=== PATIENT | female | born 1935 | race Caucasian/White ===

== ENCOUNTER 2017-09-03 10:06 | Emergency (ER) | payer MEDICARE, BC ==
[2017-09-03 10:22] VITALS: TEMP 97.2
--- NOTE | 2017-09-03 10:56 | ED ---
Upper Extremity HPI - General Chief Complaint: Extremity Injury, Upper Stated Complaint: Sliver in hand Time Seen by Provider: 09/03/17 10:30 Source: patient, RN notes reviewed Mode of arrival: ambulatory Limitations: no limitations - History of Present Illness Initial Comments: 81-year-old female presents emergency Department chief complaint of foreign body in her right hand. Patient states that she caught her hand on the wooden banister. Patient states is a sliver. She got the tip of the sliver out but the feels that there is more. Her tetanus is up-to-date. Patient denies any drainage no redness. - Related Data Home Medications Medication Instructions Recorded Confirmed Anagrelide HCl [Agrylin] 0.5 mg PO BID 11/06/15 04/18/16 Hydroxyurea [Hydrea] 500 mg PO TUTHSA 11/06/15 04/18/16 Levothyroxine Sodium [Synthroid] 25 mcg PO DAILY 11/06/15 04/18/16 Lovastatin [Mevacor] 20 mg PO HS 11/06/15 04/18/16 amLODIPine BESYLATE [Norvasc] 5 mg PO HS 11/06/15 04/18/16 Cholecalciferol [Vitamin D3] 2,000 unit PO DAILY 02/06/16 04/18/16 Ferrous Sulfate [Iron (65 MG 325 mg PO BID 02/06/16 04/18/16 Elemental)] Lisinopril-Hctz 20-25 mg 1 tab PO DAILY 02/06/16 04/18/16 [Zestoretic 20-25] Vitamin B Complex 1 cap PO DAILY 02/06/16 04/18/16 HYDROcodone/APAP 5-325MG [[place] 1 tab PO TID PRN 04/18/16 04/18/16 5-325] Hydroxyurea 1,000 mg PO MOWEFR 04/18/16 04/18/16 LORazepam [Ativan] 1 mg PO Q6H PRN 04/18/16 04/18/16 Metoprolol Tartrate [Lopressor] 75 mg PO BID 04/18/16 04/18/16 Omeprazole 20 mg PO DAILY 04/18/16 04/18/16 Previous Rx's Medication Instructions Recorded Cephalexin [Keflex] 500 mg PO Q6HR #28 cap 09/03/17 Allergies Allergy/AdvReac Type Severity Reaction Status Date / Time Sulfa (Sulfonamide Allergy Rash/Hives Verified 09/03/17 10:39 Antibiotics) Review of Systems ROS Statement: Those systems with pertinent positive or pertinent negative responses have been documented in the HPI. ROS Other: All systems not noted in ROS Statement are negative. Past Medical History Past Medical History: Blood Disorder, Cancer, Hyperlipidemia, Hypertension, Thyroid Disorder Additional Past Medical History / Comment(s): leukemia History of Any Multi-Drug Resistant Organisms: None Reported Past Surgical History: Joint Replacement Additional Past Surgical History / Comment(s): left knee replacement, ovarian cysts removed, left cataracts Past Psychological History: No Psychological Hx Reported Smoking Status: Never smoker Past Alcohol Use History: None Reported Past Drug Use History: None Reported General Exam Limitations: no limitations General appearance: alert, in no apparent distress Respiratory exam: Present: normal lung sounds bilaterally. Absent: respiratory distress, wheezes, rales, rhonchi, stridor Cardiovascular Exam: Present: regular rate, normal rhythm, normal heart sounds. Absent: systolic murmur, diastolic murmur, rubs, gallop, clicks Extremities exam: Present: other (Right hand there is possible foreign body in noticed any the superficial layers of the skin on right hand yee medial aspect) Course Vital Signs 09/03/17 10:19 Temperature 97.2 F L Pulse Rate 83 Respiratory 16 Rate Blood Pressure 133/84 O2 Sat by Pulse 99 Oximetry Procedures - Procedures Initial comment: Right hand foreign body removal. To anesthetize the area with 1% lidocaine without epinephrine 2 mL were used. 18-gauge needle was used to remove the top layer of skin, foreign body was removed. Still felt there was a partial piece further investigation removed small portions. Unable to visualize any other foreign body at this time there was thoroughly cleaned. Medical Decision Making - Medical Decision Making 81-year-old female presented for foreign body in right hand. Foreign body was removed the concern for possible retained foreign body. We did discuss that she 's have close follow patient was placed on antibiotics and return parameters were discussed. Disposition Clinical Impression: Foreign body (FB) in soft tissue Disposition: HOME SELF-CARE Condition: Stable Instructions: Soft Tissue Foreign Body (ED) Additional Instructions: Please return to the Emergency Department if symptoms worsen or any other concerns. Prescriptions: Cephalexin [Keflex] 500 mg PO Q6HR #28 cap Referrals: Alexys Al MD [Primary Care Provider] - 1-2 days Time of Disposition: 10:56
[2017-09-03 12:11] VITALS: BP 141/68; PULSE 74; RESP 18
== END 2017-09-03 12:03 | disposition home or self-care (01) ==
LOC: EC 10:06
DX: S60.551A Superficial foreign body of right hand, initial encounter (principal); E78.5 Hyperlipidemia, unspecified; I10 Essential (primary) hypertension; E07.9 Disorder of thyroid, unspecified; Z85.6 Personal history of leukemia; Z79.899 Other long term (current) drug therapy; Z88.2 Allergy status to sulfonamides; W45.8XXA Other foreign body or object entering through skin, initial encounter
CPT/HCPCS: 10120; 99283

== ENCOUNTER → 2018-09-10 | Outpatient (CLI) | payer MEDICARE, BC ==
--- NOTE | 2018-09-11 13:03 | ECHOF ---
Referral Reason:D47.3 Thrombocytosis MEASUREMENTS -------- HEIGHT: 170.2 cm WEIGHT: 71.2 kg BP: 151/76 RVIDd: 3.0 cm (< 3.3) IVSd: 0.9 cm (0.6 - 1.1) LVIDd: 3.4 cm (3.9 - 5.3) LVPWd: 1.0 cm (0.6 - 1.1) IVSs: 1.5 cm LVIDs: 2.5 cm LVPWs: 1.4 cm LA Diam: 2.7 cm (2.7 - 3.8) LAESV Index (A-L): 26.24 ml/m Ao Diam: 2.7 cm (2.0 - 3.7) AV Cusp: 1.7 cm (1.5 - 2.6) MV EXCURSION: 11.974 mm (> 18.000) MV EF SLOPE: 39 mm/s (70 - 150) EPSS: 0.3 cm MV E Ganesh: 0.86 m/s MV DecT: 173 ms MV A Ganesh: 1.41 m/s MV E/A Ratio: 0.61 AV maxP.25 mmHg AV meanP.00 mmHg RAP: 5.00 mmHg RVSP: 40.99 mmHg FINDINGS -------- Sinus rhythm. This was a technically adequate study. The left ventricular size is normal. Left ventricular wall thickness is normal. Overall left vent ricular systolic function is normal with, an EF between 55 - 60 %. The right ventricle is normal in size. Normal LA size by volume 22+/-6 ml/m2. The right atrium is normal in size. There is mild aortic valve sclerosis. There is mild aortic stenosis present. Peak/mean gradient a cross the Aortic Valve is 27.25mmHg / 15.00mmHg. The mitral valve leaflets are mildly thickened. Mild mitral annular calcification present. Modera te mitral regurgitation is present. Mild tricuspid regurgitation present. There is mild pulmonary hypertension. The right ventricular systolic pressure, as measured by Doppler, is 40.99mmHg. Moderate pulmonic regurgitation. The aortic root size is normal. Normal inferior vena cava with normal inspiratory collapse consistent with estimated right atrial pre ssure of 5 mmHg. The inferior vena cava is mildly dilated. There is no pericardial effusion. CONCLUSIONS -------- 1. Sinus rhythm. 2. This was a technically adequate study. 3. The left ventricular size is normal. 4. Left ventricular wall thickness is normal. 5. Overall left ventricular systolic function is normal with, an EF between 55 - 60 %. 6. The right ventricle is normal in size. 7. Normal LA size by volume 22+/-6 ml/m2. 8. The right atrium is normal in size. 9. There is mild aortic valve sclerosis. 10. There is mild aortic stenosis present. 11. Peak/mean gradient across the Aortic Valve is 27.25mmHg / 15.00mmHg. 12. The mitral valve leaflets are mildly thickened. 13. Mild mitral annular calcification present. 14. Moderate mitral regurgitation is present. 15. Mild tricuspid regurgitation present. 16. There is mild pulmonary hypertension. 17. The right ventricular systolic pressure, as measured by Doppler, is 40.99mmHg. 18. Moderate pulmonic regurgitation. 19. The aortic root size is normal. 20. Normal inferior vena cava with normal inspiratory collapse consistent with estimated right atrial pressure of 5 mmHg. 21. The inferior vena cava is mildly dilated. 22. There is no pericardial effusion. MANAGER ENGAGEMENT: Danya Ortega RDCS
== END | disposition home or self-care (01) ==
LOC: RADECHMAIN 16:14
PROVIDERS: ATTEND Internal Medicine
DX: I08.1 Rheumatic disorders of both mitral and tricuspid valves (principal); I27.20 Pulmonary hypertension, unspecified; D47.3 Essential (hemorrhagic) thrombocythemia
CPT/HCPCS: 93306

== ENCOUNTER → 2018-12-18 | Outpatient (CLI) | payer MEDICARE, BC ==
--- NOTE | 2018-12-18 11:49 | US ---
EXAMINATION TYPE: US carotid duplex BILAT DATE OF EXAM: 12/18/2018 COMPARISON: CT Brain CLINICAL HISTORY: R09.89 Left Carotid Bruit,I35.0 Aortic Stenosis. Patient stated has valve problem. EXAM MEASUREMENTS: RIGHT: Peak Systolic Velocity (PSV) cm/sec ----- Right CCA: 63.9 ----- Right ICA: 68.9 ----- Right ECA: 53.8 ICA/CCA ratio: 1.1 RIGHT: End Diastole cm/sec ----- Right CCA: 18.4 ----- Right ICA: 16.1 ----- Right ECA: 6.6 LEFT: Peak Systolic Velocity (PSV) cm/sec ----- Left CCA: 51.3 ----- Left ICA: 63.9 ----- Left ECA: 46.9 ICA/CCA ratio: 1.2 LEFT: End Diastole cm/sec ----- Left CCA: 13.9 ----- Left ICA: 18.4 ----- Left ECA: 6.2 VERTEBRALS (direction of flow): Right Vertebral: Antegrade Left Vertebral: Antegrade Rhythm: Normal Mild intimal thickening is noted throughout bilateral carotid systems, but PSV is wnl bilaterally. IMPRESSION: Mild degree of grayscale atheromatous plaquing with no sonographically evident hemodynam ically significant stenosis within either visualized carotid arterial system. Criteria for Assigning % of Stenosis / Diameter reduction (Estimation based on the indirect measurements of the internal carotid artery velocities (ICA PSV). 1. Normal (no stenosis)=ICA PSV < 125 cm/s: ratio < 2.0: ICA EDV<40 cm/s. 2. Less than 50% stenosis=ICA PSV < 125 cm/s: ratio < 2.0: ICA EDV<40 cm/s. 3. 50 to 69% stenosis=ICA PSV of 125 to 230 cm/s: ration 2.0 ? 4.0: ICA EDV 40-100 cm/s. 4. Greater than 70% stenosis to near occlusion= ICA PSV > 230 cm/s: ratio > 4.0: ICA EDV > 100 cm/s. 5. Near occlusion= ICA PSV velocities may be low or undetectable: variable ratio and ICA EDV. 6. Total occlusion=unable to detect flow.
== END | disposition home or self-care (01) ==
LOC: RADUSWWP 10:53
PROVIDERS: ATTEND Internal Medicine
DX: I65.23 Occlusion and stenosis of bilateral carotid arteries (principal); R09.89 Other specified symptoms and signs involving the circulatory and respiratory systems
CPT/HCPCS: 93880

== ENCOUNTER → 2019-01-22 | Outpatient (CLI) | payer MEDICARE, BC ==
[2019-01-22 16:46] LABS: Anisocytosis Slight; HCT 39.4 % (34.0-46.0); HGB 12.6 gm/dL (11.4-16.0); Hypochromasia Slight; MCH 33.7 pg (25.0-35.0); MCV 105.4 fL (80.0-100.0); Macrocytosis Moderate; Mean Platelet Volume 10.5; Platelet Count 302 k/uL (150-450); RBC 3.74 m/uL (3.80-5.40); RDW 17.2 % (11.5-15.5); WBC 12.4 k/uL (3.8-10.6)
[2019-01-22 16:56] LABS: Calcium 10.1 mg/dL (8.4-10.2); Potassium 5.4 mmol/L (3.5-5.1); Total Bilirubin 0.4 mg/dL (0.2-1.3); Total Protein 8.5 g/dL (6.3-8.2)
--- NOTE | 2019-01-23 10:07 | XR ---
EXAMINATION TYPE: XR chest 2V DATE OF EXAM: 01/22/2019 COMPARISON: 04/19/1960 TECHNIQUE: PA and lateral views submitted. HISTORY: Cough FINDINGS: Large hiatal hernia noted but there is increasing consolidation along the lateral margin left lower l obe. No pneumothorax or interstitial edema. No pleural effusion. Curvature the spine is stable. Heart size stable. IMPRESSION: 1. Large hiatal hernia, however, there is increasing consolidation within the left lower lobe lateral ly suggestive of pneumonia.
== END | disposition home or self-care (01) ==
LOC: RADXRMAIN 16:10
PROVIDERS: ATTEND Internal Medicine
DX: K44.9 Diaphragmatic hernia without obstruction or gangrene (principal); I35.0 Nonrheumatic aortic (valve) stenosis; D47.3 Essential (hemorrhagic) thrombocythemia; R06.02 Shortness of breath
CPT/HCPCS: 36415; 71046; 80053; 83880; 85027

== ENCOUNTER → 2019-02-06 | Outpatient (CLI) | payer MEDICARE, BC ==
--- NOTE | 2019-02-06 14:41 | CT ---
EXAMINATION TYPE: CT chest w con DATE OF EXAM: 02/06/2019 COMPARISON: Radiograph 01/22/2019 HISTORY: 83-year-old female SOB, abnormal CXR TECHNIQUE: Contiguous axial scanning of the chest after the administration of 100 mL of Isovue 300. Coronal/sagittal reconstructions performed. CT DLP: 146.7mGycm. Automatic exposure control utilized for a dose reduction. FINDINGS: Heart upper limits of normal in size without pericardial effusion. Coronary vessel calcifications are present. Mild atherosclerotic arch calcifications. Conventional arch vessel branching anatomy. Aorta normal ca liber but tortuous. Borderline caliber to the main right and left pulmonary arteries are 2.5 cm. Calcified subcarinal lymph nodes suggest prior granulomatous disease. No thoracic lymphadenopathy by CT size criteria. Volume loss of the left base secondary to very large hiatal hernia containing the entire stomach and also containing the distal half of the transverse colon. There is organoaxial positioning of the stom ach but no abnormal proximal dilatation or inflammatory changes. Mild scattered emphysematous cysts. 4 mm peripheral right upper lobe pulmonary nodule, axial image 15. Additional 4 mm right upper lobe p ulmonary nodule axial image 10. Volume loss at the left base with atelectasis. No meme consolidation or pleural effusion. Hypodense lesion upper pole left kidney measures 1.6 cm versus 1.2 cm in 2016, likely enlarging cyst. Partially visualized intermediate density lesion measuring 3.5 cm the left kidney is unchanged from 2016 suggesting a mildly complicated cyst. Irregular splenule is noted in the upper abdomen. Bones: Posttraumatic deformity appears chronic involving the T3 vertebral body with chronic collapse and partial interbody ankylosis at T3-T4. Grade 1 anterolisthesis at T2-T3. Accentuated thoracic kyph osis. IMPRESSION: 1. Very large hiatal hernia containing essentially the entire stomach which shows organoaxial positio citlali. No abnormal dilatation or inflammatory changes to suggest volvulus or obstruction. 2. The large hiatal hernia also contains the distal half of the nonobstructed transverse colon. 3. Volume loss and atelectasis at the left base. 4. Minimal scattered emphysematous change. A couple 4 mm pulmonary nodules right upper lobe can be re assessed in 12 months.
== END | disposition home or self-care (01) ==
LOC: RADCTMAIN 10:49
PROVIDERS: ATTEND Internal Medicine
DX: J98.11 Atelectasis (principal); R91.8 Other nonspecific abnormal finding of lung field
CPT/HCPCS: 82565; 84520; 71260; 36415; Q9967

== ENCOUNTER → 2019-06-28 | Outpatient (CLI) | payer MEDICARE, BC ==
--- NOTE | 2019-06-28 09:36 | BD ---
EXAMINATION TYPE: Axial Bone Density DATE OF EXAM: 06/28/2019 COMPARISON: NONE CLINICAL HISTORY: M 88.9 Height: 62.5 IN Weight: 154 LBS FRAX RISK QUESTIONS: History of Fracture in Adulthood: YES LT FOOT FX AGE 53 Secondary Osteoporosis: RISK FACTORS HISTORY OF: Active: YES Diet low in dairy products/other sources of calcium: YES Postmenopausal woman: AGE 49 Lost more than 2 inches in height since high school: YES 3" MEDICATIONS: Thyroid Medications: YES Which medication: Levothyroxine How Lon YEARS Additional Medications: LEVOTHYROXINE, LEUKEMIA MEDS, HIGH BLOOD PRESSURE MEDS, LASIX, PRILOSEC EXAM MEASUREMENTS: Bone mineral densitometry was performed using the [employer] System. Bone mineral density as measured about the Lumbar spine is: ----- L1-L4(G/cm2): 0.946 T Score Values are as follows: ----- L2: -2.5 ----- L3: -1.9 ----- L4: -1.9 ----- L1-L4: -1.9 Bone mineral density BASELINE Bone mineral density about the R hip (g/cm2): 0.784 Bone mineral density about the L hip (g/cm2): 0.837 T Score values are as follows: -----R Neck: -1.8 -----L Neck: -1.4 -----R Total: -2.0 -----L Total: -2.3 Bone mineral density BASELINE IMPRESSION: Osteopenia (T Score between -2.5 and -1). There is slightly increased risk of fracture and the patient may be considered for treatment. Re-Screen 2-5 years. NOTE: T-SCORE=SD OF THE YOUNG ADULT MEAN.
== END | disposition home or self-care (01) ==
LOC: RADBDWWP 08:34
PROVIDERS: ATTEND Internal Medicine
DX: M85.88 Other specified disorders of bone density and structure, other site (principal)
CPT/HCPCS: 77080

== ENCOUNTER 2020-08-09 14:43 | Inpatient (IN) | payer MEDICARE, BC ==
[2020-08-09] MEDS ORDERED: SODIUM CHLORIDE 0.9% 500 ML 500 ML IV STA (15:15)
--- NOTE | 2020-08-09 15:23 | ED ---
General Adult HPI - General Chief complaint: Shortness of Breath Stated complaint: SOB after vaccination Time Seen by Provider: 08/09/20 14:56 Source: patient Mode of arrival: ambulatory Limitations: no limitations - History of Present Illness Initial comments: Dictation was produced using [employer] dictation software. please excuse any grammatical, word or spelling errors. This patient was cared for during a federal and state declared state of ergency secondary to Covid 19 Chief Complaint: 84-year-old female past medical history of hypertension dyslipidemia and blood cancer presents with shortness of breath. History of Present Illness: 84-year-old female she has multiple comorbidities. Patient states she is feeling weak and lethargic. She did receive her Covid 19 vaccine on Monday. Patient lives alone. She was on fine on Monday most the day until yesterday afternoon when her symptoms started to get worse. She's been f eeling weak and confused. Patient's been complaining of shortness of breath. She has been having poor intake. Patient states that she feels weak. She is accompanied by her granddaughter in law. Patient complaining of side pain with a vaccine was administered. Patient also complains of dyspnea. The ROS documented in this emergency department record has been reviewed and confirmed by me. Those systems with pertinent positive or negative responses have been documented in the HPI. All other systems are other negative and/or noncontributory. PHYSICAL EXAM: General Impression: Alert and oriented x3, not in acute distress HEENT: Normocephalic atraumatic, extra-ocular movements intact, pupils equal and reactive to light bilaterally, mucous membranes moist. Cardiovascular: Tachycardic Chest: Able to complete full sentences, no retractions, no tachypnea, mild crackles to auscultation of the lungs Abdomen: abdomen soft, non-tender, non-distended, no organomegaly Musculoskeletal: Pulses present and equal in all extremities, no peripheral edema Motor: no focal deficits noted Neurological: CN II-XII grossly intact, no focal motor or sensory deficits noted Skin: Redness and erythema over the left deltoid were patient reports having had the Covid 19 vaccine Psych: Normal affect and mood ED course: 84-year-old female presents with shortness of breath and generalized weakness. Vital signs upon arrival shows heart rate of 125, rest of vital signs within acceptable limits. Medications were reviewed. Laboratory evaluation obtained. Mild leukocytosis at 12.6. Rest of CBC is un remarkable. There is some macrocytosis. Coag panel is negative. D-dimer is negative according to age-adjusted d-dimer. Metabolic panel shows an 132, potassium 6.0 with hemolysis. Magnesium of 1.4 rest of labs within acceptable limits. Of note there is a troponin that is 0.023. Slightly from a hemolyzed specimen versus infectious process. Urinalysis shows 12 white blood cells. Patient reevaluated bedside. She does appear to be comfortable. She does however not have a good social situation. Given patient's clinical presentation there is concern of pneumonia given x-ray findings with infiltrates and urinary tract infection. Failure is agreeable with having patient admitted to the [facility] for IV antibiotics, IV fluids and further medical monitoring. Patient be admitted to [facility]. Patient treated with azithromycin and ceftriaxone. EKG interpretation: Ventricular rate 120, sinus tachycardia,. Interval 164, QRS 120, QTC 480. No VA prolongation, no QTC prolongation, no ST or T-wave changes noted. EKG compared to however 12/30/2015 showing no changes. Overall, this EKG is unremarkable - Related Data Home Medications Medication Instructions Recorded Confirmed Anagrelide HCl [Agrylin] 0.5 mg PO BID 11/06/15 08/09/20 Hydroxyurea [Hydrea] 500 mg PO SUTUTHSA 11/06/15 08/09/20 Levothyroxine Sodium [Synthroid] 25 mcg PO DAILY 11/06/15 08/09/20 Lovastatin [Mevacor] 20 mg PO HS 11/06/15 08/09/20 amLODIPine BESYLATE [Norvasc] 5 mg PO DAILY 11/06/15 08/09/20 Hydroxyurea 1,000 mg PO MOWEFR 04/18/16 08/09/20 Omeprazole 20 mg PO DAILY 04/18/16 08/09/20 Metoprolol Tartrate [Lopressor] 75 mg PO DAILY 09/03/17 08/09/20 Aspirin EC [Ecotrin] 325 mg PO HS 08/09/20 08/09/20 Calcium W/Vitamin D3(Unknown Dose) 1 tab PO DAILY 08/09/20 08/09/20 Furosemide [Lasix] 20 mg PO DAILY 08/09/20 08/09/20 Vitamin A Red 1 cap PO BID 08/09/20 08/09/20 Vitamin B Complex 1 cap PO DAILY 08/09/20 08/09/20 Allergies Allergy/AdvReac Type Severity Reaction Status Date / Time Sulfa (Sulfonamide Allergy Rash/Hives Verified 08/09/20 18:24 Antibiotics) Review of Systems ROS Statement: Those systems with pertinent positive or pertinent negative responses have been documented in the HPI. ROS Other: All systems not noted in ROS Statement are negative. Past Medical History Past Medical History: Blood Disorder, Cancer, Hyperlipidemia, Hypertension, Thyroid Disorder Additional Past Medical History / Comment(s): leukemia History of Any Multi-Drug Resistant Organisms: None Reported Past Surgical History: Joint Replacement Additional Past Surgical History / Comment(s): left knee replacement, ovarian cysts removed, left cataracts Past Psychological History: No Psychological Hx Reported Smoking Status: Never smoker Past Alcohol Use History: None Reported Past Drug Use History: None Reported General Exam Limitations: no limitations Course Vital Signs 08/09/20 08/09/20 14:51 17:35 Temperature 97.8 F Pulse Rate 125 H 115 H Respiratory 22 16 Rate Blood Pressure 162/107 154/93 O2 Sat by Pulse 97 97 Oximetry Medical Decision Making - Lab Data Result diagrams: 08/09/20 15:51 08/09/20 15:51 Lab Results 08/09/20 08/09/20 08/09/20 Range/Units 15:14 15:51 15:51 WBC 12.6 H (3.8-10.6) k/uL RBC 4.28 (3.80-5.40) m/uL Hgb 14.8 (11.4-16.0) gm/dL Hct 45.5 (34.0-46.0) % MCV 106.2 H (80.0-100.0) fL MCH 34.6 (25.0-35.0) pg MCHC 32.6 (31.0-37.0) g/dL RDW 15.7 H (11.5-15.5) % Plt Count 290 (150-450) k/uL MPV 12.0 Neutrophils % 52 % Lymphocytes % 40 % Monocytes % 4 % Eosinophils % 2 % Basophils % 1 % Neutrophils # 6.5 (1.3-7.7) k/uL Lymphocytes # 5.1 H (1.0-4.8) k/uL Monocytes # 0.5 (0-1.0) k/uL Eosinophils # 0.2 (0-0.7) k/uL Basophils # 0.1 (0-0.2) k/uL Manual Slide Review Performed Macrocytosis Moderate Target Cells Present PT (9.0-12.0) sec INR (<1.2) APTT (22.0-30.0) sec D-Dimer (<0.60) mg/L FEU Sodium 132 L (137-145) mmol/L Potassium 6.0 H (3.5-5.1) mmol/L Chloride 95 L (98-107) mmol/L Carbon Dioxide 25 (22-30) mmol/L Anion Gap 12 mmol/L BUN 14 (7-17) mg/dL Creatinine 0.60 (0.52-1.04) mg/dL Est GFR (CKD-EPI)AfAm >90 (>60 ml/min/1.73 sqM) Est GFR (CKD-EPI)NonAf 84 (>60 ml/min/1.73 sqM) Glucose 112 H (74-99) mg/dL Plasma Lactic Acid Jay Jay (0.7-2.0) mmol/L Calcium 9.9 (8.4-10.2) mg/dL Magnesium 1.4 L (1.6-2.3) mg/dL Total Bilirubin 1.0 (0.2-1.3) mg/dL AST 46 H (14-36) U/L ALT 14 (4-34) U/L Alkaline Phosphatase 93 (38-126) U/L Troponin I 0.023 (0.000-0.034) ng/mL NT-Pro-B Natriuret Pep pg/mL Total Protein 9.0 H (6.3-8.2) g/dL Albumin 5.2 H (3.5-5.0) g/dL Urine Color Urine Appearance (Clear) Urine pH (5.0-8.0) Ur Specific [place] (1.001-1.035) Urine Protein (Negative) Urine Glucose (UA) (Negative) Urine Ketones (Negative) Urine Blood (Negative) Urine Nitrite (Negative) Urine Bilirubin (Negative) Urine Urobilinogen (<2.0) mg/dL Ur Leukocyte Esterase (Negative) Urine RBC (0-5) /hpf Urine WBC (0-5) /hpf Ur Squamous Epith Cells (0-4) /hpf 08/09/20 08/09/20 08/09/20 Range/Units 15:51 16:07 16:55 WBC (3.8-10.6) k/uL RBC (3.80-5.40) m/uL Hgb (11.4-16.0) gm/dL Hct (34.0-46.0) % MCV (80.0-100.0) fL MCH (25.0-35.0) pg MCHC (31.0-37.0) g/dL RDW (11.5-15.5) % Plt Count (150-450) k/uL MPV Neutrophils % % Lymphocytes % % Monocytes % % Eosinophils % % Basophils % % Neutrophils # (1.3-7.7) k/uL Lymphocytes # (1.0-4.8) k/uL Monocytes # (0-1.0) k/uL Eosinophils # (0-0.7) k/uL Basophils # (0-0.2) k/uL Manual Slide Review Macrocytosis Target Cells PT (9.0-12.0) sec INR (<1.2) APTT (22.0-30.0) sec D-Dimer (<0.60) mg/L FEU Sodium (137-145) mmol/L Potassium (3.5-5.1) mmol/L Chloride (98-107) mmol/L Carbon Dioxide (22-30) mmol/L Anion Gap mmol/L BUN (7-17) mg/dL Creatinine (0.52-1.04) mg/dL Est GFR (CKD-EPI)AfAm (>60 ml/min/1.73 sqM) Est GFR (CKD-EPI)NonAf (>60 ml/min/1.73 sqM) Glucose (74-99) mg/dL Plasma Lactic Acid Jay Jay 1.3 (0.7-2.0) mmol/L Calcium (8.4-10.2) mg/dL Magnesium (1.6-2.3) mg/dL Total Bilirubin (0.2-1.3) mg/dL AST (14-36) U/L ALT (4-34) U/L Alkaline Phosphatase (38-126) U/L Troponin I (0.000-0.034) ng/mL NT-Pro-B Natriuret Pep 922 pg/mL Total Protein (6.3-8.2) g/dL Albumin (3.5-5.0) g/dL Urine Color Light Yellow Urine Appearance Clear (Clear) Urine pH 6.0 (5.0-8.0) Ur Specific [place] 1.008 (1.001-1.035) Urine Protein 1+ H (Negative) Urine Glucose (UA) Negative (Negative) Urine Ketones 1+ H (Negative) Urine Blood Negative (Negative) Urine Nitrite Negative (Negative) Urine Bilirubin Negative (Negative) Urine Urobilinogen <2.0 (<2.0) mg/dL Ur Leukocyte Esterase Small H (Negative) Urine RBC <1 (0-5) /hpf Urine WBC 12 H (0-5) /hpf Ur Squamous Epith Cells <1 (0-4) /hpf 08/09/20 Range/Units 17:58 WBC (3.8-10.6) k/uL RBC (3.80-5.40) m/uL Hgb (11.4-16.0) gm/dL Hct (34.0-46.0) % MCV (80.0-100.0) fL MCH (25.0-35.0) pg MCHC (31.0-37.0) g/dL RDW (11.5-15.5) % Plt Count (150-450) k/uL MPV Neutrophils % % Lymphocytes % % Monocytes % % Eosinophils % % Basophils % % Neutrophils # (1.3-7.7) k/uL Lymphocytes # (1.0-4.8) k/uL Monocytes # (0-1.0) k/uL Eosinophils # (0-0.7) k/uL Basophils # (0-0.2) k/uL Manual Slide Review Macrocytosis Target Cells PT 10.5 (9.0-12.0) sec INR 1.0 (<1.2) APTT 25.1 (22.0-30.0) sec D-Dimer 0.74 H (<0.60) mg/L FEU Sodium (137-145) mmol/L Potassium (3.5-5.1) mmol/L Chloride (98-107) mmol/L Carbon Dioxide (22-30) mmol/L Anion Gap mmol/L BUN (7-17) mg/dL Creatinine (0.52-1.04) mg/dL Est GFR (CKD-EPI)AfAm (>60 ml/min/1.73 sqM) Est GFR (CKD-EPI)NonAf (>60 ml/min/1.73 sqM) Glucose (74-99) mg/dL Plasma Lactic Acid [place] (0.7-2.0) mmol/L Calcium (8.4-10.2) mg/dL Magnesium (1.6-2.3) mg/dL Total Bilirubin (0.2-1.3) mg/dL AST (14-36) U/L ALT (4-34) U/L Alkaline Phosphatase (38-126) U/L Troponin I (0.000-0.034) ng/mL NT-Pro-B Natriuret Pep pg/mL Total Protein (6.3-8.2) g/dL Albumin (3.5-5.0) g/dL Urine Color Urine Appearance (Clear) Urine pH (5.0-8.0) Ur Specific [place] (1.001-1.035) Urine Protein (Negative) Urine Glucose (UA) (Negative) Urine Ketones (Negative) Urine Blood (Negative) Urine Nitrite (Negative) Urine Bilirubin (Negative) Urine Urobilinogen (<2.0) mg/dL Ur Leukocyte Esterase (Negative) Urine RBC (0-5) /hpf Urine WBC (0-5) /hpf Ur Squamous Epith Cells (0-4) /hpf Disposition Clinical Impression: Dyspnea Disposition: ADMITTED IP TO THIS [facility] Condition: Fair Referrals: Barrington Rivera MD [Primary Care Provider] - 1-2 days Decision Time: 19:17
--- NOTE | 2020-08-09 15:36 | XR ---
EXAMINATION TYPE: XR chest 1V portable DATE OF EXAM: 08/09/2020 COMPARISON: 01/22/2019 HISTORY: Difficulty breathing TECHNIQUE: FINDINGS: There is large hiatal hernia. There is coarse interstitial density in the lungs. There is n o pleural effusion. IMPRESSION: Minimal interstitial infiltrate that is mostly new compared to old exam. No heart failure . Large hiatal hernia appears increased compared to old exam.
[2020-08-09 16:06] LABS: Basophils # (A) 0.1 k/uL (0-0.2); Basophils % (A) 1 %; Eosinophils # (A) 0.2 k/uL (0-0.7); Eosinophils % (A) 2 %; HCT 45.5 % (34.0-46.0); HGB 14.8 gm/dL (11.4-16.0); Lymphocytes # (A) 5.1 k/uL (1.0-4.8); Lymphocytes % (A) 40 %; MCH 34.6 pg (25.0-35.0); MCHC 32.6 g/dL (31.0-37.0); MCV 106.2 fL (80.0-100.0); Macrocytosis Moderate; Monocytes # (A) 0.5 k/uL (0-1.0); Monocytes % (A) 4 %; Neutrophils # (A) 6.5 k/uL (1.3-7.7); Neutrophils % (A) 52 %; Platelet Count 290 k/uL (150-450); RBC 4.28 m/uL (3.80-5.40); RDW 15.7 % (11.5-15.5); WBC 12.6 k/uL (3.8-10.6)
[2020-08-09 16:09] LABS: ALT 14 U/L (4-34); AST 46 U/L (14-36); African American GFR (CKD) >90 (>60 ml/min/1.73 sqM); Albumin 5.2 g/dL (3.5-5.0); Alkaline Phosphatase 93 U/L (38-126); Anion Gap 12 mmol/L; Blood Urea Nitrogen 14 mg/dL (7-17); Calcium 9.9 mg/dL (8.4-10.2); Carbon Dioxide 25 mmol/L (22-30); Chloride 95 mmol/L (98-107); Glucose 112 mg/dL (74-99); Magnesium 1.4 mg/dL (1.6-2.3); Non-African American GFR(CKD) 84 (>60 ml/min/1.73 sqM); Sodium 132 mmol/L (137-145)
[2020-08-09 16:42] LABS: Appearance,Urine Clear (Clear); Bilirubin,Urine Negative (Negative); Blood,Urine Negative (Negative); Color,Urine Light Yellow; Glucose,Urine (UA) Negative (Negative); Ketones,Urine 1+ (Negative); Leukocyte Esterase,Urine Small (Negative); Nitrite,Urine Negative (Negative); Protein,Urine 1+ (Negative); RBC,Urine <1 /hpf (0-5); Specific Gravity,Urine 1.008 (1.001-1.035); Squamous Epithelial Cell,Urine <1 /hpf (0-4); Urobilinogen,Urine <2.0 mg/dL (<2.0); WBC,Urine 12 /hpf (0-5)
[2020-08-09 17:09] LABS: Target Cells Present
[2020-08-09 18:22] LABS: Partial Thromboplastin Time 25.1 sec (22.0-30.0); Prothrombin Time 10.5 sec (9.0-12.0)
[2020-08-09] MEDS ORDERED: ACETAMINOPHEN TAB 500 MG TAB PO STA (18:38)
[2020-08-09] MEDS ORDERED: cefTRIAXone IN SWFI 1,000 MG/10 ML SYRINGE IVP STA (18:39)
[2020-08-09] MEDS ORDERED: AZITHROMYCIN 500 MG in SODIUM CHLORIDE 0.9% 250 ML IVPB STA (18:39)
[2020-08-09] MEDS ORDERED: HYDROXYUREA 500 MG CAP PO SCH (19:15)
[2020-08-09] MEDS: MAGNESIUM SULFATE-D5W PMX 1 GM in DEXTROSE/WATER 1 100ML.BAG IVPB SCH ×2 (21:55→22:38)
--- NOTE | 2020-08-09 22:27 | P.HPIM ---
History of Present Illness H&P Date: 08/09/20 The patient is an 84-year-old female with a PMH of hypertension, hyperlipidemia, hypothyroid rhythm who was brought into the emergency room by her granddaughter due to confusion. The history is supplemented by the granddaughter at the bedside. Patient notes that after receiving her second dose of her Covid vaccine, she simply did not feel like herself. She reports having difficulty urinating, overall body aches, occasional chest tightness, and feeling as though she was not able to think. She denied focal weakness, numbness, or tingling. She also denied cough, shortness of breath, fever, chills, nausea, vomiting. The patient lives by herself and a friend of the patient notified the family that she did not appear to be herself. The granddaughter states that the patient is normally high functioning and is able to complete all her ADLs. In the emergency room a chest x-ray revealed a large hiatal hernia and an interstitial lung density increased from prior. EKG revealed sinus a cardiac 120 bpm with a left bundle branch block (LBBB noted on a prior EKG from 2016). Laboratory evaluation revealed a WBC count 12.6, d-dimer 0.74, sodium 132, potassium 6.0 (hemolyzed) chloride 95, glucose 112, magnesium 1.4, lactic acid 1.3, AST 46, troponin 0.036, proBNP 922, and UA with 12 WBCs. Review of Systems Pertinent positives and negatives as discussed in HPI, a complete review of systems was performed and all other systems are negative. Past Medical History Past Medical History: Blood Disorder, Cancer, Hyperlipidemia, Hypertension, Thyroid Disorder Additional Past Medical History / Comment(s): leukemia History of Any Multi-Drug Resistant Organisms: None Reported Past Surgical History: Joint Replacement Additional Past Surgical History / Comment(s): left knee replacement, ovarian cysts removed, left cataracts Past Psychological History: No Psychological Hx Reported Smoking Status: Never smoker Past Alcohol Use History: None Reported Past Drug Use History: None Reported Medications and Allergies Home Medications Medication Instructions Recorded Confirmed Type Anagrelide HCl [Agrylin] 0.5 mg PO BID 11/06/15 08/09/20 History Hydroxyurea [Hydrea] 500 mg PO SUTUTHSA 11/06/15 08/09/20 History Levothyroxine Sodium [Synthroid] 25 mcg PO DAILY 11/06/15 08/09/20 History Lovastatin [Mevacor] 20 mg PO HS 11/06/15 08/09/20 History amLODIPine BESYLATE [Norvasc] 5 mg PO DAILY 11/06/15 08/09/20 History Hydroxyurea 1,000 mg PO MOWEFR 04/18/16 08/09/20 History Omeprazole 20 mg PO DAILY 04/18/16 08/09/20 History Metoprolol Tartrate [Lopressor] 75 mg PO DAILY 09/03/17 08/09/20 History Aspirin EC [Ecotrin] 325 mg PO HS 08/09/20 08/09/20 History Calcium W/Vitamin D3(Unknown Dose) 1 tab PO DAILY 08/09/20 08/09/20 History Furosemide [Lasix] 20 mg PO DAILY 08/09/20 08/09/20 History Vitamin A Red 1 cap PO BID 08/09/20 08/09/20 History Vitamin B Complex 1 cap PO DAILY 08/09/20 08/09/20 History Allergies Allergy/AdvReac Type Severity Reaction Status Date / Time Sulfa (Sulfonamide Allergy Rash/Hives Verified 08/09/20 18:24 Antibiotics) Physical Exam Vitals: Vital Signs Temp Pulse Resp BP Pulse Ox 08/09/20 17:35 115 H 16 154/93 97 08/09/20 14:51 97.8 F 125 H 22 162/107 97 Intake and Output 08/09/20 08/09/20 08/09/20 06:59 14:59 22:59 Other: Weight 63.503 kg General: non toxic, no distress, appears at stated age, normal weight Derm: no unusual rashes/lesions no unusual ecchymoses, warm, dry Head: atraumatic, normocephalic, symmetric Eyes: EOMI, no lid lag, anicteric sclera, pupils equal round reactive to light ENT: Nose and ears atraumatic, no thrush, no pharyngeal erythema Neck: No thyromegaly, no cervical lymphadenopathy, trachea midline, supple Mouth: no lip lesion, mucus membranes moist Cardiovascular: S1S2 reg, no murmur, positive posterior tibial pulse bilateral, trace bilateral lower extremity edema, capillary refill less than 2 seconds Lungs: CTA bilateral, no rhonchi, no rales , no accessory muscle use Abdominal: soft, mild suprapubic tenderness, no guarding, no appreciable organomegaly, normal bowel sounds Ext: no gross muscle atrophy, muscle strength 4 out of 5 in all 4 extremities grossly, no contractures, Neuro: CN II-XI grossly intact, light touch intact all 4 extremities, finger to nose within normal limits, Psych: Alert, oriented to person and place, not oriented to time Results CBC & Chem 7: 08/09/20 15:51 08/09/20 15:51 Labs: Abnormal Lab Results - Last 24 Hours (Table) 08/09/20 08/09/20 08/09/20 Range/Units 15:51 15:51 16:07 WBC 12.6 H (3.8-10.6) k/uL MCV 106.2 H (80.0-100.0) fL RDW 15.7 H (11.5-15.5) % Lymphocytes # 5.1 H (1.0-4.8) k/uL D-Dimer (<0.60) mg/L FEU Sodium 132 L (137-145) mmol/L Potassium 6.0 H (3.5-5.1) mmol/L Chloride 95 L (98-107) mmol/L Glucose 112 H (74-99) mg/dL Magnesium 1.4 L (1.6-2.3) mg/dL AST 46 H (14-36) U/L Troponin I (0.000-0.034) ng/mL Total Protein 9.0 H (6.3-8.2) g/dL Albumin 5.2 H (3.5-5.0) g/dL Urine Protein 1+ H (Negative) Urine Ketones 1+ H (Negative) Ur Leukocyte Esterase Small H (Negative) Urine WBC 12 H (0-5) /hpf 08/09/20 08/09/20 Range/Units 17:58 19:30 WBC (3.8-10.6) k/uL MCV (80.0-100.0) fL RDW (11.5-15.5) % Lymphocytes # (1.0-4.8) k/uL D-Dimer 0.74 H (<0.60) mg/L FEU Sodium (137-145) mmol/L Potassium (3.5-5.1) mmol/L Chloride (98-107) mmol/L Glucose (74-99) mg/dL Magnesium (1.6-2.3) mg/dL AST (14-36) U/L Troponin I 0.036 H* (0.000-0.034) ng/mL Total Protein (6.3-8.2) g/dL Albumin (3.5-5.0) g/dL Urine Protein (Negative) Urine Ketones (Negative) Ur Leukocyte Esterase (Negative) Urine WBC (0-5) /hpf Assessment and Plan Plan: Sepsis secondary to UTI versus community acquired pneumonia -Continue with ceftriaxone and azithromycin for now -Gentle hydration -Urine culture Troponin elevation -Likely secondary to ongoing sepsis -Continue to trend for now -Cardiac monitoring Hyponatremia -Likely secondary to poor oral intake -Continue with gentle hydration and monitor for now Chronic conditions: Hypertension, hyperlipidemia, hypothyroidism -Continue with home meds DVT prophylaxis -Heparin subq The patient is admitted with an anticipated greater than 2 midnight stay for evaluation of UTI CODE STATUS: No Code Discussed with: Patient, Granddaughter (M POA) Anticipated discharge date: 2-[address]: Home A total of 40 minutes was spent on the care of this complex patient more than 50% of the time was spent in counseling and care coordination.
[2020-08-09] MEDS: HYDROXYUREA 500 MG CAP PO SCH (22:31)
--- NOTE | 2020-08-09 22:31 | P.PN ---
Progress Note - Text Progress Note Date: 08/09/20 Advanced Care Planning Active Diagnosis: Sepsis secondary to UTI Persons present: Patient, granddaughter Summary: Discussed the patient's goals of care in great detail with both the patient and her medical power of state's attorney granddaughter at the bedside. The patient notes that she does not wish to undergo CPR or be placed on life support in the event of cardiac arrest or if she was to become critically ill. She does not wish to be placed on life support for any reasons but would like those discussions to be held with the family members; granddaughter and grandson who were co-POAs. Explained to the caveats of CPR and different forms of life support. Answer questions for both the patient and her family members. Will make patient No Code. Time spent: Total time spent face to face in education and discussion directly related to advanced care plannin minutes
[2020-08-10] MEDS: HEPARIN SODIUM,PORCINE 5,000 UNIT/ML 1 ML VIAL SQ SCH ×3 (01:15→15:41)
[2020-08-10] MEDS: SODIUM CHLORIDE 0.9% 1,000 ML IV SCH (06:14)
[2020-08-10] MEDS: LEVOTHYROXINE 25 MCG TAB PO SCH (06:14)
[2020-08-10] MEDS: AZITHROMYCIN 500 MG TAB PO SCH (08:45)
[2020-08-10] MEDS: PANTOPRAZOLE 40 MG TABLET PO SCH (08:45)
[2020-08-10] MEDS ORDERED: amLODIPine 5 MG TAB PO SCH (09:00)
[2020-08-10] MEDS ORDERED: METOPROLOL TARTRATE 25 MG TAB PO SCH (09:00)
[2020-08-10] MEDS ORDERED: ANAGRELIDE 0.5 MG CAP PO SCH (09:00)
[2020-08-10] MEDS: HYDROXYUREA 500 MG CAP PO SCH (10:35)
[2020-08-10 11:18] LABS: African American GFR (CKD) 91.6 (60.0-200.0); Albumin 4.4 g/dL (3.80-4.90); Albumin/Globulin Ratio 1.29 (1.60-3.17); Anion Gap 12.8 mmol/L (4.00-12.00); BUN/Creat Ratio 12.86 Ratio (12.00-20.00); Calcium 9.7 mg/dL (8.7-10.3); Carbon Dioxide 23.2 mmol/L (21.6-31.8); Chol/HDL Ratio 4.2; Globulin 3.4 g/dL (1.6-3.3); LDL Cholesterol,Calculated 123.8 mg/dL (0.0-131.0); Potassium 3.9 mmol/L (3.5-5.5); Total Bilirubin 0.4 mg/dL (0.3-1.2); Total Protein 7.8 g/dL (6.2-8.2); VLDL Calculation 33.2 mg/dL (5.00-40.00)
--- NOTE | 2020-08-10 11:21 | P.CRDCN ---
History of Present Illness Consult date: 08/10/20 History of present illness: CHIEF COMPLAINT: Elevated troponin HISTORY OF PRESENT ILLNESS: This is a 84-year-old female with a past medical history significant for hypertension, hyperlipidemia, and hypothyroidism. Patient does not follow with a nitrate operator. We have been asked to see the patient in consultation for elevated troponin. Patient examined this morning at the bedside. Patient is alert and oriented at the time of examination. Patient states that she received her second dose of the Covid vaccine on Monday. She states afterwards she experienced multiple side effects including confusion, difficulty urinating, generalized body aches, and difficulty thinking. Patient states that she is almost back to her baseline this morning. She currently denies chest pain or pressure. She denies shortness of breath. Denies dizziness or lightheadedness. Denies nausea or vomiting. Blood pressure this morning was noted to be 170/80 with a heart rate of 116. Patient received her morning medications and repeat blood pressure was 156/84 with a heart rate of 79. DIAGNOSTICS: EKG reveals sinus tachycardia with a heart rate of 120. Left bundle branch block. Chest xray minimal interstitial infiltrate that is mostly new compared to old exam. No heart failure. Large hiatal hernia that is Increased compared to old exam. Laboratory data: WBC 12.6. Hemoglobin 14.8. Platelet count 290. D-dimer 0.74. Sodium 132. Potassium 6.0. BUN 14. Creatinine 0.60. Troponin 0.023. 0.036. 0.034. BNP 922. Current home cardiac medications include Lasix 20 mg daily, amlodipine 5 mg daily, metoprolol 75 mg daily, aspirin 325 mg daily, and Lovastatin 20mg daily Echocardiogram completed in 2019 revealing ejection fraction 55-60% REVIEW OF SYSTEMS: At the time of my exam: CONSTITUTIONAL: Denies fever or chills. HEENT: Denies blurred vision, vision changes, or eye pain. Denies hemoptysis CARDIOVASCULAR: Denies chest pain, orthopnea, PND or palpitations RESPIRATORY: No shortness of breath. GASTROINTESTINAL: Denies abdominal pain. Denies nausea or vomiting. HEMATOLOGIC: Denies bleeding disorders. GENITOURINARY: Denies any blood in urine. SKIN: Denies pruitis. Denies rash. PHYSICAL EXAM: VITAL SIGNS: Reviewed. GENERAL: Well-developed in no acute distress. HEENT: Head is normocephalic. Pupils are equal, round. Sclerae anicteric. Mucous membranes of the mouth are moist. Neck supple. No JVD or thyromegaly LUNGS: Respirations even and unlabored. Lungs essentially clear to auscultation bilaterally. HEART: Regular rate and rhythm. S1 and S2 heard. ABDOMEN: Soft. Nondistended. Nontender. EXTREMITIES: Normal range of motion. No clubbing or cyanosis. Peripheral pulses intact. No lower extremity edema NEUROLOGIC: Awake and alert. Oriented x 3. ASSESSMENT: Weakness, body aches, and confusion: may be secondary to Covid 19 vaccine Urinary tract infection, present on admission Mildly abnormal troponin, no evidence of acute coronary syndrome Hypertension Hyperlipidemia Hypothyroidism PLAN: An acute coronary event has been ruled out Increase Norvasc to 5mg BID Monitor blood pressure Obtain 2D echo to assess cardiac structure and function Further recommendations pending patient course Nurse practitioner note has been reviewed by physician. Signing provider agrees with the documented findings, assessment, and plan of care. Past Medical History Past Medical History: Blood Disorder, Cancer, Hyperlipidemia, Hypertension, Thyroid Disorder Additional Past Medical History / Comment(s): leukemia History of Any Multi-Drug Resistant Organisms: None Reported Past Surgical History: Joint Replacement Additional Past Surgical History / Comment(s): left knee replacement, ovarian cysts removed, left cataracts Past Anesthesia/Blood Transfusion Reactions: No Reported Reaction Past Psychological History: No Psychological Hx Reported Smoking Status: Never smoker Past Alcohol Use History: None Reported Past Drug Use History: None Reported Medications and Allergies Home Medications Medication Instructions Recorded Confirmed Type Anagrelide HCl [Agrylin] 0.5 mg PO BID 11/06/15 08/09/20 History Hydroxyurea [Hydrea] 500 mg PO SUTUTHSA 11/06/15 08/09/20 History Levothyroxine Sodium [Synthroid] 25 mcg PO DAILY 11/06/15 08/09/20 History Lovastatin [Mevacor] 20 mg PO HS 11/06/15 08/09/20 History amLODIPine BESYLATE [Norvasc] 5 mg PO DAILY 11/06/15 08/09/20 History Hydroxyurea 1,000 mg PO MOWEFR 04/18/16 08/09/20 History Omeprazole 20 mg PO DAILY 04/18/16 08/09/20 History Metoprolol Tartrate [Lopressor] 75 mg PO DAILY 09/03/17 08/09/20 History Aspirin EC [Ecotrin] 325 mg PO HS 08/09/20 08/09/20 History Calcium W/Vitamin D3(Unknown Dose) 1 tab PO DAILY 08/09/20 08/09/20 History Furosemide [Lasix] 20 mg PO DAILY 08/09/20 08/09/20 History Vitamin A Red 1 cap PO BID 08/09/20 08/09/20 History Vitamin B Complex 1 cap PO DAILY 08/09/20 08/09/20 History Allergies Allergy/AdvReac Type Severity Reaction Status Date / Time Sulfa (Sulfonamide Allergy Rash/Hives Verified 08/09/20 18:24 Antibiotics) Physical Exam Vitals: Vital Signs Temp Pulse Pulse Resp BP BP Pulse Ox 08/10/20 09:39 79 156/84 08/10/20 08:00 97.5 F L 116 H 20 170/80 97 08/10/20 03:00 97.6 F 102 H 17 162/72 95 08/09/20 21:41 98.1 F 102 H 14 166/85 95 08/09/20 20:00 104 H 08/09/20 17:35 115 H 16 154/93 97 08/09/20 14:51 97.8 F 125 H 22 162/107 97 Intake and Output 08/09/20 08/10/20 08/10/20 22:59 06:59 14:59 Other: Voiding Method Toilet Bedside Commode # Voids 10 5 # Bowel Movements 1 2 Weight 63.503 kg Results 08/09/20 15:51 08/09/20 15:51 Cardiac Enzymes 08/09/20 08/09/20 08/09/20 Range/Units 15:14 15:51 19:30 AST 46 H (14-36) U/L Troponin I 0.023 0.036 H* (0.000-0.034) ng/mL 08/09/20 Range/Units 22:19 AST (14-36) U/L Troponin I 0.034 (0.000-0.034) ng/mL Coagulation 08/09/20 Range/Units 17:58 PT 10.5 (9.0-12.0) sec APTT 25.1 (22.0-30.0) sec CBC 08/09/20 Range/Units 15:51 WBC 12.6 H (3.8-10.6) k/uL RBC 4.28 (3.80-5.40) m/uL Hgb 14.8 (11.4-16.0) gm/dL Hct 45.5 (34.0-46.0) % Plt Count 290 (150-450) k/uL Comprehensive Metabolic Panel 08/09/20 Range/Units 15:51 Sodium 132 L (137-145) mmol/L Potassium 6.0 H (3.5-5.1) mmol/L Chloride 95 L (98-107) mmol/L Carbon Dioxide 25 (22-30) mmol/L BUN 14 (7-17) mg/dL Creatinine 0.60 (0.52-1.04) mg/dL Glucose 112 H (74-99) mg/dL Calcium 9.9 (8.4-10.2) mg/dL AST 46 H (14-36) U/L ALT 14 (4-34) U/L Alkaline Phosphatase 93 (38-126) U/L Total Protein 9.0 H (6.3-8.2) g/dL Albumin 5.2 H (3.5-5.0) g/dL Current Medications Generic Name Dose Route Start Last Admin Trade Name Freq PRN Reason Stop Dose Admin Amlodipine Besylate 5 mg 08/10/20 21:00 Amlodipine 5 Mg Tab PO BID [facility] Aspirin 325 mg 08/10/20 21:00 Aspirin 325 Mg Tab PO HS [facility] Atorvastatin Calcium 10 mg 08/10/20 21:00 Atorvastatin 10 Mg Tab PO HS [facility] Azithromycin 500 mg 08/10/20 09:00 08/10/20 08:45 Azithromycin 500 Mg Tab PO 500 mg DAILY DAJA Administration Heparin Sodium (Porcine) 5,000 unit 08/10/20 00:00 08/10/20 08:45 Heparin Sodium,Porcine 5,000 Unit/Ml 1 Ml Vial SQ 5,000 unit Q8HR DAJA Administration Hydroxyurea 1,000 mg 08/10/20 09:00 08/10/20 10:35 Hydroxyurea 500 Mg Cap PO 1,000 mg MOWEFR DAJA Administration Hydroxyurea 500 mg 08/09/20 20:00 08/09/20 22:31 Hydroxyurea 500 Mg Cap PO 500 mg SuTuThSa@0900 DAJA Administration Ceftriaxone Sodium 1 gm/ 50 mls @ 100 mls/hr 08/10/20 09:00 08/10/20 08:45 Sodium Chloride IVPB 100 mls/hr Q24HR DAJA Administration Sodium Chloride 1,000 mls @ 50 mls/hr 08/10/20 04:00 08/10/20 06:14 Saline 0.9% IV 50 mls/hr .Q20H DAJA Administration Levothyroxine Sodium 25 mcg 08/10/20 06:30 08/10/20 06:14 Levothyroxine 25 Mcg Tab PO 25 mcg DAILY@0630 DAJA Administration Metoprolol Tartrate 75 mg 08/10/20 09:00 08/10/20 08:45 Metoprolol Tartrate 25 Mg Tab PO 75 mg DAILY DAJA Administration Pantoprazole Sodium 40 mg 08/10/20 07:30 08/10/20 08:45 Pantoprazole 40 Mg Tablet PO 40 mg DAILY@0730 DAJA Administration Intake and Output 08/09/20 08/10/20 08/10/20 22:59 06:59 14:59 Other: Voiding Method Toilet Bedside Commode # Voids 10 5 # Bowel Movements 1 2 Weight 63.503 kg 08/09/20 15:51 08/09/20 15:51
[2020-08-10 13:20] LABS: HCT 42.6 % (37.2-46.3); HGB 14.1 g/dL (12.0-15.0); MCH 34.1 pg (27.0-32.0); MCHC 33.1 g/dL (32.0-37.0); MCV 102.9 fL (80.0-97.0); Mean Platelet Volume 12.4 fL (9.5-12.2); Platelet Count 285 X 10*3/uL (140-440); RBC 4.14 X 10*6/uL (4.10-5.20); RDW 15.8 % (11.5-14.5); WBC 13.01 X 10*3/uL (4.50-10.00)
--- NOTE | 2020-08-10 16:48 | P.PN ---
Subjective Progress Note Date: 08/10/20 Patient is doing well today. She was up in the chair talking on the phone. She does not have any complaints. Objective - Vital Signs Vital signs: Vital Signs Temp 97.5 F L 08/10/20 08:00 Pulse 79 08/10/20 09:39 Resp 20 08/10/20 08:00 BP 156/84 08/10/20 09:39 Pulse Ox 97 08/10/20 08:00 Intake & Output 08/09/20 08/10/20 08/10/20 18:59 06:59 18:59 Weight 63.503 kg 63.503 kg Other: Voiding Method Toilet Toilet Bedside Commode Bedside Commode # Voids 10 5 # Bowel Movements 1 2 - Exam General: The patient is awake and alert, in no distress Eye: there is normal conjunctiva bilaterally. Neck: The neck is supple, there is no JVD. Cardiovascular: Normal S1-S2, no S3-S4, no murmurs. Respiratory: Lungs clear to auscultation bilaterally Gastrointestinal: Abdomen is soft, nontender Musculoskeletal: There is no pedal edema. Neurological:. Speech is normal. Skin: Skin is warm and dry - Labs CBC & Chem 7: 08/10/20 07:09 08/10/20 07:09 Labs: Abnormal Lab Results - Last 24 Hours (Table) 08/09/20 08/09/20 08/09/20 Range/Units 15:51 16:07 17:58 WBC (4.50-10.00) X 10*3/uL MCV (80.0-97.0) fL MCH (27.0-32.0) pg RDW (11.5-14.5) % MPV (9.5-12.2) fL Lymphocytes # 5.1 H (1.0-4.8) k/uL D-Dimer 0.74 H (<0.60) mg/L FEU Anion Gap (4.00-12.00) mmol/L Troponin I (0.000-0.034) ng/mL Globulin (1.6-3.3) g/dL Albumin/Globulin Ratio (1.60-3.17) g/dL Triglycerides (0.0-149.0) mg/dL Cholesterol (0-200) mg/dL Urine Protein 1+ H (Negative) Urine Ketones 1+ H (Negative) Ur Leukocyte Esterase Small H (Negative) Urine WBC 12 H (0-5) /hpf 08/09/20 08/10/20 08/10/20 Range/Units 19:30 07:09 07:09 WBC 13.01 H (4.50-10.00) X 10*3/uL MCV 102.9 H (80.0-97.0) fL MCH 34.1 H (27.0-32.0) pg RDW 15.8 H (11.5-14.5) % MPV 12.4 H (9.5-12.2) fL Lymphocytes # (1.0-4.8) k/uL D-Dimer (<0.60) mg/L FEU Anion Gap 12.80 H (4.00-12.00) mmol/L Troponin I 0.036 H* (0.000-0.034) ng/mL Globulin 3.4 H (1.6-3.3) g/dL Albumin/Globulin Ratio 1.29 L (1.60-3.17) g/dL Triglycerides 166.0 H (0.0-149.0) mg/dL Cholesterol 206 H (0-200) mg/dL Urine Protein (Negative) Urine Ketones (Negative) Ur Leukocyte Esterase (Negative) Urine WBC (0-5) /hpf Microbiology - Last 24 Hours (Table) 08/09/20 16:07 Urine Culture - Preliminary Urine,Voided Assessment and Plan Assessment: Sepsis secondary to UTI versus community acquired pneumonia -Continue with ceftriaxone and azithromycin for now -Gentle hydration -Urine culture Troponin elevation -Likely secondary to ongoing sepsis -Continue to trend for now -Cardiac monitoring -Cardiology consulted awaiting echocardiogram Hyponatremia -Likely secondary to poor oral intake -Continue with gentle hydration and monitor for now Chronic conditions: Hypertension, hyperlipidemia, hypothyroidism -Continue with home meds DVT prophylaxis -Heparin subq
[2020-08-10] MEDS: amLODIPine 5 MG TAB PO SCH (18:03)
--- NOTE | 2020-08-10 18:27 | P.PN ---
Progress Note - Text Progress Note Date: 08/10/20 A code stroke was called on this patient due to sudden onset of slurred speech and right facial weakness/numbness. She was seen and examined. She did have right facial weakness and numbness on exam. No other apparant cranial nerves abnormalities. Strength 5/5 all extremities. She did not know the date but oriented to place. Denied blurred or double vision. Case d/w stroke neurologist, will order CT head no contrast and CT angio head and neck. Will call back with results. Critical care time 35 min
--- NOTE | 2020-08-10 19:11 | CT ---
EXAMINATION TYPE: CT brain wo con DATE OF EXAM: 08/10/2020 COMPARISON: 11/06/2015 HISTORY: Altered mental status. CT DLP: 1066.4 mGycm Automated exposure control for dose reduction was used. Exam performed without contrast. There is patchy hypodensity in the periventricular white matter. There is no mass effect nor midline shift. There is no evidence of intracranial hemorrhage. There is mild cerebral atrophy. The calvarium is intact. The skull base is intact. IMPRESSION: Cerebral atrophy and chronic small vessel ischemia. No significant change compared to old exam. No ac laura abnormality.
--- NOTE | 2020-08-10 19:35 | CT ---
EXAMINATION TYPE: CT angio head neck DATE OF EXAM: 08/10/2020 COMPARISON: None HISTORY: AMS, TIA CT DLP: 353.7 mGycm Automated exposure control for dose reduction was used. CONTRAST: Performed with IV Contrast, patient injected with 65 mL of Isovue 370. Images obtained from the aortic arch to the vertex of the brain with IV contrast and 3-D post process ed images. There is normal branching pattern of the great vessels on the aortic arch. There is bilateral arteria l flow in the subclavian arteries. There is arterial flow in the common internal and external carotid arteries bilaterally. There is some tortuosity of the carotid arteries. There is wide patency of the carotid artery bifurcations. There is minimal plaque formation. Stenosis is less than 10%. There is arterial flow in the vertebral arteries. There is arterial flow in the vertebrobasilar arter y system. There is no evidence of carotid or vertebral artery aneurysm or dissection. 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 There is arterial flow in the anterior middle and posterior cerebral arteries. I see no evidence of i ntracranial arterial stenosis. There is no evidence of neovascularity. There is no mass effect. There is normal contrast opacification of the venous sinuses. IMPRESSION: Negative CT angiogram of the neck. 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 No evidence of hemodynamic stenosis.
[2020-08-10] MEDS: ASPIRIN 325 MG TAB PO SCH (20:51)
[2020-08-10] MEDS: METOPROLOL TARTRATE 25 MG TAB PO SCH (20:52)
[2020-08-10] MEDS ORDERED: ATORVASTATIN 10 MG TAB PO SCH (21:00)
[2020-08-11] MEDS: HEPARIN SODIUM,PORCINE 5,000 UNIT/ML 1 ML VIAL SQ SCH ×4 (01:37→23:49)
[2020-08-11] MEDS: SODIUM CHLORIDE 0.9% 1,000 ML IV SCH ×2 (01:37→23:50)
--- NOTE | 2020-08-11 02:30 | P.EN ---
Patient seen and evaluated at the bedside at 7:10 pm. Case discussed in detail with Neuro-glory hole tender via [employer]. Neuro-glory hole tender evaluated the patient and recommended no tPA. The patient noted that her symptoms including facial droop, slurred speech, and facial paresthesias had resolved fully. Neurology consult was placed. Neuro-glory hole tender noted a BP goal of 160/90. Neurochecks ordered. General: Elderly pleasant female, non-toxic, in no acute distress, appears stated age, normal weight HEENT: NC/AT, anicteric sclerae, moist conjunctiva, no lid-lag, PERRLA Cardiovascular: S1/S2 wnl, no murmurs, rubs, or gallops Lungs: Clear to auscultation, normal respiratory effort, no accessory muscle use Abdominal: Soft, non-tender, non-distended, no guarding, rebound, or rigidity Skin: Warm, dry Extremities: No edema or contractures Psychiatric: Alert and oriented to person, place and time, appropriate affect Neuro: CN II-XII grossly intact, Strength 5/5 in all 4 extremities, Speech intact, Sensation to light touch grossly intact throughout
[2020-08-11] MEDS: LEVOTHYROXINE 25 MCG TAB PO SCH (05:34)
[2020-08-11] MEDS: METOPROLOL TARTRATE 25 MG TAB PO SCH (07:53)
[2020-08-11] MEDS: PANTOPRAZOLE 40 MG TABLET PO SCH (07:54)
[2020-08-11] MEDS: amLODIPine 5 MG TAB PO SCH ×2 (07:54→19:49)
[2020-08-11] MEDS: AZITHROMYCIN 500 MG TAB PO SCH (07:54)
[2020-08-11] MEDS: HYDROXYUREA 500 MG CAP PO SCH (07:55)
--- NOTE | 2020-08-11 10:39 | P.PN ---
Subjective Progress Note Date: 08/11/20 Patient is awake and alert today. She has no concerns or complaints this morning. She had a "stroke last night with an episode of slurred speech and facial paresthesia that resolved quickly. Telemetry neurology consulted and no TPA was recommended. Patient denies any numbness or tingling anywhere this morning. There is no facial droop or as symmetry. She does recall being confused yesterday but otherwise has no complaints. Objective - Vital Signs Vital signs: Vital Signs Temp 97.6 F 08/11/20 07:38 Pulse 84 08/11/20 07:38 Resp 18 08/11/20 07:38 BP 166/78 08/11/20 07:38 Pulse Ox 99 08/11/20 07:38 Intake & Output 08/10/20 08/11/20 08/11/20 18:59 06:59 18:59 Output Total 600 Balance -600 Output: Urine 600 Other: Voiding Method Toilet Toilet Bedside Commode Bedside Commode # Voids 2 5 # Bowel Movements 2 - Exam General: The patient is awake and alert, in no distress Eye: there is normal conjunctiva bilaterally. Neck: The neck is supple, there is no JVD. Cardiovascular: Normal S1-S2, no S3-S4, no murmurs. Respiratory: Lungs clear to auscultation bilaterally Gastrointestinal: Abdomen is soft, nontender Musculoskeletal: There is no pedal edema. Neurological:. Speech is normal. Skin: Skin is warm and dry - Labs CBC & Chem 7: 08/10/20 07:09 08/10/20 07:09 Labs: Abnormal Lab Results - Last 24 Hours (Table) 08/10/20 08/10/20 Range/Units 07:09 07:09 WBC 13.01 H (4.50-10.00) X 10*3/uL MCV 102.9 H (80.0-97.0) fL MCH 34.1 H (27.0-32.0) pg RDW 15.8 H (11.5-14.5) % MPV 12.4 H (9.5-12.2) fL Anion Gap 12.80 H (4.00-12.00) mmol/L Globulin 3.4 H (1.6-3.3) g/dL Albumin/Globulin Ratio 1.29 L (1.60-3.17) g/dL Triglycerides 166.0 H (0.0-149.0) mg/dL Cholesterol 206 H (0-200) mg/dL Microbiology - Last 24 Hours (Table) 08/09/20 16:07 Urine Culture - Final Urine,Voided Assessment and Plan Assessment: This is a 84-year-old female with past medical history noted below who presented to the emergency room with worsening confusion. Patient was found to have an underlying UTI and was admitted to the hospital for further management. On the evening of her first admission day, patient had a core stroke secondary to slurred speech, facial paresthesia, and facial droop. She is currently admitted to the hospital for further management of her medical problems noted below. 1. Suspected TIA, awaiting neurology evaluation. Computed tomography scan of the head and CT angiogram of the head and neck with no acute findings. 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 Continue full dose aspirin daily. I increased her home dose of Lipitor to 40 mg daily. May consider MRI of the brain awaiting urology evaluation. 2. Uncomplicated UTI, started on IV ceftriaxone day #2. Urine culture showed no growth today. We will finish 3 days course of antibiotic. 3. Acute Metabolic Encephalopathy on Presentation, Now Resolved 4. Sepsis on presentation without septic shock. Improved with IV fluid hydration and antibiotic. Lactic acid was normal. It was suspected pneumonia on presentation the appropriate sit on and was normal. I would discontinue azithromycin. Blood culture sent and pending. 5. Troponin elevation, most likely to non-thrombotic troponin leak given sepsis presentation. Repeat troponin was normal. Patient was seen and evaluated by cardiology. Echocardiogram ordered. 6. Hyperlipidemia, total cholesterol 206, LDL 123. Home dose of Lipitor increased to 40 mg daily 7. Chronic medical problems: Essential hypertension, hypothyroidism, and hyperlipidemia 8. DVT prophylaxis with subcu heparin Today, I reviewed her medication list and lab work results. Continue current management. Discontinue antibiotics tomorrow. Awaiting neurology evaluation. May consider MRI of the brain.
--- NOTE | 2020-08-11 10:47 | P.PN ---
Subjective Progress Note Date: 08/11/20 Principal diagnosis: Abnormal cardiac enzymes This is an 84-year-old female patient with hypertension and dyslipidemia who was admitted to the hospital with generalized weakness and body ache and also some change in mental status and we consulted to see her mainly because of abnormal cardiac enzymes. We advise conservative medical approach. The patient was seen today. She denies any symptoms of chest pain or chest discomfort. Hemodynamically she is a stable beside elevated blood pressure which I am going to increase the dose of metoprolol 200 mg by mouth twice a day. Otherwise she is on aspirin and also she is on intermediate to high intensity statin. An echocardiogram was performed and will follow-up on that. Objective - Vital Signs Vital signs: Vital Signs Temp 97.6 F 08/11/20 07:38 Pulse 84 08/11/20 07:38 Resp 18 08/11/20 07:38 BP 166/78 08/11/20 07:38 Pulse Ox 99 08/11/20 07:38 Intake & Output 08/10/20 08/11/20 08/11/20 18:59 06:59 18:59 Output Total 600 Balance -600 Output: Urine 600 Other: Voiding Method Toilet Toilet Bedside Commode Bedside Commode # Voids 2 5 # Bowel Movements 2 - Constitutional General appearance: Present: no acute distress - Respiratory Respiratory: bilateral: diminished - Cardiovascular Rhythm: regular Heart sounds: normal: S1, S2 Abnormal Heart Sounds: Present: systolic murmur - Labs CBC & Chem 7: 08/10/20 07:09 08/10/20 07:09 Labs: Abnormal Lab Results - Last 24 Hours (Table) 08/10/20 08/10/20 Range/Units 07:09 07:09 WBC 13.01 H (4.50-10.00) X 10*3/uL MCV 102.9 H (80.0-97.0) fL MCH 34.1 H (27.0-32.0) pg RDW 15.8 H (11.5-14.5) % MPV 12.4 H (9.5-12.2) fL Anion Gap 12.80 H (4.00-12.00) mmol/L Globulin 3.4 H (1.6-3.3) g/dL Albumin/Globulin Ratio 1.29 L (1.60-3.17) g/dL Triglycerides 166.0 H (0.0-149.0) mg/dL Cholesterol 206 H (0-200) mg/dL Microbiology - Last 24 Hours (Table) 08/09/20 16:07 Urine Culture - Final Urine,Voided Assessment and Plan Assessment: Assessment #1 generalized weakness #2 possible UTI #3 mildly abnormal cardiac enzymes #4 multiple comorbid conditions Plan #1 continue the aspirin and statin #2 follow-up on the echocardiogram #3 increase the dose of metoprolol
--- NOTE | 2020-08-11 11:00 | ECHOF ---
Referral Reason:LV function MEASUREMENTS -------- HEIGHT: 170.2 cm WEIGHT: 63.5 kg BP: RVIDd: 3.7 cm (< 3.3) IVSd: 1.0 cm (0.6 - 1.1) LVIDd: 3.7 cm (3.9 - 5.3) LVPWd: 1.2 cm (0.6 - 1.1) IVSs: 1.2 cm LVIDs: 3.0 cm LVPWs: 1.3 cm LA Diam: 5.1 cm (2.7 - 3.8) MV EXCURSION: 14.100 mm (> 18.000) MV EF SLOPE: 59 mm/s (70 - 150) EPSS: 0.3 cm MV E Ganesh: 1.12 m/s MV DecT: 185 ms MV A Ganesh: 1.52 m/s MV E/A Ratio: 0.74 RAP: 5.00 mmHg RVSP: 44.61 mmHg FINDINGS -------- BBB This was a technically good study. The left ventricular size is normal. There is mild concentric left ventricular hypertrophy. Overa ll left ventricular systolic function is low-normal with, an EF between 50 - 55 %. The right ventricle is mildly enlarged. The left atrium is moderately dilated. The right atrial size is normal. There is mild aortic valve sclerosis. There is no evidence of aortic regurgitation. Mild mitral annular calcification present. Moderate mitral regurgitation is present. Mild tricuspid regurgitation present. There is mild pulmonary hypertension. The right ventricular systolic pressure, as measured by Doppler, is 44.61mmHg. Trace/mild (physiologic) pulmonic regurgitation. The aortic root size is normal. There is no pericardial effusion. CONCLUSIONS -------- 1. The left ventricular size is normal. 2. There is mild concentric left ventricular hypertrophy. 3. Overall left ventricular systolic function is low-normal with, an EF between 50 - 55 %. 4. The right ventricle is mildly enlarged. 5. The left atrium is moderately dilated. 6. The right atrial size is normal. 7. There is mild aortic valve sclerosis. 8. Mild mitral annular calcification present. 9. Moderate mitral regurgitation is present. 10. Mild tricuspid regurgitation present. 11. There is mild pulmonary hypertension. 12. The right ventricular systolic pressure, as measured by Doppler, is 44.61mmHg. 13. Trace/mild (physiologic) pulmonic regurgitation. 14. The aortic root size is normal. 15. There is no pericardial effusion. MOBILE UI DESIGNER: Katherin Pablo RDCS
[2020-08-11 11:15] LABS: Basophils # (A) 0.11 X 10*3/uL (0.00-0.10); Basophils % (A) 0.8 %; Eosinophils % (A) 2.2 %; HCT 40.3 % (37.2-46.3); HGB 13.3 g/dL (12.0-15.0); Lymphocytes # (A) 4.74 X 10*3/uL (0.90-5.00); Lymphocytes % (A) 35.1 %; MCH 34.2 pg (27.0-32.0); MCV 103.6 fL (80.0-97.0); Mean Platelet Volume 12.2 fL (9.5-12.2); Monocytes # (A) 0.62 X 10*3/uL (0.20-1.00); Monocytes % (A) 4.6 %; Neutrophils # (A) 7.68 X 10*3/uL (1.80-7.70); Neutrophils % (A) 56.9 %; Platelet Count 279 X 10*3/uL (140-440); RBC 3.89 X 10*6/uL (4.10-5.20); RDW 15.9 % (11.5-14.5); WBC 13.51 X 10*3/uL (4.50-10.00)
[2020-08-11 13:06] LABS: African American GFR (CKD) 96.3 (60.0-200.0); Anion Gap 11.5 mmol/L (4.00-12.00); BUN/Creat Ratio 16.67 Ratio (12.00-20.00); Calcium 9.3 mg/dL (8.7-10.3); Carbon Dioxide 23.5 mmol/L (21.6-31.8); Non-African American GFR(CKD) 83.1 (60.0-200.0); Potassium 4.1 mmol/L (3.5-5.5)
--- NOTE | 2020-08-11 13:59 | P.CNNES ---
History of Present Illness Consult date: 08/11/20 Requesting physician: Meg Thorne Reason for Consult: episode of slurred speech concern for transient ischemic attack History of Present Illness: This is an 84-year-old woman with medical history of hypertension, h yperlipidemia, hypothyroidism who presented emergency department on 08/09/2020 by her granddaughter for confusion. Some of the history is obtained from medical records since patient unable to provide all the history. Neurology team is consulted for possible transient ischemic attack. During nighttime of 08/10/2020 she had an episode of left facial droop, slurred speech and facial paresthesia (that occureed between 6-7pm) the resolved quickly. Stroke code was activated and the patient was evaluated by by stroke team over Tele-robot. Patient had the CT of the head is reported as cerebral atrophy and chronic small vessel ischemia. No significant change compared to old exam. No acute abno rmality. CTA of the head and neck is reported as negative CT angiography of the neck. 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 No evidence of hemodynamic stenosis. No TPA was given since her symptoms resolved. I will see if the patient had the blood glucose checked or not during that event. Seems that the patient's home dose is aspirin 325mg not on a daily basis. She denies history of stroke or TIA to her knowledge. She uses a walker for years. It seems that the patient after receiving her second dose of codeine vaccine she'll feel like herself. She's been having the difficulty urinating and overall body aches. Chest x-ray revealed large hiatal hernia and interstitial lung density increased from prior. Was felt the patient has sepsis and likely due to suspected pneumonia. The patient had the troponin elevation and it was felt like most likely the 2 non-thrombotic troponin leak given the sepsis presentation. Also was felt that the patient had uncomplicated urinary tract infection and a component of acute metabolic encephalopathy on presentation which improved. During her hospital stay her other workup consisted of 2-D echo which is reported as mild concentric left ventricular hypertrophy. Overall left ventricular systolic function is low normal with ejection fraction of 50-55%. Left atrium is moderately dilated. On presentation the patient is initial white blood cell is 12.6 and currently is 13.5. Her MCV is 106. Her initial sodium is 132 which is mildly low and improved to 135 now is 133 Initial serum glucose is 112. AST is 46 and the ALTs 14. Review of Systems Review of system: The 12 point system was reviewed and apparent positive and negative per HPI. Past Medical History Past Medical History: Blood Disorder, Cancer, Hyperlipidemia, Hypertension, Thyroid Disorder Additional Past Medical History / Comment(s): leukemia History of Any Multi-Drug Resistant Organisms: None Reported Past Surgical History: Joint Replacement Additional Past Surgical History / Comment(s): left knee replacement, ovarian cysts removed, left cataracts Past Anesthesia/Blood Transfusion Reactions: No Reported Reaction Past Psychological History: No Psychological Hx Reported Smoking Status: Never smoker Past Alcohol Use History: None Reported Past Drug Use History: None Reported Medications and Allergies Home Medications Medication Instructions Recorded Confirmed Type Anagrelide HCl [Agrylin] 0.5 mg PO BID 11/06/15 08/09/20 History Hydroxyurea [Hydrea] 500 mg PO SUTUTHSA 11/06/15 08/09/20 History Levothyroxine Sodium [Synthroid] 25 mcg PO DAILY 11/06/15 08/09/20 History Lovastatin [Mevacor] 20 mg PO HS 11/06/15 08/09/20 History amLODIPine BESYLATE [Norvasc] 5 mg PO DAILY 11/06/15 08/09/20 History Hydroxyurea 1,000 mg PO MOWEFR 04/18/16 08/09/20 History Omeprazole 20 mg PO DAILY 04/18/16 08/09/20 History Metoprolol Tartrate [Lopressor] 75 mg PO DAILY 09/03/17 08/09/20 History Aspirin EC [Ecotrin] 325 mg PO HS 08/09/20 08/09/20 History Calcium W/Vitamin D3(Unknown Dose) 1 tab PO DAILY 08/09/20 08/09/20 History Furosemide [Lasix] 20 mg PO DAILY 08/09/20 08/09/20 History Vitamin A Red 1 cap PO BID 08/09/20 08/09/20 History Vitamin B Complex 1 cap PO DAILY 08/09/20 08/09/20 History Allergies Allergy/AdvReac Type Severity Reaction Status Date / Time Sulfa (Sulfonamide Allergy Rash/Hives Verified 08/09/20 18:24 Antibiotics) Physical Examination - Vital Signs Vital Signs: Vital Signs Temp Pulse Resp BP Pulse Ox 08/11/20 07:38 97.6 F 84 18 166/78 99 08/11/20 02:22 98.5 F 75 15 130/94 99 08/10/20 19:59 97.7 F 112 H 15 163/91 99 08/10/20 19:03 105 H 16 164/97 99 08/10/20 16:52 97.6 F 95 16 171/80 96 Intake and Output 08/10/20 08/11/20 08/11/20 22:59 06:59 14:59 Output Total 600 Balance -600 Output: Urine 600 Other: Voiding Method Toilet Bedside Commode # Voids 2 5 GENERAL: The patient is lying in bed and is not in acute distress. CHEST: The heart rate is regular rate rhythm. No murmurs to auscultation. No carotid bruit bilaterally. LUNG: Clear to auscultation bilaterally no wheezing noted throughout. Not labored breathing. ABDOMEN/GI: Bowel sounds present in all 4 quadrants. No tenderness to palpation throughout. NEUROLOGICAL: Higher mental function: The patient is awake, alert, oriented to self, place and time. Patient is following commands. No aphasia and no neglect. Cranial nerves: The pupils are round, equal and reactive to light and accommodat ion. Visual bee are full to confrontation throughout. Extraocular movement is intact no nystagmus is noted. Facial sensation is normal to touch throughout. The facial strength is normal throughout. Hearing is normal bilaterally to hand rub. Tongue is midline and moved [id number] without any difficulty. No dysarthria is noted. Shoulder shrug is normal bilaterally. Motor: Gait: walks with walker and not leaning towards one side or the other. The strength is 5 over 5 throughout. Normal tone and bulk. Cerebellum: Normal finger to nose heel to floyd bilaterally. Sensation: Sensation is normal to touch throughout. Reflexes (right/left): 2+ in upper extremities and 1+ in lower extremities Plantars are downgoing bilaterally. Results - Laboratory Findings CBC and BMP: 08/11/20 08:08 08/11/20 08:08 Abnormal Lab Findings: Abnormal Labs 08/09/20 08/09/20 08/09/20 15:51 15:51 16:07 WBC 12.6 H RBC MCV 106.2 H MCH RDW 15.7 H MPV Immature Gran # Lymphocytes # 5.1 H Basophils # D-Dimer Sodium 132 L Potassium 6.0 H Chloride 95 L Anion Gap Glucose 112 H Magnesium 1.4 L AST 46 H Troponin I Total Protein 9.0 H Albumin 5.2 H Globulin Albumin/Globulin Ratio Triglycerides Cholesterol Urine Protein 1+ H Urine Ketones 1+ H Ur Leukocyte Esterase Small H Urine WBC 12 H 08/09/20 08/09/20 08/10/20 17:58 19:30 07:09 WBC RBC MCV MCH RDW MPV Immature Gran # Lymphocytes # Basophils # D-Dimer 0.74 H Sodium Potassium Chloride Anion Gap 12.80 H Glucose Magnesium AST Troponin I 0.036 H* Total Protein Albumin Globulin 3.4 H Albumin/Globulin Ratio 1.29 L Triglycerides 166.0 H Cholesterol 206 H Urine Protein Urine Ketones Ur Leukocyte Esterase Urine WBC 08/10/20 08/11/20 07:09 08:08 WBC 13.01 H 13.51 H RBC 3.89 L MCV 102.9 H 103.6 H MCH 34.1 H 34.2 H RDW 15.8 H 15.9 H MPV 12.4 H Immature Gran # 0.06 H Lymphocytes # Basophils # 0.11 H D-Dimer Sodium Potassium Chloride Anion Gap Glucose Magnesium AST Troponin I Total Protein Albumin Globulin Albumin/Globulin Ratio Triglycerides Cholesterol Urine Protein Urine Ketones Ur Leukocyte Esterase Urine WBC Assessment and Plan Assessment: This is an 84-year-old woman with multiple medical problem who had an episode of facial droop, slurred speech and facial paresthesia during the nighttime of 08/10/2020. Episode was brief. No IV tpa since resolved. Episode of slurred speech, left facial paresthesia and facial droop likely due to transient ischemic attack Sepsis due to the pneumonia and component due to uncomplicated urinary tract infection Hypertension Hyperlipidemia Hypertelorism Plan: Patient had the CT of the head is reported as cerebral atrophy and chronic small vessel ischemia. No significant change compared to old exam. No acute abnormality. CTA of the head and neck is reported as negative CT angiography of the neck. 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 No evidence of hemodynamic stenosis. I ordered MRI of the brain. Regarding the patient the basilar tip aneurysm patient needs to follow-up with the neuro intervention for further work-up within 1 weeks as outpatient. Patient had a recent 2-D echo so there is no reason to repeat that the 2-D echo Currently the patient is onaspirin 325 mg daily (at home was on sporadic ASA 325mg) and Lipitor 40 mg at. I will start also the patient on Plavix 75 mg for now for 21 days then discontinue after 21 days. I consulted PT OT and TELEVISION PRODUCTION ASSISTANT Continue cardiac monitoring Continue every 4 hour neuro checks I ordered TSH, vitamin B12 level. I ordered lipid panel. We'll defer the rest of the medical management to the primary team. The plan is discussed with the patient and her nurse. Thank you for the consultation. Ravinder Gallardo MD Neuro-Hospitalist Time with Patient: Greater than 30
[2020-08-11] MEDS: METOPROLOL TARTRATE 50 MG TAB PO SCH (19:48)
[2020-08-11] MEDS: ATORVASTATIN 40 MG TAB PO SCH (19:49)
[2020-08-11] MEDS: ASPIRIN 325 MG TAB PO SCH (19:49)
[2020-08-11 23:50] LABS: Chol/HDL Ratio 3.79; LDL Cholesterol,Calculated 123.2 mg/dL (0.0-131.0); VLDL Calculation 32.8 mg/dL (5.00-40.00)
[2020-08-12] MEDS: LEVOTHYROXINE 25 MCG TAB PO SCH (05:36)
[2020-08-12] MEDS: PANTOPRAZOLE 40 MG TABLET PO SCH (08:15)
[2020-08-12] MEDS: HEPARIN SODIUM,PORCINE 5,000 UNIT/ML 1 ML VIAL SQ SCH ×3 (08:15→23:50)
[2020-08-12] MEDS: CLOPIDOGREL 75 MG TAB PO SCH (08:15)
[2020-08-12] MEDS: METOPROLOL TARTRATE 50 MG TAB PO SCH ×2 (08:15→20:31)
[2020-08-12] MEDS: amLODIPine 5 MG TAB PO SCH ×2 (08:15→20:31)
[2020-08-12] MEDS: HYDROXYUREA 500 MG CAP PO SCH (08:16)
--- NOTE | 2020-08-12 10:46 | P.PN ---
Progress Note - Text Progress Note Date: 08/12/20 This is a very pleasant 84-year-old female patient was hypertension and dyslipidemia who was admitted to the hospital with generalized weakness. We consulted to see the patient mainly because of abnormal cardiac enzymes. We advise maximize medical treatment giving her age and giving the absence of any chest pain or chest discomfort. Yesterday I did increase the dose of metoprolol for better heart rate and blood pressure control. The patient heart rate and blood pressure has been stable. From a cardiovascular standpoint of view, we'll continue the current medical regimen and follow-up with the patient on when necessary case
--- NOTE | 2020-08-12 11:17 | MR ---
EXAMINATION TYPE: MR brain wo con DATE OF EXAM: 08/12/2020 COMPARISON: CT brain 08/10/2020 HISTORY: Transient left facial droop and slurred speech CONTRAST: Performed utilizing 0 mL intravenous Gadavist gadolinium contrast. TECHNIQUE: Multiplanar, multiecho imaging on a 3.0 Shyanne magnet is performed through the brain. Stud y is not performed within 24 hours of arrival to the hospital. The craniovertebral junction is normal. The pituitary is normal. Diffusion-weighted imaging is performed. No abnormal hyperintensity is present to suggest an acute i ntracranial infarct or acute ischemic change. Periventricular white matter hyperintensity on T2 and inversion recovery weighted sequences can be co mpatible with chronic white matter ischemic changes. There are some scattered subcortical white matte r changes as well. Ventricles and sulci are mildly prominent for the patient age. IMPRESSIONS: 1. Scattered deep white matter changes, likely on the basis of chronic white matter ischemic change.
--- NOTE | 2020-08-12 16:05 | P.PN ---
Subjective Progress Note Date: 08/12/20 Patient was seen at bedside and she stated that she has not had any further episode of slurring the speech. She feels back to baseline and denies any focal weakness or numbness. Her daughter was at bedside and agrees that she has no further episodes. Objective - Vital Signs Vital signs: Vital Signs Temp 98.9 F 08/12/20 14:00 Pulse 82 08/12/20 14:00 Resp 18 08/12/20 14:00 BP 118/69 08/12/20 14:00 Pulse Ox 98 08/12/20 14:00 Intake & Output 08/11/20 08/12/20 08/12/20 18:59 06:59 18:59 Intake Total 200 Balance 200 Intake: IV 200 Sodium Chloride 0.9% 1, 150 000 ml @ 50 mls/hr IV . Q20H DAJA Rx#:[id number] cefTRIAXone 1 gm In 50 Sodium Chloride 0.9% 50 ml @ 100 mls/hr IVPB Q24HR DAJA Rx#:[id number] Other: Voiding Method Toilet Bedside Commode # Voids 6 3 - Exam GENERAL: The patient is lying in bed and is not in acute distress. NEUROLOGICAL: Higher mental function: The patient is awake, alert, oriented to self, place and time. Patient is following commands. No aphasia and no neglect. Cranial nerves: The pupils are round, equal and reactive to light and accommodation. Visual bee are full to confrontation throughout. Extraocular movement is intact no nystagmus is noted. Facial sensation is normal to touch throughout. The facial strength is normal throughout. Hearing is mildly to moderately decreased to hand rub. Tongue is midline and moved [id number] without any difficulty. No dysarthria is noted. Shoulder shrug is normal bilaterally. Motor: Gait: is deferred. The strength is 5 over 5 throughout. Normal tone and bulk. Cerebellum: Normal finger to nose heel to floyd bilaterally. Sensation: Sensation is normal to touch throughout. Reflexes (right/left): 2+ in upper extremities and 1+ in lower extremities Plantars are downgoing bilaterally. - Labs CBC & Chem 7: 08/11/20 08:08 08/11/20 08:08 Labs: Abnormal Lab Results - Last 24 Hours (Table) 08/11/20 Range/Units 08:08 Triglycerides 164.0 H (0.0-149.0) mg/dL Cholesterol 212 H (0-200) mg/dL Microbiology - Last 24 Hours (Table) 08/10/20 09:08 Blood Culture - Preliminary Blood No Growth after 48 hours Assessment and Plan Assessment: This is an 84-year-old woman with multiple medical problem who had an episode of facial droop, slurred speech and facial paresthesia during the nighttime of 08/10/2020. Episode was brief. No IV tpa since resolved. Episode of slurred speech, left facial paresthesia and facial droop likely due to transient ischemic attack Sepsis due to the pneumonia and component due to uncomplicated urinary tract infection Hypertension Hyperlipidemia Hypertelorism Plan: Patient had the CT of the head is reported as cerebral atrophy and chronic small vessel ischemia. No significant change compared to old exam. No acute abnormality. CTA of the head and neck is reported as negative CT angiography of the neck. 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 No evidence of hemodynamic stenosis. MRI of the brain: Was reported as scattered deep white matter changes, likely on the basis of chronic white matter ischemic change. I personally reviewed it and there is no acute ischemia. Regarding the patient the basilar tip aneurysm patient needs to follow-up with the neuro intervention for further work-up within 1 weeks as outpatient. Patient had a recent 2-D echo so there is no reason to repeat that the 2-D echo Currently the patient is on aspirin 325 mg daily (at home was on sporadic ASA 325mg) and Lipitor 40 mg at. Continue Plavix 75 mg for now for 21 days then discontinue after 21 days (patient was notified is she has increased bleeding risk then just to be on ASA 81mg from neurology stand point). PT OT and CENTRIFUGAL WAX MOLDER are consulted Continue cardiac monitoring Continue every 4 hour neuro checks TSH: 2.26 (normal), vitamin B12 level: 894 (normal) nad RB folate: 542 (normal). lipid panel: Triglyceride 164, cholesterol 212, LDLs 123, HDL is 56. We'll defer the rest of the medical management to the primary team. The plan is discussed with the patient and her nurse. Upon discharge recommend patient to follow-up with a neurologist within 2-3 weeks as an outpatient. The plan is discussed with the patient and her daughter who is at bedside. There is no further neurological workup needed this time. Will sign off. Please reconsult if needed. Ravinder Gallardo MD Neuro-Hospitalist Time with Patient: Less than 30
--- NOTE | 2020-08-12 17:45 | P.PN ---
<Robert Willis - Last Filed: 08/12/20 17:31> Subjective Progress Note Date: 08/12/20 Principal diagnosis: TIA Hospital course: Patient is an 84-year-old female with a past medical history of hypertension, hyperlipidemia, and hypothyroidism. She presented to emergency department with a chief complaint of confusion. Patient was found to be positive for signs and symptoms of sepsis with a mild UTI and admitted under our services. During stay on the night of 08/11/20 patient had an episode of slurred speech and facial paresthesia concerning for TIA versus CVA. These symptoms lasted only momentarily and clinically resolving with patient back to baseline levels. Physical exam: Patient was seen and fully evaluated at the bedside. Patient was sitting up in chair this morning. She reports feeling great this morning and denies having any complaints including headache, lightheadedness, dizziness, changes in her vision or hearing, changes in her difficulties with her speech, dysphasia, chest pain or palpitations, shortness of breath, or experiencing any weakness/numbness/tingling in extremities. Patient is admitted to have MRI at 10:30 AM this morning. General: non toxic, no distress, appears at stated age Derm: warm, dry Head: atraumatic, normocephalic, symmetric Eyes: EOMI, no lid lag, anicteric sclera Mouth: no lip lesion, mucus membranes moist Cardiovascular: S1S2 reg, no murmur, positive posterior tibial pulses bilaterally, cap refill less than 2 seconds. Lungs: CTA bilateral, no rhonchi, no rales , no accessory muscle use Abdominal: soft, nontender to palpation, no guarding, no appreciable organomegaly Ext: no gross muscle atrophy, no edema, no contractures Neuro: Speech clear. GCS 15. CN II-XI grossly intact, no focal neuro deficits Psych: Alert, oriented, appropriate affect Plan of care: TIA -CT head showing cerebral atrophy and chronic small vessel ischemia. No significant changes when compared to prior examination. Negative for acute intercranial process. -Carotid Doppler revealing mild degree of grayscale atherosmatous plaquing with no sonographically evident hemodynamically significant stenosis within either visualized carotid arterial system. -Echocardiogram revealing ejection fraction than 50 and 55% with mild concentric left ventricular hypertrophy with mild aortic stenosis. -Neurology following, appreciate further recommendations. -Neuro checks Uncomplicated UTI -Urine culture showing no growth after 18 hours. -Continue Rocephin 1 g every 24 hours. Acute metabolic encephalopathy on presentation, resolved Sepsis on presentation secondary to uncomplicated UTI vs pneumonia, resolved. Elevated troponin most likely secondary to non-thrombotic troponin leak secondary to sepsis. -EKG revealing sinus tachycardia with a left bundle branch block. No previous EKG available for comparison. -Echocardiogram revealing a preserved ejection fraction between 50 and 55% with mild concentric left ventricular hypertrophy and mild aortic stenosis. -Cardiology following, appreciate further recommendations. Hypertension -Monitor vital signs and continue daily medication management. Hyperlipidemia -Lipid profile revealing total cholesterol 206 and LDL of 123. -Lipitor was increased to 40 mg daily. Hypothyroidism -Continue the levothyroxine at 25 g daily. CODE STATUS: DO NOT RESUSCITATE/DO NOT INTUBATE DVT prophylaxis: Heparin Discussed with: Patient and RN Anticipated discharge date: 1-2 days pending MRI to be completed this morning. Anticipated discharge place: Home with home care A total of 45 minutes was spent on the care of this complex patient more than 50% of the time was spent in counseling and care coordination. Objective - Vital Signs Vital signs: Vital Signs Temp 97.9 F 08/12/20 07:19 Pulse 80 08/12/20 07:19 Resp 20 08/12/20 07:19 BP 161/81 08/12/20 07:19 Pulse Ox 98 08/12/20 07:19 Intake & Output 08/11/20 08/12/20 08/12/20 18:59 06:59 18:59 Other: Voiding Method Toilet Bedside Commode # Voids 6 3 - Labs CBC & Chem 7: 08/11/20 08:08 08/11/20 08:08 Labs: Abnormal Lab Results - Last 24 Hours (Table) 08/11/20 Range/Units 08:08 Triglycerides 164.0 H (0.0-149.0) mg/dL Cholesterol 212 H (0-200) mg/dL Microbiology - Last 24 Hours (Table) 08/10/20 09:08 Blood Culture - Preliminary Blood No Growth after 48 hours <Brie Cifuentes - Last Filed: 08/13/20 06:15> Objective - Vital Signs Vital signs: Vital Signs Temp 97.6 F 08/13/20 03:05 Pulse 80 08/13/20 03:05 Resp 16 08/13/20 03:05 BP 145/75 08/13/20 03:05 Pulse Ox 97 08/13/20 03:05 Intake & Output 08/12/20 08/12/20 08/13/20 06:59 18:59 06:59 Intake Total 200 300 Balance 200 300 Intake: IV 200 Sodium Chloride 0.9% 1, 150 000 ml @ 50 mls/hr IV . Q20H DAJA Rx#:[id number] cefTRIAXone 1 gm In 50 Sodium Chloride 0.9% 50 ml @ 100 mls/hr IVPB Q24HR DAJA Rx#:[id number] Oral 300 Other: # Voids 3 2 - Labs CBC & Chem 7: 08/12/20 06:26 08/12/20 06:26 Labs: Abnormal Lab Results - Last 24 Hours (Table) 08/12/20 08/12/20 Range/Units 06:26 06:26 WBC 10.87 H (4.50-10.00) X 10*3/uL RBC 3.54 L (4.10-5.20) X 10*6/uL MCV 109.9 H (80.0-97.0) fL MCH 33.9 H (27.0-32.0) pg MCHC 30.8 L (32.0-37.0) g/dL RDW 16.5 H (11.5-14.5) % Immature Gran # 0.06 H (0.00-0.04) X 10*3/uL Eosinophils # 0.46 H (0.04-0.35) X 10*3/uL Carbon Dioxide 20.2 L (21.6-31.8) mmol/L Anion Gap 14.80 H (4.00-12.00) mmol/L Microbiology - Last 24 Hours (Table) 08/10/20 09:08 Blood Culture - Preliminary Blood No Growth after 48 hours Assessment and Plan Assessment: Patient seen and examined independently. Patient was also seen by Robert Willis NP and case was discussed. I am in agreement with subjective, physical exam, assessment and plan as written above and amended below. Patient seen and examined at bedside 08/12 at approximately 1400. She has no complaints currently. We discussed the findings of her MRI. No questions. General: non toxic, no distress, appears at stated age Derm: warm, dry Head: atraumatic, normocephalic, symmetric Eyes: EOMI, no lid lag, anicteric sclera Mouth: no lip lesion, mucus membranes moist Cardiovascular: S1S2 reg, no murmur, positive posterior tibial pulse bilateral, Lungs: CTA bilateral, no rhonchi, no rales , no accessory muscle use Psych: Alert, oriented, appropriate affect TIA - neuro recs plavix X 21 days with ASA 325 and then stop -Results of MRI reviewed with patient.
[2020-08-12 17:57] LABS: Basophils # (A) 0.09 X 10*3/uL (0.00-0.10); Basophils % (A) 0.8 %; Eosinophils # (A) 0.46 X 10*3/uL (0.04-0.35); Eosinophils % (A) 4.2 %; HCT 38.9 % (37.2-46.3); Lymphocytes # (A) 3.76 X 10*3/uL (0.90-5.00); Lymphocytes % (A) 34.6 %; MCH 33.9 pg (27.0-32.0); MCHC 30.8 g/dL (32.0-37.0); MCV 109.9 fL (80.0-97.0); Mean Platelet Volume 12.2 fL (9.5-12.2); Monocytes # (A) 0.71 X 10*3/uL (0.20-1.00); Monocytes % (A) 6.5 %; Neutrophils # (A) 5.79 X 10*3/uL (1.80-7.70); Neutrophils % (A) 53.3 %; Platelet Count 225 X 10*3/uL (140-440); RBC 3.54 X 10*6/uL (4.10-5.20); RDW 16.5 % (11.5-14.5); WBC 10.87 X 10*3/uL (4.50-10.00)
[2020-08-12] MEDS: ASPIRIN 325 MG TAB PO SCH (20:31)
[2020-08-12] MEDS: ATORVASTATIN 40 MG TAB PO SCH (20:31)
[2020-08-13 00:08] LABS: African American GFR (CKD) 91.6 (60.0-200.0); Anion Gap 14.8 mmol/L (4.00-12.00); BUN/Creat Ratio 17.14 Ratio (12.00-20.00); Calcium 9.3 mg/dL (8.7-10.3); Carbon Dioxide 20.2 mmol/L (21.6-31.8); Potassium 4.5 mmol/L (3.5-5.5)
[2020-08-13 03:39] VITALS: RESP 16
[2020-08-13] MEDS: LEVOTHYROXINE 25 MCG TAB PO SCH (05:55)
[2020-08-13 08:10] VITALS: TEMP 98
[2020-08-13] MEDS: HEPARIN SODIUM,PORCINE 5,000 UNIT/ML 1 ML VIAL SQ SCH (08:21)
[2020-08-13] MEDS: METOPROLOL TARTRATE 50 MG TAB PO SCH (08:21)
[2020-08-13] MEDS: PANTOPRAZOLE 40 MG TABLET PO SCH (08:22)
[2020-08-13] MEDS: CLOPIDOGREL 75 MG TAB PO SCH (08:23)
[2020-08-13] MEDS: amLODIPine 5 MG TAB PO SCH (08:23)
[2020-08-13] MEDS: HYDROXYUREA 500 MG CAP PO SCH (08:24)
[2020-08-13] MEDS ORDERED: ACETAMINOPHEN TAB 325 MG TAB PO PRN (09:34)
[2020-08-13 11:52] LABS: Basophils # (A) 0.07 X 10*3/uL (0.00-0.10); Basophils % (A) 0.6 %; Eosinophils # (A) 0.61 X 10*3/uL (0.04-0.35); HCT 39.2 % (37.2-46.3); HGB 12.8 g/dL (12.0-15.0); Lymphocytes # (A) 4.01 X 10*3/uL (0.90-5.00); Lymphocytes % (A) 32.9 %; MCH 34.3 pg (27.0-32.0); MCHC 32.7 g/dL (32.0-37.0); MCV 105.1 fL (80.0-97.0); Mean Platelet Volume 12.5 fL (9.5-12.2); Monocytes # (A) 0.74 X 10*3/uL (0.20-1.00); Monocytes % (A) 6.1 %; Neutrophils # (A) 6.68 X 10*3/uL (1.80-7.70); Neutrophils % (A) 54.9 %; Platelet Count 394 X 10*3/uL (140-440); RBC 3.73 X 10*6/uL (4.10-5.20); RDW 16.1 % (11.5-14.5); WBC 12.17 X 10*3/uL (4.50-10.00)
[2020-08-13 13:03] LABS: African American GFR (CKD) 91.6 (60.0-200.0); Anion Gap 9.5 mmol/L (4.00-12.00); BUN/Creat Ratio 18.57 Ratio (12.00-20.00); Calcium 9.8 mg/dL (8.7-10.3); Carbon Dioxide 26.5 mmol/L (21.6-31.8); Potassium 4.9 mmol/L (3.5-5.5)
[2020-08-13 14:26] VITALS: BP 142/93; PULSE 83
--- NOTE | 2020-08-13 15:02 | P.DS ---
<Robert Willis - Last Filed: 08/13/20 14:45> Providers Expected date of discharge: 08/13/20 Hospital Course: Discharge Diagnosis: TIA Uncomplicated UTI Acute metabolic encephalopathy on presentation, resolved Sepsis on presentation secondary to uncomplicated UTI vs pneumonia, resolved. Elevated troponin most likely secondary to non-thrombotic troponin leak secondary to sepsis. Hypertension Hyperlipidemia Hypothyroidism Hospital Course: Patient is an 84-year-old female with a past medical history of hypertension, hyperlipidemia, and hypothyroidism. She presented to emergency department with a chief complaint of confusion. Patient was found to be positive for signs and symptoms of sepsis with a mild UTI and admitted under our services. During stay on the night of 08/11/20 patient had an episode of slurred speech and facial paresthesia concerning for TIA versus CVA. These symptoms lasted only momentarily and clinically resolving with patient back to baseline levels. Neurology was consulted. CT head was completed showing cerebral atrophy and chronic small vessel ischemia, no significant changes when compared to prior ex amination, and negative for acute intercranial process. Carotid Dopplers revealed mild degree of grayscale atherosmatous plaquing with no sonographically evident hemodynamically significant stenosis within either visualized carotid arterial system. Echocardiogram revealed ejection fraction than 50 and 55% with mild concentric left ventricular hypertrophy with mild aortic stenosis. MRI completed showing scattered deep white matter changes, chronic white matter ischemic change, negative for acute intercranial process. Lipid profile also completed revealing total cholesterol 206 and LDL of 123. Lipitor was increased to 40 mg daily. Neurology evaluated and cleared patient from neurology standpoint instructing for patient to continue daily aspirin regimen at 325 mg daily and placed patient on Plavix 75 mg daily for 21 days and then stop the Plavix and only continue aspirin. Urine culture with negative results. Patient also medically clear for discharge home at this time after receiving a 4 day course of Rocephin and being discharged home on cefpodoxime 100 mg twice daily for 3 more days to complete treatment for her uncomplicated UTI. Patient being discharged home with [facility]. Physical exam: Patient was seen and fully evaluated at the bedside. Patient was sitting up in bed this morning. She reports that she continues to feel great this morning and is ready to go home. We discussed home health services and pt in agreement with receiving. She denied having any complaints including headache, lightheadedness, dizziness, changes in her vision or hearing, changes in her difficulties with her speech, dysphasia, chest pain or palpitations, shortness of breath, or experiencing any weakness/numbness/tingling in extremities. General: non toxic, no distress, appears at stated age Derm: warm, dry Head: atraumatic, normocephalic, symmetric Eyes: EOMI, no lid lag, anicteric sclera Mouth: no lip lesion, mucus membranes moist Cardiovascular: S1S2 reg, murmur present, positive posterior tibial pulses bilaterally, cap refill less than 2 seconds. Lungs: Respirations even, regular, and unlabored on room air. Lungs CTA bilaterally, no wheezes, rhonchi, rales, or crackles present. No accessory muscle use. Abdominal: soft, nontender to palpation, no guarding, no appreciable organomegaly Ext: no gross muscle atrophy, no edema, no contractures Neuro: Speech clear. GCS 15. CN II-XI grossly intact, no focal neuro deficits. Movement and sensation of upper and lower extremities intact. Strength moderate. Psych: Alert, oriented, appropriate affect A total of 45 minutes of time were spent preparing this complex discharge summary. Patient Condition at Discharge: Fair Plan - Discharge Summary Discharge Rx Participant: Yes New Discharge Prescriptions: New Atorvastatin [Lipitor] 40 mg PO HS 30 Days #30 tab Clopidogrel [Plavix] 75 mg PO DAILY 21 Days #30 tab Cefpodoxime Proxetil [Vantin] 100 mg PO Q12HR 3 Days #6 tab Continue amLODIPine BESYLATE [Norvasc] 5 mg PO DAILY Hydroxyurea [Hydrea] 500 mg PO SUTUTHSA Levothyroxine Sodium [Synthroid] 25 mcg PO DAILY Anagrelide HCl [Agrylin] 0.5 mg PO BID Omeprazole 20 mg PO DAILY Hydroxyurea 1,000 mg PO MOWEFR Metoprolol Tartrate [Lopressor] 75 mg PO DAILY Vitamin B Complex 1 cap PO DAILY Vitamin A Red 1 cap PO BID Aspirin EC [Ecotrin] 325 mg PO HS Calcium W/Vitamin D3(Unknown Dose) 1 tab PO DAILY Furosemide [Lasix] 20 mg PO DAILY Discontinued Lovastatin [Mevacor] 20 mg PO HS Discharge Medication List Anagrelide HCl [Agrylin] 0.5 mg PO BID 11/06/15 [History] Hydroxyurea [Hydrea] 500 mg PO SUTUTHSA 11/06/15 [History] Levothyroxine Sodium [Synthroid] 25 mcg PO DAILY 11/06/15 [History] amLODIPine BESYLATE [Norvasc] 5 mg PO DAILY 11/06/15 [History] Hydroxyurea 1,000 mg PO MOWEFR 04/18/16 [History] Omeprazole 20 mg PO DAILY 04/18/16 [History] Metoprolol Tartrate [Lopressor] 75 mg PO DAILY 09/03/17 [History] Aspirin EC [Ecotrin] 325 mg PO HS 08/09/20 [History] Calcium W/Vitamin D3(Unknown Dose) 1 tab PO DAILY 08/09/20 [History] Furosemide [Lasix] 20 mg PO DAILY 08/09/20 [History] Vitamin A Red 1 cap PO BID 08/09/20 [History] Vitamin B Complex 1 cap PO DAILY 08/09/20 [History] Atorvastatin [Lipitor] 40 mg PO HS 30 Days #30 tab 08/13/20 [Rx] Cefpodoxime Proxetil [Vantin] 100 mg PO Q12HR 3 Days #6 tab 08/13/20 [Rx] Clopidogrel [Plavix] 75 mg PO DAILY 21 Days #30 tab 08/13/20 [Rx] Follow up Appointment(s)/Referral(s): [facility], [NON-STAFF] - Barrington Rivera MD [Primary Care Provider] - 08/19/20 1:45 pm Lalito Medrano MD [REFERRING] - 1 Week (Office will be calling you with an appointment date and time) Patient Instructions/Handouts: Urinary Tract Infection in Women (DC), Community Acquired Pneumonia (DC) Activity/Diet/Wound Care/Special Instructions: Activity: As tolerated. Diet: Heart Healthy diet Special Instructions: You are being discharged home with home health services with [facility]. Please take your medications as prescribed and do not miss any doses. You will need to follow up with your PCP in 1-2 days and neurology in 1 week. Discharge/Stand Alone Forms: Help In The Home Discharge Disposition: HOME WITH HOME HEALTH SERVICES <Brie Cifuentes - Last Filed: 08/13/20 17:39> Providers Date of admission: 08/09/20 19:14 Attending physician: Fahad Isaac MD Consults: 08/10/20 18:04 Consult Physician Urgent Consulting Provider: Ravinder Gallardo Consult Reason/Comments: r\o TIA Do you want consulting provider notified?: Yes Primary care physician: Barrington Rivera MD Hospital Course: Patient seen and examined independently. Patient was also seen by Robert Willis NP and case was discussed. I am in agreement with discharge diagnosis, hospital course, and physical exam as written above and amended below. Patient seen and examined at bedside. No additional questions. Feeling good. No chest pain, shortness breath, nausea, vomiting. General: non toxic, no distress, appears at stated age Derm: warm, dry Head: atraumatic, normocephalic, symmetric Eyes: EOMI, no lid lag, anicteric sclera Mouth: no lip lesion, mucus membranes moist Cardiovascular: S1S2 reg, no murmur, positive posterior tibial pulse bilateral, Lungs: Decreased breath sounds bilateral, no rhonchi, no rales , no accessory muscle use Ext: no gross muscle atrophy, no edema, no contractures Psych: Alert, oriented, appropriate affect
== END 2020-08-13 16:52 | disposition home health service (06) | DRG 871 ==
LOC: EC 14:43 → 4SSUR 19:14
PROVIDERS: ADMIT Internal Medicine; ATTEND Internal Medicine
DX: A41.9 Sepsis, unspecified organism (principal); J18.9 Pneumonia, unspecified organism; G93.41 Metabolic encephalopathy; G45.9 Transient cerebral ischemic attack, unspecified; E87.1 Hypo-osmolality and hyponatremia; N39.0 Urinary tract infection, site not specified; T88.1XXA Other complications following immunization, not elsewhere classified, initial encounter; I72.5 Aneurysm of other precerebral arteries; I11.9 Hypertensive heart disease without heart failure; Z20.822 Contact with and (suspected) exposure to COVID-19; Z66 Do not resuscitate; E03.9 Hypothyroidism, unspecified; E78.5 Hyperlipidemia, unspecified; I44.7 Left bundle-branch block, unspecified; R77.8 Other specified abnormalities of plasma proteins; K44.9 Diaphragmatic hernia without obstruction or gangrene; Q75.2 Hypertelorism; R47.81 Slurred speech; R29.810 Facial weakness; I35.0 Nonrheumatic aortic (valve) stenosis; D75.89 Other specified diseases of blood and blood-forming organs; Z79.82 Long term (current) use of aspirin; Z79.890 Hormone replacement therapy; Z79.899 Other long term (current) drug therapy; Z85.6 Personal history of leukemia; Z98.42 Cataract extraction status, left eye; Z96.652 Presence of left artificial knee joint; Z98.890 Other specified postprocedural states; Z88.2 Allergy status to sulfonamides
CPT/HCPCS: 36415; 70450; 70496; 70498; 70551; 71045; 80048; 80053; 80061; 81001; 82607; 82747; 83605; 83735; 83880; 84145; 84443; 84484; 85025; 85027; 85379; 85610; 85730; 87040; 87086; 87635; 93005; 93306; 94760; 96361; 96365; 96374; 96375; 99285

== ENCOUNTER 2020-08-15 22:04 | Observation (INO) | payer MEDICARE, BC ==
[2020-08-15] MEDS ORDERED: SODIUM CHLORIDE 0.9% 1,000 ML IV STA ×2 (22:23→23:22)
[2020-08-15 22:45] LABS: Basophils # (A) 0.1 k/uL (0-0.2); Basophils % (A) 0 %; Eosinophils # (A) 0.6 k/uL (0-0.7); Eosinophils % (A) 5 %; HCT 41.9 % (34.0-46.0); HGB 13.4 gm/dL (11.4-16.0); Lymphocytes # (A) 4.9 k/uL (1.0-4.8); Lymphocytes % (A) 41 %; MCH 34.3 pg (25.0-35.0); Macrocytosis Marked; Monocytes # (A) 0.4 k/uL (0-1.0); Monocytes % (A) 3 %; Neutrophils # (A) 5.8 k/uL (1.3-7.7); Neutrophils % (A) 48 %; RBC 3.91 m/uL (3.80-5.40); RDW 15.9 % (11.5-15.5); WBC 11.9 k/uL (3.8-10.6)
[2020-08-15 22:56] LABS: Partial Thromboplastin Time 25.8 sec (22.0-30.0); Prothrombin Time 10.7 sec (9.0-12.0)
--- NOTE | 2020-08-15 22:56 | XR ---
EXAMINATION TYPE: XR chest 2V DATE OF EXAM: 08/15/2020 COMPARISON: 08/09/2020 HISTORY: Weakness TECHNIQUE: FINDINGS: There is large hiatal hernia. There is no heart failure. Heart size is fairly normal. The l ungs appear clear of consolidation. There are chest leads. Bony thorax is intact. IMPRESSION: Very large hiatal hernia unchanged. No heart failure seen. There is probably some mild pu lmonary fibrosis.
[2020-08-15 23:03] LABS: Albumin 4.7 g/dL (3.5-5.0); Calcium 9.6 mg/dL (8.4-10.2); Magnesium 1.2 mg/dL (1.6-2.3); Phosphorus 4.1 mg/dL (2.5-4.5); Potassium 4.2 mmol/L (3.5-5.1); Total Bilirubin 0.4 mg/dL (0.2-1.3); Total Protein 7.7 g/dL (6.3-8.2)
[2020-08-15] MEDS ORDERED: MAGNESIUM OXIDE 400 MG TAB PO STA (23:22)
[2020-08-15] MEDS ORDERED: METOPROLOL TARTRATE 5 MG/5 ML VIAL IVP STA (23:22)
--- NOTE | 2020-08-15 23:22 | ED ---
Arrhythmia/Palpitations HPI - General Chief Complaint: Arrhythmia/Palpitations Stated Complaint: Heart racing, SOB Time Seen by Provider: 08/15/20 22:22 Source: patient, RN notes reviewed, old records reviewed Mode of arrival: wheelchair Limitations: no limitations - History of Present Illness Initial Comments: This is a 84-year-old female presenting for elevated heart rate. Patient also complains of shortness of breath especially with exertion. Just recently discharged from the hospital is feeling. Patient has no fevers, does have cough no congestion. Symptoms are persistently increasing especially with elevated heart rate. MD Complaint: rapid heart beat, palpitations, irregular heart beat -: hour(s) Context: occurred during rest Associated Symptoms: shortness of breath Treatments Prior to Arrival: beta-jennifer - Related Data Home Medications Medication Instructions Recorded Confirmed Anagrelide HCl [Agrylin] 0.5 mg PO BID 11/06/15 08/09/20 Hydroxyurea [Hydrea] 500 mg PO SUTUTHSA 11/06/15 08/09/20 Levothyroxine Sodium [Synthroid] 25 mcg PO DAILY 11/06/15 08/09/20 amLODIPine BESYLATE [Norvasc] 5 mg PO DAILY 11/06/15 08/09/20 Hydroxyurea 1,000 mg PO MOWEFR 04/18/16 08/09/20 Omeprazole 20 mg PO DAILY 04/18/16 08/09/20 Metoprolol Tartrate [Lopressor] 75 mg PO DAILY 09/03/17 08/09/20 Aspirin EC [Ecotrin] 325 mg PO HS 08/09/20 08/09/20 Calcium W/Vitamin D3(Unknown Dose) 1 tab PO DAILY 08/09/20 08/09/20 Furosemide [Lasix] 20 mg PO DAILY 08/09/20 08/09/20 Vitamin A Red 1 cap PO BID 08/09/20 08/09/20 Vitamin B Complex 1 cap PO DAILY 08/09/20 08/09/20 Previous Rx's Medication Instructions Recorded Atorvastatin [Lipitor] 40 mg PO HS 30 Days #30 tab 08/13/20 Cefpodoxime Proxetil [Vantin] 100 mg PO Q12HR 3 Days #6 tab 08/13/20 Clopidogrel [Plavix] 75 mg PO DAILY 21 Days #30 tab 08/13/20 Allergies Allergy/AdvReac Type Severity Reaction Status Date / Time Sulfa (Sulfonamide Allergy Rash/Hives Verified 08/15/20 22:12 Antibiotics) Review of Systems ROS Statement: Those systems with pertinent positive or pertinent negative responses have been documented in the HPI. ROS Other: All systems not noted in ROS Statement are negative. Past Medical History Past Medical History: Blood Disorder, Cancer, CVA/TIA, Hyperlipidemia, Hypertension, Pneumonia, Thyroid Disorder Additional Past Medical History / Comment(s): leukemia, History of Any Multi-Drug Resistant Organisms: None Reported Past Surgical History: Joint Replacement Additional Past Surgical History / Comment(s): left knee replacement, ovarian cysts removed, left cataracts, Past Anesthesia/Blood Transfusion Reactions: No Reported Reaction Past Psychological History: No Psychological Hx Reported Smoking Status: Never smoker Past Alcohol Use History: None Reported Past Drug Use History: None Reported General Exam Limitations: no limitations General appearance: alert, in no apparent distress, anxious Head exam: Present: atraumatic, normocephalic, normal inspection Eye exam: Present: normal appearance, PERRL, EOMI. Absent: scleral icterus, conjunctival injection, periorbital swelling ENT exam: Present: normal exam, mucous membranes moist Neck exam: Present: normal inspection. Absent: tenderness, meningismus, lymphadenopathy Respiratory exam: Present: normal lung sounds bilaterally, decreased breath sounds, prolonged expiratory. Absent: respiratory distress, wheezes, rales, rhonchi, stridor Cardiovascular Exam: Present: normal rhythm, tachycardia, normal heart sounds. Absent: systolic murmur, diastolic murmur, rubs, gallop, clicks GI/Abdominal exam: Present: soft, normal bowel sounds. Absent: distended, tenderness, guarding, rebound, rigid Extremities exam: Present: normal inspection, full ROM, normal capillary refill. Absent: tenderness, pedal edema, joint swelling, calf tenderness Back exam: Present: normal inspection Neurological exam: Present: alert, oriented X3, CN II-XII intact Psychiatric exam: Present: normal affect, normal mood Skin exam: Present: warm, dry, intact, normal color. Absent: rash Course Vital Signs 08/15/20 08/15/20 08/16/20 22:08 23:00 01:00 Temperature 97.7 F Pulse Rate 136 H 113 H 99 Respiratory 20 16 16 Rate Blood Pressure 132/74 133/74 156/95 O2 Sat by Pulse 98 97 97 Oximetry - Reevaluation(s) Reevaluation #1: Medical record is reviewed Patient heart rate fails to improve here in the ER despite electrolyte hydration and beta jennifer Patient herself does continue to complain shortness of breath - Consultations Consultation #1: Spoke with sound physicians who agreed to admit the patient EKG Findings - EKG Comments: EKG Findings:: EKG is sinus tachycardia 132 SD 124 QRS 1:30 QTC 488 Medical Decision Making - Medical Decision Making 84 female to the ER for evaluation of weakness shortness of breath with exertion and severe tachycardia. She does have recent hospital inpatient admission. Patient also has new thrombocytosis. Patient will be admitted for hydration monitoring of heart rate - Lab Data Result diagrams: 08/15/20 22:31 08/15/20 22:31 Lab Results 08/15/20 08/15/20 08/15/20 Range/Units 22:31 22:31 22:31 WBC 11.9 H (3.8-10.6) k/uL RBC 3.91 (3.80-5.40) m/uL Hgb 13.4 (11.4-16.0) gm/dL Hct 41.9 (34.0-46.0) % MCV 107.0 H (80.0-100.0) fL MCH 34.3 (25.0-35.0) pg MCHC 32.0 (31.0-37.0) g/dL RDW 15.9 H (11.5-15.5) % Plt Count 830 H D (150-450) k/uL MPV 9.0 Neutrophils % 48 % Lymphocytes % 41 % Monocytes % 3 % Eosinophils % 5 % Basophils % 0 % Neutrophils # 5.8 (1.3-7.7) k/uL Lymphocytes # 4.9 H (1.0-4.8) k/uL Monocytes # 0.4 (0-1.0) k/uL Eosinophils # 0.6 (0-0.7) k/uL Basophils # 0.1 (0-0.2) k/uL Manual Slide Review Performed Large Platelets Present Poikilocytosis (manual Present Anisocytosis (manual) Present Macrocytosis Marked A Target Cells Present PT 10.7 (9.0-12.0) sec INR 1.0 (<1.2) APTT 25.8 (22.0-30.0) sec D-Dimer (<0.60) mg/L FEU Sodium 134 L (137-145) mmol/L Potassium 4.2 (3.5-5.1) mmol/L Chloride 96 L (98-107) mmol/L Carbon Dioxide 28 (22-30) mmol/L Anion Gap 10 mmol/L BUN 27 H (7-17) mg/dL Creatinine 0.96 (0.52-1.04) mg/dL Est GFR (CKD-EPI)AfAm 62 (>60 ml/min/1.73 sqM) Est GFR (CKD-EPI)NonAf 54 (>60 ml/min/1.73 sqM) Glucose 118 H (74-99) mg/dL Plasma Lactic Acid [place] (0.7-2.0) mmol/L Calcium 9.6 (8.4-10.2) mg/dL Phosphorus 4.1 (2.5-4.5) mg/dL Magnesium 1.2 L (1.6-2.3) mg/dL Total Bilirubin 0.4 (0.2-1.3) mg/dL AST 59 H (14-36) U/L ALT 50 H (4-34) U/L Alkaline Phosphatase 110 (38-126) U/L Creatine Kinase 71 (30-135) U/L Troponin I (0.000-0.034) ng/mL NT-Pro-B Natriuret Pep pg/mL Total Protein 7.7 (6.3-8.2) g/dL Albumin 4.7 (3.5-5.0) g/dL TSH 6.530 H (0.465-4.680) mIU/L Urine Color Urine Appearance (Clear) Urine pH (5.0-8.0) Ur Specific [place] (1.001-1.035) Urine Protein (Negative) Urine Glucose (UA) (Negative) Urine Ketones (Negative) Urine Blood (Negative) Urine Nitrite (Negative) Urine Bilirubin (Negative) Urine Urobilinogen (<2.0) mg/dL Ur Leukocyte Esterase (Negative) 08/15/20 08/15/20 08/15/20 Range/Units 22:31 22:31 22:31 WBC (3.8-10.6) k/uL RBC (3.80-5.40) m/uL Hgb (11.4-16.0) gm/dL Hct (34.0-46.0) % MCV (80.0-100.0) fL MCH (25.0-35.0) pg MCHC (31.0-37.0) g/dL RDW (11.5-15.5) % Plt Count (150-450) k/uL MPV Neutrophils % % Lymphocytes % % Monocytes % % Eosinophils % % Basophils % % Neutrophils # (1.3-7.7) k/uL Lymphocytes # (1.0-4.8) k/uL Monocytes # (0-1.0) k/uL Eosinophils # (0-0.7) k/uL Basophils # (0-0.2) k/uL Manual Slide Review Large Platelets Poikilocytosis (manual Anisocytosis (manual) Macrocytosis Target Cells PT (9.0-12.0) sec INR (<1.2) APTT (22.0-30.0) sec D-Dimer (<0.60) mg/L FEU Sodium (137-145) mmol/L Potassium (3.5-5.1) mmol/L Chloride (98-107) mmol/L Carbon Dioxide (22-30) mmol/L Anion Gap mmol/L BUN (7-17) mg/dL Creatinine (0.52-1.04) mg/dL Est GFR (CKD-EPI)AfAm (>60 ml/min/1.73 sqM) Est GFR (CKD-EPI)NonAf (>60 ml/min/1.73 sqM) Glucose (74-99) mg/dL Plasma Lactic Acid [place] 1.0 (0.7-2.0) mmol/L Calcium (8.4-10.2) mg/dL Phosphorus (2.5-4.5) mg/dL Magnesium (1.6-2.3) mg/dL Total Bilirubin (0.2-1.3) mg/dL AST (14-36) U/L ALT (4-34) U/L Alkaline Phosphatase (38-126) U/L Creatine Kinase (30-135) U/L Troponin I <0.012 (0.000-0.034) ng/mL NT-Pro-B Natriuret Pep 242 pg/mL Total Protein (6.3-8.2) g/dL Albumin (3.5-5.0) g/dL TSH (0.465-4.680) mIU/L Urine Color Urine Appearance (Clear) Urine pH (5.0-8.0) Ur Specific [place] (1.001-1.035) Urine Protein (Negative) Urine Glucose (UA) (Negative) Urine Ketones (Negative) Urine Blood (Negative) Urine Nitrite (Negative) Urine Bilirubin (Negative) Urine Urobilinogen (<2.0) mg/dL Ur Leukocyte Esterase (Negative) 08/15/20 08/16/20 Range/Units 22:31 00:19 WBC (3.8-10.6) k/uL RBC (3.80-5.40) m/uL Hgb (11.4-16.0) gm/dL Hct (34.0-46.0) % MCV (80.0-100.0) fL MCH (25.0-35.0) pg MCHC (31.0-37.0) g/dL RDW (11.5-15.5) % Plt Count (150-450) k/uL MPV Neutrophils % % Lymphocytes % % Monocytes % % Eosinophils % % Basophils % % Neutrophils # (1.3-7.7) k/uL Lymphocytes # (1.0-4.8) k/uL Monocytes # (0-1.0) k/uL Eosinophils # (0-0.7) k/uL Basophils # (0-0.2) k/uL Manual Slide Review Large Platelets Poikilocytosis (manual Anisocytosis (manual) Macrocytosis Target Cells PT (9.0-12.0) sec INR (<1.2) APTT (22.0-30.0) sec D-Dimer 0.77 H (<0.60) mg/L FEU Sodium (137-145) mmol/L Potassium (3.5-5.1) mmol/L Chloride (98-107) mmol/L Carbon Dioxide (22-30) mmol/L Anion Gap mmol/L BUN (7-17) mg/dL Creatinine (0.52-1.04) mg/dL Est GFR (CKD-EPI)AfAm (>60 ml/min/1.73 sqM) Est GFR (CKD-EPI)NonAf (>60 ml/min/1.73 sqM) Glucose (74-99) mg/dL Plasma Lactic Acid [place] (0.7-2.0) mmol/L Calcium (8.4-10.2) mg/dL Phosphorus (2.5-4.5) mg/dL Magnesium (1.6-2.3) mg/dL Total Bilirubin (0.2-1.3) mg/dL AST (14-36) U/L ALT (4-34) U/L Alkaline Phosphatase (38-126) U/L Creatine Kinase (30-135) U/L Troponin I (0.000-0.034) ng/mL NT-Pro-B Natriuret Pep pg/mL Total Protein (6.3-8.2) g/dL Albumin (3.5-5.0) g/dL TSH (0.465-4.680) mIU/L Urine Color Light Yellow Urine Appearance Clear (Clear) Urine pH 6.0 (5.0-8.0) Ur Specific [place] 1.006 (1.001-1.035) Urine Protein Negative (Negative) Urine Glucose (UA) Negative (Negative) Urine Ketones Negative (Negative) Urine Blood Negative (Negative) Urine Nitrite Negative (Negative) Urine Bilirubin Negative (Negative) Urine Urobilinogen <2.0 (<2.0) mg/dL Ur Leukocyte Esterase Negative (Negative) - Radiology Data Radiology results: report reviewed (Chest x-ray is unchanged from prior), image reviewed Disposition Clinical Impression: Sinus tachycardia, Tachycardia Disposition: HOME SELF-CARE Condition: Good Is patient prescribed a controlled substance at d/c from ED?: No
[2020-08-15 23:29] LABS: Platelet Count 830 k/uL (150-450)
[2020-08-16 00:33] LABS: Appearance,Urine Clear (Clear); Bilirubin,Urine Negative (Negative); Blood,Urine Negative (Negative); Color,Urine Light Yellow; Glucose,Urine (UA) Negative (Negative); Ketones,Urine Negative (Negative); Leukocyte Esterase,Urine Negative (Negative); Nitrite,Urine Negative (Negative); Protein,Urine Negative (Negative); Specific Gravity,Urine 1.006 (1.001-1.035); Urobilinogen,Urine <2.0 mg/dL (<2.0)
[2020-08-16] MEDS ORDERED: NITROGLYCERIN SL TABS 0.4 MG TAB SUBLINGUAL PRN (00:34)
[2020-08-16] MEDS: SODIUM CHLORIDE 0.9% 1,000 ML IV SCH ×3 (00:55→20:50)
[2020-08-16] MEDS: MAGNESIUM SULFATE-D5W PMX 1 GM in DEXTROSE/WATER 1 100ML.BAG IVPB SCH ×2 (01:15→02:15)
[2020-08-16 01:45] LABS: Anisocytosis (M) Present; Large Platelets Present
[2020-08-16 01:46] LABS: Poikilocytosis (M) Present
--- NOTE | 2020-08-16 01:46 | P.HPIM ---
History of Present Illness H&P Date: 08/16/20 Patient is an 84-year-old female with a PMH of hypertension, hyperlipidemia, and hypothyroidism, recently discharged from [facility], presented to the emergency room with complaints of chest pain and shortness of breath. Of note, the patient was discharged on 08/13 after a four-day hospital stay for the initial complaints of confusion. The patient was treated for sepsis suspected due to U TI versus pneumonia. The patient now notes that she was back home, functioning back at her baseline level when she woke up suddenly around 9 PM with substernal chest discomfort, pressure-like, nonradiating, 4 out of 10, nonpleuritic, with no clearly alleviating or exacerbating features with associated shortness of breath. The patient notes that her discomfort only lasted for a minute or 2. She called her granddaughter who is her medical power of deputy attorney general was subsequently activated EMS. The patient notes that her shortness of breath gradually improved as well and she currently feels back to her baseline again. She reports eating and drinking drinking adequate amounts of food and water si nce her discharge. She notes that her long-standing lower extremity edema is unchanged. She denied leg pain or pleuritic chest discomfort. Also denied dysuria, fever, cough, nausea, vomiting, palpitations, dizziness, abdominal pain, or diarrhea. In the emergency room, upon presentation she was noted to be tachycardic to 136 with BP 132/74, SpO2 98% on room air, and temperature 97.7. Laboratory evaluation revealed troponin less than 0.012, proBNP 242, WBC count 11.9, platelets 830, sodium 134, chloride 96, BUN 27, creatinine 0.96, magnesium 1.2, AST 59, ALT 50, TSH 6.5. EKG revealed sinus tachycardia at 124 bpm chest x-ray revealed a very large hiatal hernia with no heart failure and possible mild pulmonary fibrosis. Review of Systems Pertinent positives and negatives as discussed in HPI, a complete review of systems was performed and all other systems are negative. Past Medical History Past Medical History: Blood Disorder, Cancer, CVA/TIA, Hyperlipidemia, Hypertension, Pneumonia, Thyroid Disorder Additional Past Medical History / Comment(s): leukemia, History of Any Multi-Drug Resistant Organisms: None Reported Past Surgical History: Joint Replacement Additional Past Surgical History / Comment(s): left knee replacement, ovarian cysts removed, left cataracts, Past Anesthesia/Blood Transfusion Reactions: No Reported Reaction Past Psychological History: No Psychological Hx Reported Smoking Status: Never smoker Past Alcohol Use History: None Reported Past Drug Use History: None Reported Medications and Allergies Home Medications Medication Instructions Recorded Confirmed Type Anagrelide HCl [Agrylin] 0.5 mg PO BID 11/06/15 08/09/20 History Hydroxyurea [Hydrea] 500 mg PO SUTUTHSA 11/06/15 08/09/20 History Levothyroxine Sodium [Synthroid] 25 mcg PO DAILY 11/06/15 08/09/20 History amLODIPine BESYLATE [Norvasc] 5 mg PO DAILY 11/06/15 08/09/20 History Hydroxyurea 1,000 mg PO MOWEFR 04/18/16 08/09/20 History Omeprazole 20 mg PO DAILY 04/18/16 08/09/20 History Metoprolol Tartrate [Lopressor] 75 mg PO DAILY 09/03/17 08/09/20 History Aspirin EC [Ecotrin] 325 mg PO HS 08/09/20 08/09/20 History Calcium W/Vitamin D3(Unknown Dose) 1 tab PO DAILY 08/09/20 08/09/20 History Furosemide [Lasix] 20 mg PO DAILY 08/09/20 08/09/20 History Vitamin A Red 1 cap PO BID 08/09/20 08/09/20 History Vitamin B Complex 1 cap PO DAILY 08/09/20 08/09/20 History Atorvastatin [Lipitor] 40 mg PO HS 30 Days #30 tab 08/13/20 Rx Cefpodoxime Proxetil [Vantin] 100 mg PO Q12HR 3 Days #6 tab 08/13/20 Rx Clopidogrel [Plavix] 75 mg PO DAILY 21 Days #30 tab 08/13/20 Rx Allergies Allergy/AdvReac Type Severity Reaction Status Date / Time Sulfa (Sulfonamide Allergy Rash/Hives Verified 08/15/20 22:12 Antibiotics) Physical Exam Vitals: Vital Signs Temp Pulse Resp BP Pulse Ox 08/16/20 01:00 99 16 156/95 97 08/15/20 23:00 113 H 16 133/74 97 08/15/20 22:08 97.7 F 136 H 20 132/74 98 Intake and Output 08/15/20 08/15/20 08/16/20 14:59 22:59 06:59 Other: Weight 68.946 kg General: non toxic, no distress, appears at stated age, normal weight Derm: no unusual rashes/lesions no unusual ecchymoses, warm, dry Head: atraumatic, normocephalic, symmetric Eyes: EOMI, no lid lag, anicteric sclera, pupils equal round reactive to light ENT: Nose and ears atraumatic, no thrush, no pharyngeal erythema Neck: No thyromegaly, no cervical lymphadenopathy, trachea midline, supple Mouth: no lip lesion, mucus membranes moist Cardiovascular: S1S2 reg, no murmur, positive posterior tibial pulse bilateral, trace bilateral lower extremity edema, capillary refill less than 2 seconds Lungs: CTA bilateral, no rhonchi, no rales , no accessory muscle use Abdominal: soft, nontender to palpation, no guarding, no appreciable organomegaly, normal bowel sounds Ext: no gross muscle atrophy, muscle strength 5 out of 5 in all 4 extremities grossly, no contractures, Neuro: CN II-XI grossly intact, light touch intact all 4 extremities, finger to nose within normal limits, Psych: Alert, oriented, appropriate affect Results CBC & Chem 7: 08/15/20 22:31 08/15/20 22:31 Labs: Abnormal Lab Results - Last 24 Hours (Table) 08/15/20 08/15/20 Range/Units 22:31 22:31 WBC 11.9 H (3.8-10.6) k/uL MCV 107.0 H (80.0-100.0) fL RDW 15.9 H (11.5-15.5) % Plt Count 830 H D (150-450) k/uL Macrocytosis Marked A Sodium 134 L (137-145) mmol/L Chloride 96 L (98-107) mmol/L BUN 27 H (7-17) mg/dL Glucose 118 H (74-99) mg/dL Magnesium 1.2 L (1.6-2.3) mg/dL AST 59 H (14-36) U/L ALT 50 H (4-34) U/L TSH 6.530 H (0.465-4.680) mIU/L Assessment and Plan Plan: Chest pain and shortness of breath, unclear etiology -Obtain d-dimer -Cardiology consult to rule out ACS -Cardiac monitoring -Low suspicion for CHF -Echo from 08/10 revealed mild concentric LVH with EF 50-55% and moderate MR Prerenal azotemia -Continue with gentle hydration and monitor for now Hypomagnesemia -Replace and monitor TSH, likely falsely high due to acute stress -TSH on 08/11 within normal limits at 2.260 Thrombocytosis, likely reactive -Patient previously followed with Dr. Phelps Chronic conditions: Hypertension, hyperlipidemia, hypothyroidism -Continue with home medications DVT prophylaxis -Heparin subq The patient is admitted with an anticipated less than 2 midnight stay for evaluation of chest pain CODE STATUS: No Code (Discussed with patient and grand-daughter at bedside) Discussed with: Patient, Grand-daughter, RN Anticipated discharge date: in am Anticipated discharge place: home A total of 40 minutes was spent on the care of this complex patient more than 50% of the time was spent in counseling and care coordination.
[2020-08-16 01:48] LABS: Target Cells Present
[2020-08-16] MEDS ORDERED: MAGNESIUM SULFATE-D5W PMX 1 GM in DEXTROSE/WATER 1 100ML.BAG IVPB SCH (03:15)
[2020-08-16 05:37] LABS: Calcium 9.5 mg/dL (8.4-10.2); Magnesium 2.6 mg/dL (1.6-2.3); Potassium 4.7 mmol/L (3.5-5.1)
[2020-08-16] MEDS: LEVOTHYROXINE 25 MCG TAB PO SCH (06:44)
[2020-08-16] MEDS: CLOPIDOGREL 75 MG TAB PO SCH (08:25)
[2020-08-16] MEDS: amLODIPine 5 MG TAB PO SCH (08:25)
[2020-08-16] MEDS: PANTOPRAZOLE 40 MG TABLET PO SCH (08:25)
[2020-08-16] MEDS: HEPARIN SODIUM,PORCINE 5,000 UNIT/ML 1 ML VIAL SQ SCH ×2 (08:25→16:05)
[2020-08-16] MEDS: METOPROLOL TARTRATE 50 MG TAB PO SCH ×2 (08:29→19:30)
[2020-08-16 08:31] LABS: Anisocytosis Slight; HCT 39.7 % (34.0-46.0); HGB 12.4 gm/dL (11.4-16.0); Hypochromasia Slight; MCH 33.6 pg (25.0-35.0); MCHC 31.2 g/dL (31.0-37.0); MCV 107.6 fL (80.0-100.0); Macrocytosis Marked; Mean Platelet Volume 8.9; RBC 3.69 m/uL (3.80-5.40); RDW 16.5 % (11.5-15.5); WBC 10.2 k/uL (3.8-10.6)
[2020-08-16 09:00] LABS: Eosinophils # (M) 0.41 k/uL (0-0.7); Lymphocytes # (M) 2.75 k/uL (1.0-4.8); Monocytes # (M) 0.61 k/uL (0-1.0); Neutrophils # (M) 6.43 k/uL (1.3-7.7); Neutrophils % (M) 63 %; Nucleated Red Blood Cells 0 /100 WBC (0-0); Target Cells Present; Total Cells Counted 100
[2020-08-16] MEDS ORDERED: HYDROXYUREA 500 MG CAP PO SCH (09:00)
[2020-08-16 09:02] LABS: Poikilocytosis (M) Present
[2020-08-16 09:03] LABS: Large Platelets Present; Platelet Count 898 k/uL (150-450)
[2020-08-16] MEDS: CEFDINIR 300 MG CAP PO SCH ×2 (10:07→20:47)
--- NOTE | 2020-08-16 14:11 | P.PN ---
<Robert Willis - Last Filed: 08/16/20 13:32> Subjective Progress Note Date: 08/16/20 Principal diagnosis: Chest pain accompanied by shortness of breath Patient is an 84-year-old female with a past medical history of hypertension, hyperlipidemia, and hypothyroidism. She was recently admitted to our facility from 08/09/20 through 08/13/20 where she underwent treatment for a TIA, uncomplicated UTI with sepsis upon presentation, acute metabolic encephalopathy, and an elevated troponin. Patient reports she has felt great since discharge but suddenly awoke experiencing some substernal chest pressure and discomfort accompanied by shortness of breath. Patient states this pain was mild retaining approximately 4 out of 10 and described it as pressure as though someone was pushing hard in the middle of her chest. She denies feeling any palpitations, l ightheadedness, dizziness, nausea, or experiencing any diaphoresis with this event. Patient was evaluated in the emergency department and admitted under our services for further evaluation of patient's chest pain and shortness breath. Labs did reveal prerenal azotemia with a BUN of 27, thrombocytosis with a platelet count of 830, significant hypomagnesemia with magnesium of 1.2, Her chest x-ray was completed revealing some mild pulmonary fibrosis with an unchanged large hiatal hernia, No signs of pneumonia, effusions, or congestive heart failure were noted. An EKG was obtained revealing sinus tachycardia at [address] depression and T-wave inversion in leads 1, aVL, V5, and V6 which is unchanged from previous EKGs with the exception of the rate. Troponins 3 sets negative. Patient had recent echocardiogram on 08/10/20 revealing preserved ejection fraction of 50-55% and moderate mitral regurgitation. Physical assessment: Patient seen and fully evaluated at the bedside. She was sitting on the edge of the bed eating her breakfast. She reports that she was sleeping when previous episode of chest pressure accompanied by shortness of breath occurred. Patient reports that since she has arrived to the hospital she has had no further episodes of chest pain/pressure or any shortness of breath. Patient denies having headache, lightheadedness, dizziness, changes in her vision or hearing, changes in her difficulties with speech or memory, palpitations, abdominal pain, nausea, vomiting, changes in or difficulties with urination or bowel function, and denies having any numbness/tingling/weakness in extremities. Patient denies any increase in her chronic lower extremity edema. She reports taking her medications as prescribed and not missing any doses. General: non toxic, no distress, appears at stated age Derm: warm, dry Head: atraumatic, normocephalic, symmetric Eyes: EOMI, no lid lag, anicteric sclera Mouth: no lip lesion, mucus membranes moist Cardiovascular: S1S2 reg, Murmur present, positive posterior tibial pulses bilaterally, cap refill < 2 seconds. Lungs: Respirations even regular and unlabored on room air. Lungs CTA bilaterally, no rhonchi, no rales, no wheezes and no accessory muscle usage. Abdominal: soft, nontender to palpation, no guarding, no appreciable organomegaly Ext: no gross muscle atrophy, minimal lower extremity edema. No contractures. Neuro: CN II-XI grossly intact, no focal neuro deficits Psych: Alert, oriented, appropriate affect. Assessment and Plan of Care: Chest pain accompanied by shortness of breath and tachycardia, unclear etiology -Troponins negative 3 -EKG was obtained revealing sinus tachycardia at [address] depression and T-wave inversion in leads 1, aVL, V5, and V6 which is unchanged from previous EKGs with the exception of the rate. -Echocardiogram completed on 08/10/20 revealing preserved ejection fraction of 50- 55% and moderate mitral regurgitation. -Cardiology consulted, appreciate recommendations -Telemetry monitoring -Continue daily medication management including amlodipine, aspirin, atorvastatin, Plavix, metoprolol, when necessary nitro. -Metoprolol increased to 50 mg twice a day instead of 75 mg once daily. Hypomagnesemia, resolved Thrombocytosis -Possibly reactive. -Continue daily hydroxyurea, Anagrelide, and aspirin. Prerenal Azotemia, improving -Initial BUN 27 with repeat 22 Hypothyroidism with Elevated TSH -Continue daily Synthroid 25 g each morning. -Patient to follow up outpatient with PCP/endocrinology for repeat testing and continued close monitoring of thyroid function with adjustment of replacement hormones as needed. Hypertension -Monitor vital signs and continue daily medication management including amlodipine and metoprolol. -Metoprolol increased to 50 mg twice a day instead of 75 mg once daily secondary to tachycardia. Hyperlipidemia -Continue daily medication management with atorvastatin. -Heart healthy diet. CODE STATUS: DO NOT INTUBATE/DO NOT RESUSCITATE Discussed with: Patient and emergency RN Anticipated discharge date: Anticipated discharge place A total of 45 minutes was spent on the care of this patient with more than 50% of this time being spent in counseling and care coordination. Objective - Vital Signs Vital signs: Vital Signs Temp 98.2 F 08/16/20 11:20 Pulse 88 08/16/20 10:12 Resp 16 08/16/20 10:12 BP 135/94 08/16/20 10:10 Pulse Ox 96 08/16/20 10:10 Intake & Output 08/15/20 08/16/20 08/16/20 18:59 06:59 18:59 Weight 68.946 kg - Labs CBC & Chem 7: 08/16/20 07:35 08/16/20 04:20 Labs: Abnormal Lab Results - Last 24 Hours (Table) 08/15/20 08/15/20 08/15/20 Range/Units 22:31 22:31 22:31 WBC 11.9 H (3.8-10.6) k/uL RBC (3.80-5.40) m/uL MCV 107.0 H (80.0-100.0) fL RDW 15.9 H (11.5-15.5) % Plt Count 830 H D (150-450) k/uL Lymphocytes # 4.9 H (1.0-4.8) k/uL Macrocytosis Marked A D-Dimer 0.77 H (<0.60) mg/L FEU Sodium 134 L (137-145) mmol/L Chloride 96 L (98-107) mmol/L BUN 27 H (7-17) mg/dL Glucose 118 H (74-99) mg/dL Magnesium 1.2 L (1.6-2.3) mg/dL AST 59 H (14-36) U/L ALT 50 H (4-34) U/L TSH 6.530 H (0.465-4.680) mIU/L 08/16/20 08/16/20 Range/Units 04:20 07:35 WBC (3.8-10.6) k/uL RBC 3.69 L (3.80-5.40) m/uL MCV 107.6 H (80.0-100.0) fL RDW 16.5 H (11.5-15.5) % Plt Count 898 H (150-450) k/uL Lymphocytes # (1.0-4.8) k/uL Macrocytosis Marked A D-Dimer (<0.60) mg/L FEU Sodium 132 L (137-145) mmol/L Chloride (98-107) mmol/L BUN 22 H (7-17) mg/dL Glucose 129 H (74-99) mg/dL Magnesium 2.6 H (1.6-2.3) mg/dL AST (14-36) U/L ALT (4-34) U/L TSH (0.465-4.680) mIU/L <Brie Cifuentes - Last Filed: 08/16/20 15:04> Objective - Vital Signs Vital signs: Vital Signs Temp 97.8 F 08/16/20 13:21 Pulse 92 08/16/20 13:21 Resp 18 08/16/20 13:21 BP 140/74 08/16/20 13:21 Pulse Ox 95 08/16/20 13:21 Intake & Output 08/15/20 08/16/20 08/16/20 18:59 06:59 18:59 Weight 68.946 kg 68.946 kg Other: Voiding Method Diaper Incontinent # Voids 1 - Labs CBC & Chem 7: 08/16/20 07:35 08/16/20 04:20 Labs: Abnormal Lab Results - Last 24 Hours (Table) 08/15/20 08/15/20 08/15/20 Range/Units 22:31 22:31 22:31 WBC 11.9 H (3.8-10.6) k/uL RBC (3.80-5.40) m/uL MCV 107.0 H (80.0-100.0) fL RDW 15.9 H (11.5-15.5) % Plt Count 830 H D (150-450) k/uL Lymphocytes # 4.9 H (1.0-4.8) k/uL Macrocytosis Marked A D-Dimer 0.77 H (<0.60) mg/L FEU Sodium 134 L (137-145) mmol/L Chloride 96 L (98-107) mmol/L BUN 27 H (7-17) mg/dL Glucose 118 H (74-99) mg/dL Magnesium 1.2 L (1.6-2.3) mg/dL AST 59 H (14-36) U/L ALT 50 H (4-34) U/L TSH 6.530 H (0.465-4.680) mIU/L 08/16/20 08/16/20 Range/Units 04:20 07:35 WBC (3.8-10.6) k/uL RBC 3.69 L (3.80-5.40) m/uL MCV 107.6 H (80.0-100.0) fL RDW 16.5 H (11.5-15.5) % Plt Count 898 H (150-450) k/uL Lymphocytes # (1.0-4.8) k/uL Macrocytosis Marked A D-Dimer (<0.60) mg/L FEU Sodium 132 L (137-145) mmol/L Chloride (98-107) mmol/L BUN 22 H (7-17) mg/dL Glucose 129 H (74-99) mg/dL Magnesium 2.6 H (1.6-2.3) mg/dL AST (14-36) U/L ALT (4-34) U/L TSH (0.465-4.680) mIU/L Assessment and Plan Assessment: Patient seen and examined independently. Patient was also seen by Robert Willis NP and case was discussed. I am in agreement with subjective, physical exam, assessment and plan as written above and amended below. She states that she s feeling great today, no chest pain, no shortness of breath, no nausea, no vomiting. General: non toxic, no distress, appears at stated age Derm: warm, dry Head: atraumatic, normocephalic, symmetric Eyes: EOMI, no lid lag, anicteric sclera Mouth: no lip lesion, mucus membranes moist Cardiovascular: S1S2 reg, no murmur, positive posterior tibial pulse bilateral, Lungs: Decreased bs bilateral, no rhonchi, no rales , no accessory muscle use Abdominal: soft, nontender to palpation, no guarding, no appreciable organomegaly Psych: Alert, oriented, appropriate affect Thrombocytosis likely secondary to having her Anegrelide not avaible during the last hopsital stay. Anticipate Thrombocytosis will improve with reinitiation. - Chest pain could also be atypical due to thrombocythemia
[2020-08-16] MEDS: ANAGRELIDE 0.5 MG CAP PO SCH ×2 (16:05→20:47)
[2020-08-16] MEDS ORDERED: ASPIRIN 325 MG TAB PO SCH (21:00)
[2020-08-16] MEDS ORDERED: ATORVASTATIN 40 MG TAB PO SCH (21:00)
[2020-08-17] MEDS: HEPARIN SODIUM,PORCINE 5,000 UNIT/ML 1 ML VIAL SQ SCH ×2 (00:36→09:25)
[2020-08-17] MEDS: LEVOTHYROXINE 25 MCG TAB PO SCH (05:41)
[2020-08-17 07:56] VITALS: BP 152/87; PULSE 96; RESP 19; TEMP 97.9
[2020-08-17] MEDS ORDERED: HYDROXYUREA 500 MG CAP PO SCH (09:00)
[2020-08-17] MEDS: SODIUM CHLORIDE 0.9% 1,000 ML IV SCH (09:25)
[2020-08-17] MEDS: amLODIPine 5 MG TAB PO SCH (09:26)
[2020-08-17] MEDS: CEFDINIR 300 MG CAP PO SCH (09:26)
[2020-08-17] MEDS: PANTOPRAZOLE 40 MG TABLET PO SCH (09:26)
[2020-08-17] MEDS: CLOPIDOGREL 75 MG TAB PO SCH (09:26)
[2020-08-17] MEDS: ANAGRELIDE 0.5 MG CAP PO SCH (09:26)
[2020-08-17] MEDS: METOPROLOL TARTRATE 50 MG TAB PO SCH (09:26)
--- NOTE | 2020-08-17 09:38 | P.CRDCN ---
History of Present Illness History of present illness: HISTORY OF PRESENTING ILLNESS This is a pleasant 84-year-old female past medical history significant for hypertension, dyslipidemia, leukemia and recent TIA. She denies prior hist ory of coronary artery disease and does not follow in the office with a social services manager. We have been asked to see in consultation for chest pain. The patient is seen and examined sitting up in bed in no acute distress. She is somewhat of a poor historian. She is able to verbalize that over the weekend she has had multiple episodes of diarrhea and felt overall weak. She states that her grandson brought her into the hospital due to the weakness. She was here last week and diagnosed with urinary tract infection along with a TIA. She was given a course of antibiotics. She states that she thinks she completed the antibiotics but is not 100% positive. She also complains of having chronic ginna rtness of breath. She denies any worsening shortness of breath recently. She denies chest pain, dizziness or palpitations. She was also seen in consultation last week by Dr. Bradley for hypertension and medications were adjusted at that time. At that time she also underwent an echocardiogram revealing preserved LV systolic function with ejection fraction 50-55% with moderate mitral regurgitation. DIAGNOSTICS EKG reveals left bundle branch block, LVH and sinus tachycardia with a heart rate of 132. Telemetry tracings indicate sinus tachycardia. Chest xray reveals a very large hiatal hernia unchanged from previous study, no overt heart failure noted and mild pulmonary fibrosis. Laboratory reviewed, WBC 10.2, hemoglobin 12.4, platelets 898, sodium 132, potassium 4.7, creatinine 0.76, magnesium on admission 1. 2 repeat after supplementation 2.1, d-dimer 0.77, cardiac enzymes negative 3, NT proBNP 242, TSH 6.53. Current cardiac medications include aspirin 325 mg daily, atorvastatin 40 mg daily, Plavix 75 mg daily, Lasix 20 mg daily, Lopressor 75 mg daily and amlodipine 5 mg daily. REVIEW OF SYSTEMS At the time of my exam: CONSTITUTIONAL: Denies fever or chills. CARDIOVASCULAR: Denies chest pain, shortness of breath, orthopnea, PND or palpitations. RESPIRATORY: Denies cough. GASTROINTESTINAL: Complains of diarrhea. Denies abdominal pain, constipation, nausea or vomiting. MUSCULOSKELETAL: Denies myalgias. NEUROLOGIC: Denies numbness, tingling, headacbe or weakness. ENDOCRINE: Denies fatigue, weight change, polydipsia or polyurina. GENITOURINARY: Denies burning, hematuria or urgency with micturation. HEMATOLOGIC: Denies history of anemia or bleeding. PHYSICAL EXAMINATION Blood pressure 152/87 heart rate 96 afebrile and maintaining oxygen saturation on nasal cannula. CONSTITUTIONAL: No apparent distress. HEENT: Head is normocephalic. Pupils are equal, round. Sclerae anicteric. Mucous membranes of the mouth are moist. No JVD. No carotid bruit. CHEST EXAMINATION: Lungs are clear to auscultation. No chest wall tenderness is noted on palpation or with deep breathing. HEART EXAMINATION: Regular rate and rhythm. S1, S2 heard. Systolic ejection murmur at all listening points with radiation to the neck, no gallops or rub. ABDOMEN: Soft, nontender. Positive bowel sounds. EXTREMITIES: 2+ peripheral pulses, no lower extremity edema and no calf tenderness. NEUROLOGIC EXAMINATION: Patient is awake, alert and oriented x3. ASSESSMENT Sinus tachycardia Diarrhea Dehydration Hypomagnesemia Generalized weakness Left bundle branch block Mitral regurgitation History of TIA initiated on Plavix last week Hypertension Dyslipidemia PLAN Continue with IV fluid hydration. Magnesium has been replaced. An acute coronary event has been ruled out. Decrease aspirin to 81 mg daily. No further cardiac testing at this time. Thank you kindly for this consultation. Nurse Practitioner note has been reviewed, I agree with a documented findings and plan of care. Patient was seen and examined. Past Medical History Past Medical History: Blood Disorder, Cancer, CVA/TIA, Hyperlipidemia, Hypertension, Pneumonia, Thyroid Disorder Additional Past Medical History / Comment(s): leukemia, History of Any Multi-Drug Resistant Organisms: None Reported Past Surgical History: Joint Replacement Additional Past Surgical History / Comment(s): left knee replacement, ovarian cysts removed, left cataracts, Past Anesthesia/Blood Transfusion Reactions: No Reported Reaction Past Psychological History: No Psychological Hx Reported Smoking Status: Never smoker Past Alcohol Use History: None Reported Past Drug Use History: None Reported Medications and Allergies Home Medications Medication Instructions Recorded Confirmed Type Anagrelide HCl [Agrylin] 0.5 mg PO BID 11/06/15 08/16/20 History Hydroxyurea [Hydrea] 500 mg PO SUTUTHSA 11/06/15 08/16/20 History Levothyroxine Sodium [Synthroid] 25 mcg PO DAILY 11/06/15 08/16/20 History amLODIPine BESYLATE [Norvasc] 5 mg PO DAILY 11/06/15 08/16/20 History Hydroxyurea 1,000 mg PO MOWEFR 04/18/16 08/16/20 History Omeprazole 20 mg PO DAILY 04/18/16 08/16/20 History Metoprolol Tartrate [Lopressor] 75 mg PO DAILY 09/03/17 08/16/20 History Aspirin EC [Ecotrin] 325 mg PO HS 08/09/20 08/16/20 History Furosemide [Lasix] 20 mg PO DAILY 08/09/20 08/16/20 History Vitamin A Red 1 cap PO BID 08/09/20 08/16/20 History Vitamin B Complex 1 cap PO DAILY 08/09/20 08/16/20 History Atorvastatin [Lipitor] 40 mg PO HS 30 Days #30 tab 08/13/20 08/16/20 Rx Cefpodoxime Proxetil [Vantin] 100 mg PO Q12HR 3 Days #6 tab 08/13/20 08/16/20 Rx Clopidogrel [Plavix] 75 mg PO DAILY 21 Days #30 tab 08/13/20 08/16/20 Rx Calcium Carbonate/Vitamin D3 1 tab PO DAILY 08/16/20 08/16/20 History [Calcium 500 mg-Vit D3 5 mcg (200 Unit)] Allergies Allergy/AdvReac Type Severity Reaction Status Date / Time Sulfa (Sulfonamide Allergy Rash/Hives Verified 08/16/20 08:48 Antibiotics) Physical Exam Vitals: Vital Signs Temp Pulse Pulse Pulse Resp BP BP 08/17/20 08:51 08/17/20 07:00 97.9 F 96 19 152/87 08/17/20 01:35 98.0 F 86 18 124/72 08/17/20 01:32 100 18 08/16/20 20:39 100 08/16/20 19:20 120 H 18 08/16/20 19:10 97.8 F 125 H 18 155/70 08/16/20 13:21 97.8 F 92 18 140/74 08/16/20 11:20 98.2 F 08/16/20 10:42 98.1 F 94 16 155/76 08/16/20 10:12 88 16 08/16/20 10:10 88 16 135/94 Pulse Ox 08/17/20 08:51 99 08/17/20 07:00 99 08/17/20 01:35 96 08/17/20 01:32 08/16/20 20:39 08/16/20 19:20 08/16/20 19:10 08/16/20 13:21 95 08/16/20 11:20 08/16/20 10:42 100 08/16/20 10:12 08/16/20 10:10 96 Intake and Output 08/16/20 08/17/20 08/17/20 22:59 06:59 14:59 Intake Total 240 Output Total 400 Balance 240 -400 Intake: Oral 240 Output: Urine 400 Other: Voiding Method Diaper Diaper Diaper Incontinent Incontinent Incontinent # Voids 3 2 # Bowel Movements 1 Results 08/16/20 07:35 08/16/20 04:20 Current Medications Generic Name Dose Route Start Last Admin Trade Name Scottq PRN Reason Stop Dose Admin Amlodipine Besylate 5 mg 08/16/20 09:00 08/16/20 08:25 Amlodipine 5 Mg Tab PO 5 mg DAILY DAJA Administration Anagrelide HCl 0.5 mg 08/16/20 14:00 08/16/20 20:47 Anagrelide 0.5 Mg Cap PO 0.5 mg BID DAJA Administration Aspirin 81 mg 08/17/20 21:00 Aspirin 81 Mg PO HS DAJA Atorvastatin Calcium 40 mg 08/16/20 21:00 08/16/20 20:47 Atorvastatin 40 Mg Tab PO 40 mg HS DAJA Administration Cefdinir 300 mg 08/16/20 09:00 08/16/20 20:47 Cefdinir 300 Mg Cap PO 300 mg Q12H DAJA Administration Clopidogrel Bisulfate 75 mg 08/16/20 09:00 08/16/20 08:25 Clopidogrel 75 Mg Tab PO 75 mg DAILY DAJA Administration Heparin Sodium (Porcine) 5,000 unit 08/16/20 08:00 08/17/20 00:36 Heparin Sodium,Porcine 5,000 Unit/Ml 1 Ml Vial SQ 5,000 unit Q8HR DAJA Administration Hydroxyurea 500 mg 08/16/20 09:00 08/16/20 10:07 Hydroxyurea 500 Mg Cap PO 500 mg SuTuThSa@0900 DAJA Administration Hydroxyurea 1,000 mg 08/17/20 09:00 Hydroxyurea 500 Mg Cap PO MoWeFr@0900 [facility] Sodium Chloride 1,000 mls @ 100 mls/hr 08/16/20 00:45 08/16/20 20:50 Saline 0.9% IV 100 mls/hr .Q10H DAJA Administration Levothyroxine Sodium 25 mcg 08/16/20 06:30 08/17/20 05:41 Levothyroxine 25 Mcg Tab PO 25 mcg DAILY@0630 DAJA Administration Metoprolol Tartrate 50 mg 08/16/20 09:00 08/16/20 19:30 Metoprolol Tartrate 50 Mg Tab PO 50 mg BID DAJA Administration Nitroglycerin 0.4 mg 08/16/20 00:34 Nitroglycerin Sl Tabs 0.4 Mg Tab SUBLINGUAL Q5M PRN Chest Pain Pantoprazole Sodium 40 mg 08/16/20 09:00 08/16/20 08:25 Pantoprazole 40 Mg Tablet PO 40 mg DAILY DAJA Administration Intake and Output 08/16/20 08/17/20 08/17/20 22:59 06:59 14:59 Intake Total 240 Output Total 400 Balance 240 -400 Intake: Oral 240 Output: Urine 400 Other: Voiding Method Diaper Diaper Diaper Incontinent Incontinent Incontinent # Voids 3 2 # Bowel Movements 1 08/16/20 07:35 08/16/20 04:20
[2020-08-17 09:50] LABS: African American GFR (CKD) 77.9 (60.0-200.0); Anion Gap 5.3 mmol/L (4.00-12.00); BUN/Creat Ratio 18.75 Ratio (12.00-20.00); Calcium 9.2 mg/dL (8.7-10.3); Carbon Dioxide 28.7 mmol/L (21.6-31.8); Chol/HDL Ratio 2.87; LDL Cholesterol,Calculated 44.2 mg/dL (0.0-131.0); Non-African American GFR(CKD) 67.2 (60.0-200.0); Potassium 4.8 mmol/L (3.5-5.5); VLDL Calculation 26.8 mg/dL (5.00-40.00)
[2020-08-17 10:05] LABS: HCT 35.4 % (37.2-46.3); HGB 11.7 g/dL (12.0-15.0); MCH 34.5 pg (27.0-32.0); MCHC 33.1 g/dL (32.0-37.0); MCV 104.4 fL (80.0-97.0); Mean Platelet Volume 10.4 fL (9.5-12.2); Platelet Count 827 X 10*3/uL (140-440); RBC 3.39 X 10*6/uL (4.10-5.20); RDW 15.9 % (11.5-14.5); WBC 10.34 X 10*3/uL (4.50-10.00)
[2020-08-17 10:06] LABS: Crenated RBC 2+; Macrocytosis (M) 2+
--- NOTE | 2020-08-17 12:12 | P.DS ---
<Robert Willis - Last Filed: 08/17/20 11:57> Providers Expected date of discharge: 08/17/20 Hospital Course: Discharge Diagnosis: Chest pain accompanied by shortness of breath, likely secondary to Thrombocytosis resulting after patient missed medications for treatment of her chronic thrombocythemia Sinus tachycardia, likely secondary to missed doses of medication, metoprolol; medications resumed and sinus tachycardia resolved Hypomagnesemia, resolved Thrombocytosis, resulting after patient missed medications for treatment of her chronic thrombocythemia, showing improvement once patient resumed medication management. Prerenal Azotemia, resolved Hypothyroidism with Elevated TSH Hypertension, stable Hyperlipidemia Hospital Course: Patient is an 84-year-old female with a past medical history of hypertension, hyperlipidemia, and hypothyroidism. She was recently admitted to our facility from 08/09/20 through 08/13/20 where she underwent treatment for a TIA, uncomplicated UTI with sepsis upon presentation, acute metabolic encephalopathy, and an elevated troponin. Patient reports she has felt great since discharge but suddenly awoke experiencing some substernal chest pressure and discomfort accompanied by shortness of breath. Patient states this pain was mild retaining approximately 4 out of 10 and described it as pressure as though someone was pushing hard in the middle of her chest. She denies feeling any palpitations, lightheadedness, dizziness, nausea, or experiencing any diaphoresis with this event. Patient was evaluated in the emergency department and admitted under our services for further evaluation of patient's chest pain and shortness breath. Labs did reveal prerenal azotemia with a BUN of 27, thrombocytosis with a platelet count of 898, significant hypomagnesemia with magnesium of 1.2, Her chest x-ray was completed revealing some mild pulmonary fibrosis with an unchanged large hiatal hernia, No signs of pneumonia, effusions, or congestive heart failure were noted. An EKG was obtained revealing sinus tachycardia at [address] depression and T-wave inversion in leads 1, aVL, V5, and V6 which is unchanged from previous EKGs with the exception of the rate. Troponins 3 sets negative. Patient had recent echocardiogram on 08/10/20 revealing preserved ejection fraction of 50-55% and moderate mitral regurgitation. On day 2 of hospitalization, patient reported that she did have a confession to make and that she missed doses of her medication because she was having diarrhea at home over the past 3 days and did not take any of her medications since being discharged home on the 08/13/20. Pt states that her diarrhea has stopped and that she has not had any further episodes of chest pain or shortness of breath since arrival to our facility. Chest pain accompanied by shortness of breath was likely secondary to the thrombocytosis resulting after patient missed her medications for treatment of her chronic thrombocythemia. Sinus Tachycardia likely secondary to patient's missed doses of metoprolol. Patient's medications were resumed upon admission. Hypomagnesemia and prerenal azotemia resolved. Sinus tachycardia has resolved. Thrombocytosis has improved with platelet high of 898,000 now down to 827,000. Pt was seen and evaluated by cardiology whom recommended decreasing aspirin to 81 mg and clearing pt from cardiac standpoint for discharge home. Patient to be evaluated by PT/OT then discharged back home where she is currently receiving [facility]. Patient educated on the importance of taking medications as directed and not missing any doses. Patient to follow-up with on Monday as scheduled. Physical exam: Patient was seen and fully evaluated at the bedside. She was sitting up in bed. She reports that she is feeling great today and confessed that she was not taking her medications as she previously reported because she was experiencing diarrhea over a 3 day period. She continues to deny having any further episodes of chest pain/pressure or any shortness of breath. She also denies having any other complaints or concerns at this time including a headache, lightheadedness, dizziness, changes in her vision or hearing, changes in her difficulties with speech or memory, palpitations, abdominal pain, nausea, vomiting, changes in or difficulties with urination or bowel function, and denies having any numbness/tingling/weakness in extremities. General: non toxic, no distress, appears at stated age Derm: warm, dry Head: atraumatic, normocephalic, symmetric Eyes: EOMI, no lid lag, anicteric sclera Mouth: no lip lesion, mucus membranes moist Cardiovascular: S1S2 reg, Murmur present, positive posterior tibial pulses bilaterally, cap refill < 2 seconds. Lungs: Respirations even regular and unlabored on room air. Lungs CTA bilaterally, no rhonchi, no rales, no wheezes and no accessory muscle usage. Abdominal: soft, nontender to palpation, no guarding, no appreciable organomeg mesfin Ext: no gross muscle atrophy, no lower extremity edema. No contractures. Neuro: GCS 15. Speech clear. CN II-XI grossly intact, no focal neuro deficits Psych: Alert, oriented, appropriate affect. A total of 45 minutes of time were spent preparing this complex discharge summary. Patient Condition at Discharge: Good Plan - Discharge Summary Discharge Rx Participant: Yes New Discharge Prescriptions: New Aspirin 81 mg PO HS chew Continue amLODIPine BESYLATE [Norvasc] 5 mg PO DAILY Hydroxyurea [Hydrea] 500 mg PO SUTUTHSA Anagrelide HCl [Agrylin] 0.5 mg PO BID Hydroxyurea 1,000 mg PO MOWEFR Metoprolol Tartrate [Lopressor] 75 mg PO DAILY Atorvastatin [Lipitor] 40 mg PO HS 30 Days #30 tab Clopidogrel [Plavix] 75 mg PO DAILY 21 Days #30 tab Cefpodoxime Proxetil [Vantin] 100 mg PO Q12HR 3 Days #6 tab Discontinued Aspirin EC [Ecotrin] 325 mg PO HS No Action Levothyroxine Sodium [Synthroid] 25 mcg PO DAILY Omeprazole 20 mg PO DAILY Vitamin B Complex 1 cap PO DAILY Vitamin A Red 1 cap PO BID Furosemide [Lasix] 20 mg PO DAILY Calcium Carbonate/Vitamin D3 [Calcium 500 mg-Vit D3 5 mcg (200 Unit)] 1 tab PO DAILY Discharge Medication List Anagrelide HCl [Agrylin] 0.5 mg PO BID 11/06/15 [History] Hydroxyurea [Hydrea] 500 mg PO SUTUTHSA 11/06/15 [History] Levothyroxine Sodium [Synthroid] 25 mcg PO DAILY 11/06/15 [History] amLODIPine BESYLATE [Norvasc] 5 mg PO DAILY 11/06/15 [History] Hydroxyurea 1,000 mg PO MOWEFR 04/18/16 [History] Omeprazole 20 mg PO DAILY 04/18/16 [History] Metoprolol Tartrate [Lopressor] 75 mg PO DAILY 09/03/17 [History] Furosemide [Lasix] 20 mg PO DAILY 08/09/20 [History] Vitamin A Red 1 cap PO BID 08/09/20 [History] Vitamin B Complex 1 cap PO DAILY 08/09/20 [History] Atorvastatin [Lipitor] 40 mg PO HS 30 Days #30 tab 08/13/20 [Rx] Cefpodoxime Proxetil [Vantin] 100 mg PO Q12HR 3 Days #6 tab 08/13/20 [Rx] Clopidogrel [Plavix] 75 mg PO DAILY 21 Days #30 tab 08/13/20 [Rx] Calcium Carbonate/Vitamin D3 [Calcium 500 mg-Vit D3 5 mcg (200 Unit)] 1 tab PO DAILY 08/16/20 [History] Aspirin 81 mg PO HS chew 08/17/20 [Rx] Follow up Appointment(s)/Referral(s): Barrington Rivera MD [Primary Care Provider] - 08/19/20 1:45 pm Barrington Hernandez MD [STAFF PHYSICIAN] - 2 Weeks (Office will call with appointment.) Patient Instructions/Handouts: Heart Palpitations (ED) Activity/Diet/Wound Care/Special Instructions: Activity: As tolerated Diet: Continue a heart healthy diet Special Instructions: Please remember that it is very important to take her medications exactly as they are prescribed. Missing doses can lead to serious health conditions up to and including . You have an appointment with Dr. Phelps tomorrow and Dr. Rivera on Monday, July 22 at 1:45 p.m. Thank you for allowing us to participate in your care!! It was a an absolute pleasure having you for a patient. <Brie Cifuentes A - Last Filed: 08/17/20 13:14> Providers Date of admission: 08/16/20 00:35 Attending physician: Fahad Isaac MD Consults: 08/16/20 13:22 Consult Physician Routine Consulting Provider: Barrington Hernandez Consult Reason/Comments: pt awoken with substernal chest pressure and SOB Do you want consulting provider notified?: Yes Primary care physician: Barrington Rivera MD Hospital Course: Patient seen and examined independently. Patient was also seen by Robert Willis NP and case was discussed. I am in agreement with discharge diagnosis, hospital course, and physical exam as written above and amended below. He is feeling much better. States she has been up and walking on the room without any significant chest pain or unusual shortness of breath. She reports that she has an appointment with Dr. Phelps tomorrow and Dr. Rivera any on Monday. General: non toxic, no distress, appears at stated age Derm: warm, dry, multiple areas of ecchymosis Head: atraumatic, normocephalic, symmetric Eyes: EOMI, no lid lag, anicteric sclera Mouth: no lip lesion, mucus membranes moist Cardiovascular: S1S2 reg, no murmur, positive posterior tibial pulse bilateral, Lungs: CTA bilateral, no rhonchi, no rales , no accessory muscle use Abdominal: soft, nontender to palpation, no guarding, no appreciable organomegaly Ext: no gross muscle atrophy, no edema, no contractures Neuro: CN II-XI grossly intact, no focal neuro deficits Psych: Alert, oriented, appropriate affect
[2020-08-17] MEDS ORDERED: ASPIRIN 81 MG PO SCH (21:00)
== END 2020-08-17 14:25 | disposition home or self-care (01) ==
LOC: EC 22:04 → 1SOBS 08-16 00:35 → 6NMEDSUR 08-16 03:19
PROVIDERS: ADMIT Internal Medicine; ATTEND Internal Medicine
DX: R07.89 Other chest pain (principal); R06.02 Shortness of breath; R00.2 Palpitations; I49.9 Cardiac arrhythmia, unspecified; R00.0 Tachycardia, unspecified; R19.7 Diarrhea, unspecified; T50.996A Underdosing of other drugs, medicaments and biological substances, initial encounter; T44.7X6A Underdosing of beta-adrenoreceptor antagonists, initial encounter; Z91.14 Patient's other noncompliance with medication regimen; E86.0 Dehydration; E78.5 Hyperlipidemia, unspecified; I10 Essential (primary) hypertension; R79.89 Other specified abnormal findings of blood chemistry; E03.9 Hypothyroidism, unspecified; R60.0 Localized edema; E83.42 Hypomagnesemia; D47.3 Essential (hemorrhagic) thrombocythemia; R94.6 Abnormal results of thyroid function studies; I44.7 Left bundle-branch block, unspecified; I34.0 Nonrheumatic mitral (valve) insufficiency; Z79.890 Hormone replacement therapy; Z79.899 Other long term (current) drug therapy; Z79.82 Long term (current) use of aspirin; Z79.02 Long term (current) use of antithrombotics/antiplatelets; Z88.2 Allergy status to sulfonamides; Z86.73 Personal history of transient ischemic attack (TIA), and cerebral infarction without residual deficits; Z87.01 Personal history of pneumonia (recurrent); Z87.440 Personal history of urinary (tract) infections; Z85.6 Personal history of leukemia; Z96.652 Presence of left artificial knee joint; Z66 Do not resuscitate; R32 Unspecified urinary incontinence; Z20.822 Contact with and (suspected) exposure to COVID-19
CPT/HCPCS: 96372 ×3; 93005 ×2; 96361 ×2; 96365; 96366; 96375; 99285; 36415; 94760; 97161; 97165; 85379; 83880; 80061; 80053; 80048 ×2; 82550; 83605; 83735 ×2; 84100; 84443; 84484 ×2; 85025 ×2; 85027; 85610; 85730; 81003; 87635; 71046; G0378 ×3; S0176 ×2; J1644 ×2; J3475

== ENCOUNTER 2020-11-24 09:24 | Emergency (ER) | payer MEDICARE, BC ==
--- NOTE | 2020-11-24 09:42 | ED ---
General Adult HPI - General Chief complaint: Recheck/Abnormal Lab/Rx Stated complaint: lab recheck-sent by PCP Time Seen by Provider: 11/24/20 09:29 Source: patient, RN notes reviewed Mode of arrival: wheelchair Limitations: no limitations - History of Present Illness Initial comments: Patient is a pleasant 84-year-old female presenting to the emergency department with abnormal lab work. Patient states she feels fine and has no complaints. Patient states she was called secondary to blood work done yesterday with concerns for high potassium level. Family also adds that there was concern for high white blood cell count level. Patient states elevated white blood cell count level may be normal for her. Patient denies any concerns for infection. No urinary problems. No cough or dyspnea. No abdominal pain. No rash. Patient does take Lasix however does not take supplemental potassium. - Related Data Home Medications Medication Instructions Recorded Confirmed Anagrelide HCl [Agrylin] 0.5 mg PO BID 11/06/15 11/24/20 Hydroxyurea [Hydrea] 500 mg PO SUTUTHSA 11/06/15 11/24/20 Levothyroxine Sodium [Synthroid] 25 mcg PO DAILY@0600 11/06/15 11/24/20 amLODIPine BESYLATE [Norvasc] 5 mg PO DAILY 11/06/15 11/24/20 Hydroxyurea 1,000 mg PO MOWEFR 04/18/16 11/24/20 Omeprazole 20 mg PO DAILY@0600 04/18/16 11/24/20 Metoprolol Tartrate [Lopressor] 75 mg PO DAILY 09/03/17 11/24/20 Furosemide [Lasix] 20 mg PO DAILY 08/09/20 11/24/20 Vitamin A Red 1 cap PO BID 08/09/20 11/24/20 Vitamin B Complex 1 cap PO DAILY 08/09/20 11/24/20 Calcium Carbonate/Vitamin D3 1 tab PO DAILY 08/16/20 11/24/20 [Calcium 500 mg-Vit D3 5 mcg (200 Unit)] Furosemide [Lasix] 20 mg PO ONCE PRN 11/24/20 11/24/20 Lovastatin [Altoprev] 20 mg PO HS 11/24/20 11/24/20 Previous Rx's Medication Instructions Recorded Aspirin 81 mg PO HS chew 08/17/20 Allergies Allergy/AdvReac Type Severity Reaction Status Date / Time Sulfa (Sulfonamide Allergy Rash/Hives Verified 11/24/20 11:41 Antibiotics) Review of Systems ROS Statement: Those systems with pertinent positive or pertinent negative responses have been documented in the HPI. ROS Other: All systems not noted in ROS Statement are negative. Constitutional: Denies: fever Eyes: Denies: eye pain ENT: Denies: ear pain Respiratory: Denies: cough Cardiovascular: Denies: chest pain Endocrine: Denies: fatigue Gastrointestinal: Denies: abdominal pain Genitourinary: Denies: urgency, dysuria Musculoskeletal: Denies: back pain Skin: Denies: rash Neurological: Denies: weakness Past Medical History Past Medical History: Blood Disorder, Cancer, CVA/TIA, Hyperlipidemia, Hypertension, Pneumonia, Thyroid Disorder Additional Past Medical History / Comment(s): leukemia, History of Any Multi-Drug Resistant Organisms: None Reported Past Surgical History: Joint Replacement Additional Past Surgical History / Comment(s): left knee replacement, ovarian cysts removed, left cataracts, Past Anesthesia/Blood Transfusion Reactions: No Reported Reaction Past Psychological History: No Psychological Hx Reported Smoking Status: Never smoker Past Alcohol Use History: None Reported Past Drug Use History: None Reported General Exam Limitations: no limitations General appearance: alert, in no apparent distress Head exam: Present: normocephalic Eye exam: Present: normal appearance Neck exam: Present: normal inspection Respiratory exam: Present: normal lung sounds bilaterally Cardiovascular Exam: Present: regular rate, normal rhythm GI/Abdominal exam: Present: soft. Absent: tenderness Extremities exam: Present: normal inspection Neurological exam: Present: alert Psychiatric exam: Present: normal affect, normal mood Skin exam: Present: normal color Course Vital Signs 11/24/20 09:25 Temperature 97.6 F Pulse Rate 56 L Respiratory 18 Rate Blood Pressure 147/74 O2 Sat by Pulse 98 Oximetry EKG Findings - EKG Comments: EKG Findings:: Normal sinus rhythm with rate of 62. MN 176. QRS 140. QTc 460. QTC 466. Normal axis. Left bundle branch block. Nonspecific ST-T. Medical Decision Making - Medical Decision Making Patient reevaluated and resting comfortably in bed. Case was discussed with Dr. Giraldo, covering for Dr. Hutchinson who is comfortable and agreeable with IV fluids and discharge. He does request a small dose of Kayexalate prior to Discharge. Patient and family are updated on results and need for follow-up as well as repeat blood work within the next week. - Lab Data Result diagrams: 11/24/20 10:18 11/24/20 10:18 Lab Results 11/24/20 11/24/20 11/24/20 Range/Units 10:18 10:18 10:18 WBC 11.0 H (3.8-10.6) k/uL RBC 3.68 L (3.80-5.40) m/uL Hgb 12.7 (11.4-16.0) gm/dL Hct 39.9 (34.0-46.0) % MCV 108.4 H (80.0-100.0) fL MCH 34.4 (25.0-35.0) pg MCHC 31.8 (31.0-37.0) g/dL RDW 16.1 H (11.5-15.5) % Plt Count 404 (150-450) k/uL MPV 11.5 Neutrophils % 51 % Lymphocytes % 41 % Monocytes % 3 % Eosinophils % 2 % Basophils % 1 % Neutrophils # 5.6 (1.3-7.7) k/uL Lymphocytes # 4.5 (1.0-4.8) k/uL Monocytes # 0.3 (0-1.0) k/uL Eosinophils # 0.2 (0-0.7) k/uL Basophils # 0.1 (0-0.2) k/uL Manual Slide Review Performed Large Platelets Present Poikilocytosis (manual Present Anisocytosis Slight Macrocytosis Marked A PT 10.4 (9.0-12.0) sec INR 1.0 (<1.2) APTT 26.7 (22.0-30.0) sec Sodium 128 L (137-145) mmol/L Potassium 5.3 H (3.5-5.1) mmol/L Chloride 94 L (98-107) mmol/L Carbon Dioxide 26 (22-30) mmol/L Anion Gap 8 mmol/L BUN 21 H (7-17) mg/dL Creatinine 0.74 (0.52-1.04) mg/dL Est GFR (CKD-EPI)AfAm 86 (>60 ml/min/1.73 sqM) Est GFR (CKD-EPI)NonAf 75 (>60 ml/min/1.73 sqM) Glucose 106 H (74-99) mg/dL Calcium 9.6 (8.4-10.2) mg/dL Total Bilirubin 0.2 (0.2-1.3) mg/dL AST 32 (14-36) U/L ALT 13 (4-34) U/L Alkaline Phosphatase 93 (38-126) U/L Total Protein 7.2 (6.3-8.2) g/dL Albumin 4.4 (3.5-5.0) g/dL - Radiology Data Radiology results: image reviewed (Chest x-ray reveals no acute process. Previous x-ray reviewed as well.) Disposition Clinical Impression: Hyponatremia, Hyperkalemia Disposition: HOME SELF-CARE Condition: Stable Instructions (If sedation given, give patient instructions): Hyponatremia (ED) Additional Instructions: Please do follow-up with your primary care physician in the next couple days for recheck. You will need to have blood work rechecked in less than one week. Return for weakness, decreased oral intake, worsening symptoms or other concerns or fevers. Is patient prescribed a controlled substance at d/c from ED?: No Referrals: Barrington Rivera MD [Primary Care Provider] - 1-2 days Time of Disposition: 12:03
--- NOTE | 2020-11-24 10:11 | XR ---
EXAMINATION TYPE: XR chest 2V DATE OF EXAM: 11/24/2020 COMPARISON: 08/15/2020 HISTORY: Short of breath, hypertension TECHNIQUE: Frontal and lateral views of the chest are obtained. FINDINGS: There is no focal air space opacity, pleural effusion, or pneumothorax seen. The cardiac silhouette size is within normal limits. The osseous structures are intact. Hiatal hernia is unchan ged. IMPRESSION: No acute cardiopulmonary process.
[2020-11-24 10:52] LABS: Albumin 4.4 g/dL (3.5-5.0); Calcium 9.6 mg/dL (8.4-10.2); Potassium 5.3 mmol/L (3.5-5.1); Total Bilirubin 0.2 mg/dL (0.2-1.3); Total Protein 7.2 g/dL (6.3-8.2)
[2020-11-24 10:54] LABS: Partial Thromboplastin Time 26.7 sec (22.0-30.0); Prothrombin Time 10.4 sec (9.0-12.0)
[2020-11-24 11:06] LABS: Anisocytosis Slight; Basophils # (A) 0.1 k/uL (0-0.2); Basophils % (A) 1 %; Eosinophils # (A) 0.2 k/uL (0-0.7); Eosinophils % (A) 2 %; HCT 39.9 % (34.0-46.0); HGB 12.7 gm/dL (11.4-16.0); Lymphocytes # (A) 4.5 k/uL (1.0-4.8); Lymphocytes % (A) 41 %; MCH 34.4 pg (25.0-35.0); MCHC 31.8 g/dL (31.0-37.0); MCV 108.4 fL (80.0-100.0); Macrocytosis Marked; Mean Platelet Volume 11.5; Monocytes # (A) 0.3 k/uL (0-1.0); Monocytes % (A) 3 %; Neutrophils # (A) 5.6 k/uL (1.3-7.7); Neutrophils % (A) 51 %; Platelet Count 404 k/uL (150-450); RBC 3.68 m/uL (3.80-5.40); RDW 16.1 % (11.5-15.5)
[2020-11-24] MEDS ORDERED: SODIUM CHLORIDE 0.9% 500 ML 500 ML IV STA (11:22)
[2020-11-24 11:31] LABS: Large Platelets Present; Poikilocytosis (M) Present
[2020-11-24] MEDS ORDERED: SODIUM POLYSTYRENE SULFONATE 15 GM/60 ML BOTTLE PO ONE (12:00)
[2020-11-24 12:29] LABS: Appearance,Urine Clear (Clear); Bilirubin,Urine Negative (Negative); Blood,Urine Negative (Negative); Color,Urine Light Yellow; Glucose,Urine (UA) Negative (Negative); Ketones,Urine Negative (Negative); Leukocyte Esterase,Urine Negative (Negative); Nitrite,Urine Negative (Negative); Protein,Urine Negative (Negative); Specific Gravity,Urine 1.007 (1.001-1.035); Urobilinogen,Urine <2.0 mg/dL (<2.0)
[2020-11-24 12:52] VITALS: BP 138/70; PULSE 86; RESP 16; TEMP 98
== END 2020-11-24 12:54 | disposition home or self-care (01) ==
LOC: EC 09:24
DX: E87.1 Hypo-osmolality and hyponatremia (principal); E87.5 Hyperkalemia; E78.5 Hyperlipidemia, unspecified; Z86.73 Personal history of transient ischemic attack (TIA), and cerebral infarction without residual deficits; Z79.82 Long term (current) use of aspirin; Z79.899 Other long term (current) drug therapy
CPT/HCPCS: 36415; 71046; 80053; 81003; 85025; 85610; 85730; 87040; 93005; 96360; 99284

== ENCOUNTER 2021-03-01 06:53 | Inpatient (IN) | payer MEDICARE, BC ==
[2021-03-01] MEDS ORDERED: SODIUM CHLORIDE 0.9% 1,000 ML IV STA (07:17)
--- NOTE | 2021-03-01 07:22 | ED ---
General Adult HPI - General Chief complaint: Abdominal Pain Stated complaint: Back Pain Time Seen by Provider: 03/01/21 07:12 Source: patient, family, RN notes reviewed Mode of arrival: wheelchair Limitations: no limitations - History of Present Illness Initial comments: This is an 85-year-old female presents emergency department with family chief complaint of right-sided rib pain, abdominal pain patient states that a week she tripped causing her fall into a coffee table she states she fell onto her right side and there ribs states she had pain ever sent. She's been using heating pad which cause burn to her lower back. She states her tetanus is up-to-date. Patient denies any head injury no loss conscious though blood thinners noted. Patient states she's also been feeling sick to her stomach sentences and states that she's had decreased urine output, constipation. Patient denies any fevers or chills no cough or cold-like symptoms - Related Data Home Medications Medication Instructions Recorded Confirmed Anagrelide HCl [Agrylin] 0.5 mg PO BID 11/06/15 03/01/21 Hydroxyurea [Hydrea] 500 mg PO SUTUTHSA 11/06/15 03/01/21 Levothyroxine Sodium [Synthroid] 25 mcg PO DAILY@0600 11/06/15 03/01/21 amLODIPine BESYLATE [Norvasc] 5 mg PO DAILY 11/06/15 03/01/21 Hydroxyurea 1,000 mg PO MOWEFR 04/18/16 03/01/21 Omeprazole 20 mg PO DAILY@0600 04/18/16 03/01/21 Metoprolol Tartrate [Lopressor] 75 mg PO BID 09/03/17 03/01/21 Furosemide [Lasix] 20 mg PO DAILY 08/09/20 03/01/21 Vitamin A Red 1 cap PO BID 08/09/20 03/01/21 Vitamin B Complex 1 cap PO DAILY 08/09/20 03/01/21 Calcium Carbonate/Vitamin D3 1 tab PO DAILY 08/16/20 03/01/21 [Calcium 500 mg-Vit D3 5 mcg (200 Unit)] Lovastatin [Altoprev] 20 mg PO HS 11/24/20 03/01/21 Meclizine [Antivert] 25 mg PO TID PRN 03/01/21 03/01/21 Previous Rx's Medication Instructions Recorded Aspirin 81 mg PO HS chew 08/17/20 Allergies Allergy/AdvReac Type Severity Reaction Status Date / Time Sulfa (Sulfonamide Allergy Rash/Hives Verified 03/01/21 09:00 Antibiotics) Review of Systems ROS Statement: Those systems with pertinent positive or pertinent negative responses have been documented in the HPI. ROS Other: All systems not noted in ROS Statement are negative. Past Medical History Past Medical History: Blood Disorder, Cancer, CVA/TIA, Hyperlipidemia, Hypertension, Pneumonia, Thyroid Disorder Additional Past Medical History / Comment(s): leukemia History of Any Multi-Drug Resistant Organisms: None Reported Past Surgical History: Joint Replacement Additional Past Surgical History / Comment(s): left knee replacement, ovarian cysts removed, left cataracts, Past Anesthesia/Blood Transfusion Reactions: No Reported Reaction Past Psychological History: No Psychological Hx Reported Smoking Status: Never smoker Past Alcohol Use History: None Reported Past Drug Use History: None Reported General Exam General appearance: alert, in no apparent distress Head exam: Present: atraumatic, normocephalic, normal inspection Eye exam: Present: normal appearance, PERRL, EOMI. Absent: scleral icterus, conjunctival injection, periorbital swelling ENT exam: Present: normal exam, normal oropharynx, mucous membranes moist Neck exam: Present: normal inspection, full ROM. Absent: tenderness, meningismus, lymphadenopathy Respiratory exam: Present: normal lung sounds bilaterally, chest wall tenderness (Right anterior lateral). Absent: respiratory distress, wheezes, rales, rhonchi, stridor Cardiovascular Exam: Present: regular rate, normal rhythm, normal heart sounds. Absent: systolic murmur, diastolic murmur, rubs, gallop, clicks GI/Abdominal exam: Present: soft, normal bowel sounds. Absent: distended, tenderness, guarding, rebound, rigid Back exam: Absent: normal inspection (To areas of second-degree burn on right lower back) Neurological exam: Present: alert, oriented X3 Skin exam: Present: warm, dry, intact, normal color. Absent: rash Course Vital Signs 03/01/21 06:55 Temperature 98 F Pulse Rate 94 Respiratory 20 Rate Blood Pressure 178/90 O2 Sat by Pulse 97 Oximetry Medical Decision Making - Medical Decision Making 85-year-old presented for fall, does not feel well nausea and unable to eat, rib pain. Patient's found to have a benign third fracture with no pneumothorax. Sodium is 122. I did discuss case with trauma Dr. Wolf who consult for the patient patient be admitted likely for hyponatremia patient will have medicine admission. - Lab Data Result diagrams: 03/01/21 07:30 03/01/21 07:30 Lab Results 03/01/21 03/01/21 03/01/21 Range/Units 07:30 07:30 08:16 WBC 11.7 H (3.8-10.6) k/uL RBC 3.97 (3.80-5.40) m/uL Hgb 14.1 (11.4-16.0) gm/dL Hct 40.6 (34.0-46.0) % MCV 102.3 H (80.0-100.0) fL MCH 35.5 H (25.0-35.0) pg MCHC 34.7 (31.0-37.0) g/dL RDW 15.6 H (11.5-15.5) % Plt Count 335 (150-450) k/uL MPV 12.0 Neutrophils % 47 % Lymphocytes % 46 % Monocytes % 3 % Eosinophils % 2 % Basophils % 0 % Neutrophils # 5.5 (1.3-7.7) k/uL Lymphocytes # 5.4 H (1.0-4.8) k/uL Monocytes # 0.3 (0-1.0) k/uL Eosinophils # 0.2 (0-0.7) k/uL Basophils # 0.0 (0-0.2) k/uL Manual Slide Review Performed Large Platelets Present Polychromasia Present Poikilocytosis (manual Present Anisocytosis (manual) Present Macrocytosis Slight Sodium 122 L (137-145) mmol/L Potassium 4.2 (3.5-5.1) mmol/L Chloride 89 L (98-107) mmol/L Carbon Dioxide 23 (22-30) mmol/L Anion Gap 10 mmol/L BUN 16 (7-17) mg/dL Creatinine 0.61 (0.52-1.04) mg/dL Est GFR (CKD-EPI)AfAm >90 (>60 ml/min/1.73 sqM) Est GFR (CKD-EPI)NonAf 82 (>60 ml/min/1.73 sqM) Glucose 108 H (74-99) mg/dL Calcium 9.6 (8.4-10.2) mg/dL Total Bilirubin 0.6 (0.2-1.3) mg/dL AST 35 (14-36) U/L ALT 12 (4-34) U/L Alkaline Phosphatase 97 (38-126) U/L Total Protein 7.3 (6.3-8.2) g/dL Albumin 4.2 (3.5-5.0) g/dL Amylase 47 (30-110) U/L Lipase 48 (23-300) U/L Urine Color Light Yellow Urine Appearance Clear (Clear) Urine pH 6.5 (5.0-8.0) Ur Specific [place] 1.009 (1.001-1.035) Urine Protein Trace H (Negative) Urine Glucose (UA) Negative (Negative) Urine Ketones Negative (Negative) Urine Blood Negative (Negative) Urine Nitrite Negative (Negative) Urine Bilirubin Negative (Negative) Urine Urobilinogen <2.0 (<2.0) mg/dL Ur Leukocyte Esterase Negative (Negative) Disposition Clinical Impression: Hyponatremia, Nausea, Fracture of rib of right side Disposition: ADMITTED IP TO THIS [facility] Condition: Fair Referrals: Barrington Rivera MD [Primary Care Provider] - 1-2 days
[2021-03-01] MEDS ORDERED: ONDANSETRON 4 MG/2 ML VIAL IVP STA (07:38)
[2021-03-01 08:06] LABS: ALT 12 U/L (4-34); AST 35 U/L (14-36); African American GFR (CKD) >90 (>60 ml/min/1.73 sqM); Albumin 4.2 g/dL (3.5-5.0); Alkaline Phosphatase 97 U/L (38-126); Amylase 47 U/L (30-110); Anion Gap 10 mmol/L; Blood Urea Nitrogen 16 mg/dL (7-17); Calcium 9.6 mg/dL (8.4-10.2); Carbon Dioxide 23 mmol/L (22-30); Chloride 89 mmol/L (98-107); Glucose 108 mg/dL (74-99); Lipase 48 U/L (23-300); Non-African American GFR(CKD) 82 (>60 ml/min/1.73 sqM); Potassium 4.2 mmol/L (3.5-5.1); Sodium 122 mmol/L (137-145); Total Bilirubin 0.6 mg/dL (0.2-1.3); Total Protein 7.3 g/dL (6.3-8.2)
[2021-03-01 08:10] LABS: Basophils % (A) 0 %; Eosinophils # (A) 0.2 k/uL (0-0.7); Eosinophils % (A) 2 %; HCT 40.6 % (34.0-46.0); HGB 14.1 gm/dL (11.4-16.0); Lymphocytes # (A) 5.4 k/uL (1.0-4.8); Lymphocytes % (A) 46 %; MCH 35.5 pg (25.0-35.0); MCHC 34.7 g/dL (31.0-37.0); MCV 102.3 fL (80.0-100.0); Macrocytosis Slight; Monocytes # (A) 0.3 k/uL (0-1.0); Monocytes % (A) 3 %; Neutrophils # (A) 5.5 k/uL (1.3-7.7); Neutrophils % (A) 47 %; Platelet Count 335 k/uL (150-450); RBC 3.97 m/uL (3.80-5.40); RDW 15.6 % (11.5-15.5); WBC 11.7 k/uL (3.8-10.6)
[2021-03-01 08:24] LABS: Appearance,Urine Clear (Clear); Bilirubin,Urine Negative (Negative); Blood,Urine Negative (Negative); Color,Urine Light Yellow; Glucose,Urine (UA) Negative (Negative); Ketones,Urine Negative (Negative); Leukocyte Esterase,Urine Negative (Negative); Nitrite,Urine Negative (Negative); PH, Urine 6.5 (5.0-8.0); Protein,Urine Trace (Negative); Specific Gravity,Urine 1.009 (1.001-1.035); Urobilinogen,Urine <2.0 mg/dL (<2.0)
--- NOTE | 2021-03-01 08:25 | XR ---
EXAMINATION TYPE: XR ribs RT w pa chest xray, 5 views DATE OF EXAM: 03/01/2021 COMPARISON: 11/24/[address] 02/06/2019 HISTORY: 85-year-old female right-sided pain after fall FINDINGS: Heart normal size. Hyperinflation. No pneumothorax. Large hiatal hernia redemonstrated filling the le ft base. Hilar prominence likely relating to pulmonary hypertension. Nondisplaced to minimally offset fractures of the right lateral eighth and ninth ribs. IMPRESSION: 1. Nondisplaced fractures of the right lateral eighth and ninth ribs. 2. COPD and known large hiatal hiatal hernia filling the left base.
--- NOTE | 2021-03-01 08:26 | XR ---
KUB HISTORY: Abdomen pain, trauma Frontal KUB submitted on 2 images Correlation to KUB 04/18/2016 There is a scoliotic curvature to the spine as on prior exam. There are air-fluid levels without dila tion especially in the right hemiabdomen. Some air-fluid levels are noted however superimposed over t he left heart, patient with known hiatal hernia and intrathoracic stomach on prior CT. No evident pne umoperitoneum. Atherosclerotic vascular calcifications are noted along the distribution of the aorta. IMPRESSION: Findings may represent ileus or enteritis, intrathoracic stomach, there may be bowel pres ent within patient's hiatal hernia. Follow-up as indicated.
[2021-03-01 08:57] LABS: Large Platelets Present
[2021-03-01 08:59] LABS: Polychromasia Present
[2021-03-01 09:00] LABS: Anisocytosis (M) Present; Poikilocytosis (M) Present
[2021-03-01] MEDS ORDERED: NALOXONE 0.4 MG/ML 1 ML VIAL IV PRN (09:32)
[2021-03-01] MEDS ORDERED: ACETAMINOPHEN TAB 325 MG TAB PO PRN (09:32)
[2021-03-01] MEDS ORDERED: MECLIZINE 25 MG TAB PO PRN (09:34)
[2021-03-01] MEDS ORDERED: ONDANSETRON 4 MG/2 ML VIAL IVP PRN (09:35)
[2021-03-01] MEDS: HYDROcodone/APAP 5-325MG 1 EACH TAB PO PRN ×2 (10:22→16:41)
[2021-03-01] MEDS: SODIUM CHLORIDE 0.9% 1,000 ML IV SCH ×2 (10:22→16:48)
[2021-03-01] MEDS: HYDROXYUREA 500 MG CAP PO SCH ×2 (10:35)
[2021-03-01] MEDS ORDERED: bisacodyL 5 MG TABLET.DR PO PRN (12:34)
[2021-03-01] MEDS: PANTOPRAZOLE 40 MG/10 ML VIAL IVP SCH (12:39)
--- NOTE | 2021-03-01 12:39 | P.HPIM ---
History of Present Illness H&P Date: 03/01/21 Chief Complaint: rib pain Patient is in 79s initial female with history of hypertension, dyslipidemia, and leukemia presented to the emergency department with complaints of multiple falls and rib pain. In the ER she underwent an extensive evaluation. On arrival she was hypertensive with a blood pressure of 178/90. Initial laboratory analysis showed white blood cell count 11.7, sodium 122, chloride 89, TSH 4.780, coated testing was negative. Chest x-ray demonstrated right lateral eighth and ninth nondisplaced rib fractures, COPD, and known large hiatal hernia. KUB demonstrated ileitis or enteritis, intrathoracic stomach with some air-fluid levels. In the ER she was given a minimum 1 L bolus was started on normal saline. Patient seen and examined at bedside. Fell 5 days ago adn had had pain with breathing, so decided to come into day. Pain started right after fall but was getting worse. Pain in the right ribs at midline. Lives by herself and was afraid of falling. Has not been taking any NSAID, just extra strength tylenol. + Shortness of breath when in alot of pain. Hx of vertigo, + nausea this AM related to vertigo. Hard time sitting up and eating and feeling weaker. Pain with eating and then nasuea. Pertinent positives and negatives as discussed in HPI, a complete review of systems was performed and all other systems are negative. General: non toxic, no distress, appears at stated age Derm: warm, dry, + excoriation on the back Head: atraumatic, normocephalic, symmetric Eyes: EOMI, no lid lag, anicteric sclera, pupils equal round reactive to light ENT: Nose and ears atraumatic, no thrush, no pharyngeal erythema Neck: No thyromegaly, no cervical lymphadenopathy, trachea midline, supple Mouth: no lip lesion, mucus membranes moist Cardiovascular: S1S2 reg, no murmur, positive posterior tibial pulse bilateral, no edema, capillary refill less than 2 seconds Lungs: clear to ascultation bilateral, no ronchi, no rales, no wheeze, no accessory muscle use Abdominal: soft, nontender to palpation, no guarding, no appreciable organomegaly, normal bowel sounds Ext: no gross muscle atrophy, muscle strength muscle strength 5 out of 5 in all 4 extremities, no contractures Neuro: CN II-XI grossly intact, light touch intact all 4 extremities, finger to nose within normal limits, Psych: Alert, oriented, appropriate affect Hyponatremia Weakness Fall Hypothyroidism Right rib fractures - IVF fluids, hold lasix - Serial BMP - Increased Levothyroxine dosing - PT/OT GERD - likely related to hiatial hernia - GI coccktail X 1 - Protonix IVP - if worse in AM then CT scan, likely related to known significanat hiatal hernia HLD - statin HTN - lopressor - norvasc - follow BP Vertigo - as needed antivert Thrombocytosis unknwon diagnosis - resume home hydrea and Anagrelide The patient is admitted with an anticipated greater than 2 midnight stay for evaluation of rib pain Surrogate decision-maker: grandson CODE STATUS:DNR DVT prophylaxis: Lovenox Discussed with: patient, nursing, ED provider Anticipated discharge date: in 1-[address]: HH vs SNF A total of 60 minutes was spent on the care of this complex patient more than 50% of the time was spent in counseling and care coordination. Past Medical History Past Medical History: Blood Disorder, CVA/TIA, Hyperlipidemia, Hypertension, Pneumonia, Thyroid Disorder Additional Past Medical History / Comment(s): Follow with Dr. Phelps for elevated platelets History of Any Multi-Drug Resistant Organisms: None Reported Past Surgical History: Joint Replacement Additional Past Surgical History / Comment(s): left knee replacement, ovarian cysts removed, left cataracts, Past Anesthesia/Blood Transfusion Reactions: No Reported Reaction Past Psychological History: No Psychological Hx Reported Smoking Status: Never smoker Past Alcohol Use History: None Reported Past Drug Use History: None Reported Additional History: walker at home mostly, lives alone - Past Family History Father Additional Family Medical History / Comment(s): old age Mother Additional Family Medical History / Comment(s): kidney disease Medications and Allergies Home Medications Medication Instructions Recorded Confirmed Type Anagrelide HCl [Agrylin] 0.5 mg PO BID 11/06/15 03/01/21 History Hydroxyurea [Hydrea] 500 mg PO SUTUTHSA 11/06/15 03/01/21 History Levothyroxine Sodium [Synthroid] 25 mcg PO DAILY@0600 11/06/15 03/01/21 History amLODIPine BESYLATE [Norvasc] 5 mg PO DAILY 11/06/15 03/01/21 History Hydroxyurea 1,000 mg PO MOWEFR 04/18/16 03/01/21 History Omeprazole 20 mg PO DAILY@0600 04/18/16 03/01/21 History Metoprolol Tartrate [Lopressor] 75 mg PO BID 09/03/17 03/01/21 History Furosemide [Lasix] 20 mg PO DAILY 08/09/20 03/01/21 History Vitamin A Red 1 cap PO BID 08/09/20 03/01/21 History Vitamin B Complex 1 cap PO DAILY 08/09/20 03/01/21 History Calcium Carbonate/Vitamin D3 1 tab PO DAILY 08/16/20 03/01/21 History [Calcium 500 mg-Vit D3 5 mcg (200 Unit)] Aspirin 81 mg PO HS chew 08/17/20 03/01/21 Rx Lovastatin [Altoprev] 20 mg PO HS 11/24/20 03/01/21 History Meclizine [Antivert] 25 mg PO TID PRN 03/01/21 03/01/21 History Allergies Allergy/AdvReac Type Severity Reaction Status Date / Time Sulfa (Sulfonamide Allergy Rash/Hives Verified 03/01/21 09:00 Antibiotics) Physical Exam Osteopathic Statement: *. No significant issues noted on an osteopathic structural exam other than those noted in the History and Physical/Consult. Vitals: Vital Signs Temp Pulse Resp BP Pulse Ox 03/01/21 11:01 97.1 F L 100 18 151/86 96 03/01/21 06:55 98 F 94 20 178/90 97 Intake and Output 02/28/21 03/01/21 03/01/21 22:59 06:59 14:59 Other: Weight 67.132 kg Results CBC & Chem 7: 03/01/21 07:30 03/01/21 07:30 Labs: Abnormal Lab Results - Last 24 Hours (Table) 03/01/21 03/01/21 03/01/21 Range/Units 07:30 07:30 07:30 WBC 11.7 H (3.8-10.6) k/uL MCV 102.3 H (80.0-100.0) fL MCH 35.5 H (25.0-35.0) pg RDW 15.6 H (11.5-15.5) % Lymphocytes # 5.4 H (1.0-4.8) k/uL Sodium 122 L (137-145) mmol/L Chloride 89 L (98-107) mmol/L Glucose 108 H (74-99) mg/dL TSH 4.780 H (0.465-4.680) mIU/L Urine Protein (Negative) 03/01/21 Range/Units 08:16 WBC (3.8-10.6) k/uL MCV (80.0-100.0) fL MCH (25.0-35.0) pg RDW (11.5-15.5) % Lymphocytes # (1.0-4.8) k/uL Sodium (137-145) mmol/L Chloride (98-107) mmol/L Glucose (74-99) mg/dL TSH (0.465-4.680) mIU/L Urine Protein Trace H (Negative)
[2021-03-01 12:48] LABS: T4, Free (Free Thyroxine) 2.19 ng/dL (0.78-2.19)
[2021-03-01] MEDS ORDERED: MAG HYDROX/AL HYDROX/SIMETH 30 ML, HYOSCYAMINE ELIXIR 10 ML, LIDOCAINE VISCOUS 2% 10 ML PO ONE ×3 (13:00)
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
[2021-03-01] MEDS: LIDOCAINE 5% PATCH TOPICAL SCH (16:42)
[2021-03-01 16:57] LABS: African American GFR (CKD) >90 (>60 ml/min/1.73 sqM); Anion Gap 8 mmol/L; Blood Urea Nitrogen 13 mg/dL (7-17); Calcium 8.9 mg/dL (8.4-10.2); Carbon Dioxide 23 mmol/L (22-30); Chloride 92 mmol/L (98-107); Glucose 115 mg/dL (74-99); Non-African American GFR(CKD) 83 (>60 ml/min/1.73 sqM); Potassium 4.5 mmol/L (3.5-5.1); Sodium 123 mmol/L (137-145)
[2021-03-01] MEDS ORDERED: [UNRECOGNIZED DRUG - OTHER] PO SCH (21:00)
[2021-03-01] MEDS: ANAGRELIDE 0.5 MG CAP PO SCH (21:17)
[2021-03-01] MEDS: ATORVASTATIN 10 MG TAB PO SCH (21:17)
[2021-03-01] MEDS: ASPIRIN 81 MG PO SCH (21:17)
[2021-03-01] MEDS: METOPROLOL TARTRATE 25 MG TAB PO SCH (21:17)
[2021-03-01] MEDS: KETOROLAC 15 MG/ML 1 ML VIAL IVP PRN (21:23)
[2021-03-01 22:28] LABS: African American GFR (CKD) >90 (>60 ml/min/1.73 sqM); Anion Gap 8 mmol/L; Blood Urea Nitrogen 12 mg/dL (7-17); Carbon Dioxide 24 mmol/L (22-30); Chloride 93 mmol/L (98-107); Glucose 117 mg/dL (74-99); Non-African American GFR(CKD) 79 (>60 ml/min/1.73 sqM); Potassium 4.5 mmol/L (3.5-5.1); Sodium 125 mmol/L (137-145)
[2021-03-02] MEDS: LEVOTHYROXINE 25 MCG TAB PO SCH (05:05)
[2021-03-02] MEDS: HYDROcodone/APAP 5-325MG 1 EACH TAB PO PRN ×3 (05:08→20:47)
[2021-03-02] MEDS ORDERED: PANTOPRAZOLE 40 MG TABLET PO SCH (06:00)
[2021-03-02 07:03] LABS: African American GFR (CKD) 79 (>60 ml/min/1.73 sqM); Anion Gap 4 mmol/L; Blood Urea Nitrogen 14 mg/dL (7-17); Calcium 9.6 mg/dL (8.4-10.2); Carbon Dioxide 28 mmol/L (22-30); Chloride 93 mmol/L (98-107); Glucose 102 mg/dL (74-99); Non-African American GFR(CKD) 69 (>60 ml/min/1.73 sqM); Potassium 5.7 mmol/L (3.5-5.1); Sodium 125 mmol/L (137-145)
[2021-03-02 07:07] LABS: Magnesium 1.4 mg/dL (1.6-2.3); Phosphorus 3.4 mg/dL (2.5-4.5)
[2021-03-02 07:18] LABS: HCT 39.4 % (34.0-46.0); HGB 12.9 gm/dL (11.4-16.0); MCH 34.4 pg (25.0-35.0); MCHC 32.7 g/dL (31.0-37.0); MCV 105.1 fL (80.0-100.0); Macrocytosis Moderate; Platelet Count 325 k/uL (150-450); RBC 3.74 m/uL (3.80-5.40); RDW 15.6 % (11.5-15.5); WBC 11.2 k/uL (3.8-10.6)
[2021-03-02] MEDS: ANAGRELIDE 0.5 MG CAP PO SCH ×2 (08:25→20:49)
[2021-03-02] MEDS: CALCIUM CARB-VIT D 500 MG-5 MCG TAB PO SCH (08:25)
[2021-03-02] MEDS: ENOXAPARIN 40 MG/0.4 ML SYRINGE SQ SCH (08:25)
[2021-03-02] MEDS: FOLIC ACID-VIT B COMPLEX-VIT C 1 CAP PO SCH (08:26)
[2021-03-02] MEDS: HYDROXYUREA 500 MG CAP PO SCH (08:26)
[2021-03-02] MEDS: LIDOCAINE 5% PATCH TOPICAL SCH (08:27)
[2021-03-02] MEDS: METOPROLOL TARTRATE 25 MG TAB PO SCH ×2 (08:29→20:48)
[2021-03-02] MEDS: PANTOPRAZOLE 40 MG/10 ML VIAL IVP SCH (08:30)
[2021-03-02] MEDS ORDERED: amLODIPine 5 MG TAB PO SCH (09:00)
[2021-03-02] MEDS: MAGNESIUM SULFATE-D5W PMX 1 GM in DEXTROSE/WATER 1 100ML.BAG IVPB SCH ×2 (10:55→12:04)
[2021-03-02] MEDS: SODIUM CHLORIDE 0.9% 1,000 ML IV SCH (12:07)
--- NOTE | 2021-03-02 13:34 | P.PN ---
Subjective Patient was seen and evaluated by me this morning. She is awake and alert. She does not have any complaints. Lab work showed hypokalemia and hyponatremia. Objective - Vital Signs Vital signs: Vital Signs Temp 98.1 F 03/02/21 12:21 Pulse 81 03/02/21 12:21 Resp 14 03/02/21 12:21 BP 153/80 03/02/21 12:21 Pulse Ox 95 03/02/21 12:21 Intake & Output 03/01/21 03/02/21 03/02/21 18:59 06:59 18:59 Intake Total 750 Balance 750 Weight 67.132 kg Intake: Oral 750 Other: Voiding Method Toilet Toilet # Voids 1 5 1 - Exam General: The patient is awake and alert, in no distress Eye: there is normal conjunctiva bilaterally. Neck: The neck is supple, there is no JVD. Cardiovascular: Normal S1-S2, no S3-S4, no murmurs. Respiratory: Lungs clear to auscultation bilaterally Gastrointestinal: Abdomen is soft, nontender Musculoskeletal: There is no pedal edema. Neurological:. Speech is normal. Skin: Skin is warm and dry - Labs CBC & Chem 7: 03/02/21 06:18 03/02/21 10:33 Labs: Abnormal Lab Results - Last 24 Hours (Table) 03/01/21 03/01/21 03/02/21 Range/Units 16:36 21:29 06:18 WBC (3.8-10.6) k/uL RBC (3.80-5.40) m/uL MCV (80.0-100.0) fL RDW (11.5-15.5) % Sodium 123 L 125 L 125 L (137-145) mmol/L Potassium 5.7 H (3.5-5.1) mmol/L Chloride 92 L 93 L 93 L (98-107) mmol/L Glucose 115 H 117 H 102 H (74-99) mg/dL Magnesium (1.6-2.3) mg/dL 03/02/21 03/02/21 03/02/21 Range/Units 06:18 06:18 10:33 WBC 11.2 H (3.8-10.6) k/uL RBC 3.74 L (3.80-5.40) m/uL MCV 105.1 H (80.0-100.0) fL RDW 15.6 H (11.5-15.5) % Sodium 124 L (137-145) mmol/L Potassium (3.5-5.1) mmol/L Chloride (98-107) mmol/L Glucose (74-99) mg/dL Magnesium 1.4 L (1.6-2.3) mg/dL Assessment and Plan Assessment: Patient is in 80s initial female with history of hypertension, dyslipidemia, and leukemia presented to the emergency department with complaints of multiple falls and rib pain. In the ER she underwent an extensive evaluation. On arrival she was hypertensive with a blood pressure of 178/90. Initial laboratory analysis showed white blood cell count 11.7, sodium 122, chloride 89, TSH 4.780, coated testing was negative. Chest x-ray demonstrated right lateral eighth and ninth nondisplaced rib fractures, COPD, and known large hiatal hernia. KUB demonstrated ileitis or enteritis, intrathoracic stomach with some air-fluid levels. In the ER she was given a minimum 1 L bolus was started on normal saline. Because of his of her medical problems addressed during this hospitalization Hyponatremia Weakness Fall Hypothyroidism Right rib fractures - IVF fluids, hold lasix, consult neurology - Serial BMP - Increased Levothyroxine dosing - PT/OT GERD - likely related to hiatial hernia - GI coccktail X 1 - Protonix IVP - if worse in AM then CT scan, likely related to known significanat hiatal hernia HLD - statin HTN - lopressor - norvasc - follow BP Vertigo - as needed antivert Thrombocytosis unknwon diagnosis - resume home hydrea and Anagrelide The patient is admitted with an anticipated greater than 2 midnight stay for evaluation of rib pain Surrogate decision-maker: grandson CODE STATUS:DNR DVT prophylaxis: Lovenox Discussed with: patient, nursing, ED provider Anticipated discharge date: in 1-[address]: vs SNF A total of 60 minutes was spent on the care of this complex patient more than 50% of the time was spent in counseling and care coordination.
[2021-03-02 14:13] VITALS: BMI 23.1
--- NOTE | 2021-03-02 15:06 | P.PN ---
Subjective Progress Note Date: 03/02/21 CHIEF COMPLAINT: Fall with rib fractures HISTORY OF PRESENT ILLNESS: This is a 5-year-old female who fell and had trauma to her right rib cage with evidence of nondisplaced fractures of ribs 8 and 9. Patient reports that her pain is controlled. She has been up and ambulating. She denies any nausea or vomiting. She is tolerating diet. Afebrile. WBC 11.2 hemoglobin is 12.9 and platelets 325 sodium 124 potassium 5.7 creatinine 0.79 magnesium 1.4 nephrology on consult for patient's hyponatremia PHYSICAL EXAM: VITAL SIGNS: Reviewed. GENERAL: Well-developed in no acute distress. HEENT: No sclera icterus. Extraocular movements grossly intact. Moist buccal mucosa. Head is atraumatic, normocephalic. ABDOMEN: Soft. Nondistended. Nontender. NEUROLOGIC: Alert and oriented. Cranial nerves II through XII grossly intact. ASSESSMENT: 1. Right-sided nondisplaced rib fractures of the eighth and ninth rib secondary to trauma from fall 2. Chronic large hiatal hernia 3. Hyponatremia PLAN: -Continue supportive care -No surgical intervention planned -Patient to follow-up with Dr. Wolf in the office in one week after discharge -Continue incentive spirometer -Encouraged patient to ambulate -Continue pain medication as needed -Hyponatremia management per nephrology -Hyperkalemia management per medicine and nephrology Physician Tumbler Drier Operator note has been reviewed by physician. Signing provider agrees with the documented findings, assessment, and plan of care. Objective - Vital Signs Vital signs: Vital Signs Temp 98.1 F 03/02/21 12:21 Pulse 81 03/02/21 12:21 Resp 14 03/02/21 12:21 BP 153/80 03/02/21 12:21 Pulse Ox 95 03/02/21 12:21 Intake & Output 03/01/21 03/02/21 03/02/21 18:59 06:59 18:59 Intake Total 750 Balance 750 Weight 67.132 kg 67.132 kg Intake: Oral 750 Other: Voiding Method Toilet Toilet # Voids 1 5 1 - Labs CBC & Chem 7: 03/02/21 06:18 03/02/21 10:33 Labs: Abnormal Lab Results - Last 24 Hours (Table) 03/01/21 03/01/21 03/02/21 Range/Units 16:36 21:29 06:18 WBC (3.8-10.6) k/uL RBC (3.80-5.40) m/uL MCV (80.0-100.0) fL RDW (11.5-15.5) % Sodium 123 L 125 L 125 L (137-145) mmol/L Potassium 5.7 H (3.5-5.1) mmol/L Chloride 92 L 93 L 93 L (98-107) mmol/L Glucose 115 H 117 H 102 H (74-99) mg/dL Magnesium (1.6-2.3) mg/dL 03/02/21 03/02/21 03/02/21 Range/Units 06:18 06:18 10:33 WBC 11.2 H (3.8-10.6) k/uL RBC 3.74 L (3.80-5.40) m/uL MCV 105.1 H (80.0-100.0) fL RDW 15.6 H (11.5-15.5) % Sodium 124 L (137-145) mmol/L Potassium (3.5-5.1) mmol/L Chloride (98-107) mmol/L Glucose (74-99) mg/dL Magnesium 1.4 L (1.6-2.3) mg/dL
[2021-03-02] MEDS ORDERED: SODIUM POLYSTYRENE SULFONATE 15 GM/60 ML BOTTLE PO STA (16:08)
[2021-03-02] MEDS ORDERED: TOLVAPTAN 15 MG 1/2 TABLET PO ONE (18:30)
--- NOTE | 2021-03-02 19:41 | CONS ---
CONSULTATION REASON FOR CONSULT: Hyponatremia. HISTORY OF PRESENT ILLNESS: The patient is an 85-year-old female who has a previous history of hypertension, hyperlipidemia, pneumonia, history of CVA/TIA. The patient was admitted to the hospital with complaints of abdominal pain and right-sided pain in the rib area. The patient was noted to have a serum sodium of 123 and 122 mEq/L. She did receive normal saline bolus and then drip at 75 mL an hour. Her serum sodium actually improved to 125 and then it decreased down to 124. The patient denies use of any new medications recently prior to her admission. She is not maintained on thiazide diuretics. She is maintained on Lasix. The patient denies any nausea, vomiting or diarrhea. Urine osmolality was ordered. It came back at 207. Blood pressure has not been low, in fact it is on the higher side with sodium at 150, with a systolic blood pressure 157 and 153 mEq/L. The patient was found to have nondisplaced fractures of ribs 8 and 9. PAST MEDICAL HISTORY: Hypertension, hyperlipidemia, history of CVA, TIA, hypothyroidism, thrombocytosis, COPD, previous history of nondisplaced rib fractures. PAST SURGICAL HISTORY: Left knee arthroplasty, surgery for ovarian cysts and cataract surgery on the left side. SOCIAL HISTORY: Negative for smoking, drug abuse or alcohol abuse. MEDICATIONS: Medications prior to admission included Agrylin, Hydrea, Synthroid, Norvasc, hydroxyurea, omeprazole, Lopressor, Lasix vitamin D, aspirin, Antivert, lovastatin. ALLERGIES: INCLUDE SULFA WHICH CAUSES RASH AND HIVES. REVIEW OF SYSTEMS: As per HPI. Other systems negative. EXAMINATION: Currently comfortable, awake, alert, oriented x3, not in any acute distress. Blood pressure 153/80, heart rate 81 per minute. She is afebrile. Examination of the heart S1, S2. Examination of the lungs, bilateral breath sounds are heard. Abdomen is soft, nontender. Examination of lower extremities shows no evidence of edema. SENIOR SUPPORT ENGINEER exam is grossly intact. LABS: Show sodium 124 on 03/02/2021, potassium was 5.7 previously, BUN 14, serum creatinine 0.79, phosphorus 3.4, magnesium 1.4. ASSESSMENT: 1. Hyponatremia, euvolemic serum sodium did not improve with saline administration, in fact it slightly dropped. Urine osmolality is on the lower side. Etiology is most likely decreased oral intake and low urinary osmoles. We will treat with tolvaptan. The patient is not a candidate for a sodium chloride tabs given her high blood pressure. I will recheck her serum sodium this evening. 2. Hyperkalemia. Rule out urine retention. Serum creatinine is not elevated. This could also be secondary to the NSAIDs. Blood sugar is not high. Repeat serum potassium this evening. Maintain patient on low-potassium diet. She has received a dose of Kayexalate. The patient has history of thrombocytosis, which can contribute to the hyperkalemia. However, her platelet count was not significantly elevated. 3. Hypomagnesemia secondary to decreased oral intake. Use of loop diuretics prior to admission, will replace. 4. Hypothyroidism. PLAN: Check TSH if not done. Increase protein intake. Add tolvaptan 15 mg p.o. x1 now. Repeat potassium later this evening along with sodium and restrict fluids. Thank you for this consultation. We will continue to follow the patient with you during her hospitalization. MMLUIS DANIELL / IJN: [id number] /
[2021-03-02] MEDS: ASPIRIN 81 MG PO SCH (20:47)
[2021-03-02] MEDS: MAGNESIUM OXIDE 400 MG TAB PO SCH (20:48)
[2021-03-02] MEDS: amLODIPine 5 MG TAB PO SCH (20:48)
[2021-03-02] MEDS: ATORVASTATIN 10 MG TAB PO SCH (20:48)
[2021-03-02] MEDS: KETOROLAC 15 MG/ML 1 ML VIAL IVP PRN (21:15)
[2021-03-02 22:10] LABS: Potassium 4.9 mmol/L (3.5-5.1)
[2021-03-02] MEDS ORDERED: SODIUM CHLORIDE TAB 1 GM TAB PO STA (23:45)
[2021-03-03] MEDS: HYDROcodone/APAP 5-325MG 1 EACH TAB PO PRN ×3 (01:17→22:06)
[2021-03-03] MEDS: KETOROLAC 15 MG/ML 1 ML VIAL IVP PRN (04:49)
[2021-03-03] MEDS: LEVOTHYROXINE 25 MCG TAB PO SCH (05:01)
[2021-03-03 05:27] LABS: Basophils % (A) 0 %; Eosinophils # (A) 0.3 k/uL (0-0.7); Eosinophils % (A) 3 %; HGB 13.4 gm/dL (11.4-16.0); Hypochromasia Slight; Lymphocytes # (A) 4.3 k/uL (1.0-4.8); Lymphocytes % (A) 39 %; MCH 33.6 pg (25.0-35.0); MCHC 31.1 g/dL (31.0-37.0); Macrocytosis Marked; Mean Platelet Volume 11.9; Monocytes # (A) 0.3 k/uL (0-1.0); Monocytes % (A) 3 %; Neutrophils # (A) 5.8 k/uL (1.3-7.7); Neutrophils % (A) 53 %; Platelet Count 331 k/uL (150-450); RBC 3.98 m/uL (3.80-5.40); RDW 15.1 % (11.5-15.5)
[2021-03-03] MEDS: CALCIUM CARB-VIT D 500 MG-5 MCG TAB PO SCH (08:55)
[2021-03-03] MEDS: LIDOCAINE 5% PATCH TOPICAL SCH (08:55)
[2021-03-03] MEDS: amLODIPine 5 MG TAB PO SCH ×2 (08:55→21:00)
[2021-03-03] MEDS: ENOXAPARIN 40 MG/0.4 ML SYRINGE SQ SCH (08:55)
[2021-03-03] MEDS: FOLIC ACID-VIT B COMPLEX-VIT C 1 CAP PO SCH (08:55)
[2021-03-03] MEDS: ANAGRELIDE 0.5 MG CAP PO SCH ×2 (08:55→21:00)
[2021-03-03] MEDS: METOPROLOL TARTRATE 25 MG TAB PO SCH ×2 (08:57→21:00)
[2021-03-03] MEDS: MAGNESIUM OXIDE 400 MG TAB PO SCH ×2 (08:57→21:00)
[2021-03-03] MEDS: HYDROXYUREA 500 MG CAP PO SCH (08:57)
[2021-03-03] MEDS: PANTOPRAZOLE 40 MG/10 ML VIAL IVP SCH (08:57)
[2021-03-03 10:36] LABS: African American GFR (CKD) 77.4 (60.0-200.0); Anion Gap 10.1 mmol/L (4.00-12.00); Calcium 9.2 mg/dL (8.7-10.3); Carbon Dioxide 24.9 mmol/L (21.6-31.8); Magnesium 1.8 mg/dL (1.5-2.4); Non-African American GFR(CKD) 66.8 (60.0-200.0); Potassium 5.1 mmol/L (3.5-5.5)
--- NOTE | 2021-03-03 13:17 | P.PN ---
Subjective Progress Note Date: 03/03/21 CHIEF COMPLAINT: Fall with rib fractures HISTORY OF PRESENT ILLNESS: This is a 85-year-old female who fell and had trauma to her right rib cage with evidence of nondisplaced fractures of ribs 8 and 9. Patient reports that her pain is controlled. She has been up and ambulating. She denies any nausea or vomiting. She is tolerating diet. Patient being followed by nephrology in regards to her hyponatremia. Afebrile. WBC is 11 hemoglobin 13.4 sodium 130 potassium 5.1 creatinine 0.8 PHYSICAL EXAM: VITAL SIGNS: Reviewed. GENERAL: Well-developed in no acute distress. HEENT: No sclera icterus. Extraocular movements grossly intact. Moist buccal mucosa. Head is atraumatic, normocephalic. ABDOMEN: Soft. Nondistended. Nontender. NEUROLOGIC: Alert and oriented. Cranial nerves II through XII grossly intact. ASSESSMENT: 1. Right-sided nondisplaced rib fractures of the eighth and ninth rib secondary to trauma from fall 2. Chronic large hiatal hernia 3. Hyponatremia PLAN: -Continue supportive care -No surgical intervention planned -Patient to follow-up with Dr. Wolf in the office in one week after discharge -Continue incentive spirometer -Encouraged patient to ambulate -Continue pain medication as needed -Hyponatremia management per nephrology Physician Manager Data Warehouse note has been reviewed by physician. Signing provider agrees with the documented findings, assessment, and plan of care. Objective - Vital Signs Vital signs: Vital Signs Temp 98.5 F 03/03/21 11:39 Pulse 71 03/03/21 11:39 Resp 19 03/03/21 11:39 BP 123/68 03/03/21 11:39 Pulse Ox 97 03/03/21 11:39 Intake & Output 03/02/21 03/03/21 03/03/21 18:59 06:59 18:59 Intake Total 1600 740 Balance 1600 740 Weight 67.132 kg Intake: Intake, IV Titration 800 Amount Magnesium Sulfate-D5w Pmx 200 1 gm In Dextrose/Water 1 100ml.bag @ 100 mls/hr IVPB Q1H DAJA Rx#: [id number] Sodium Chloride 0.9% 1, 600 000 ml @ 75 mls/hr IV . [id number] DAJA Rx#:[id number] Oral 800 740 Other: Voiding Method Toilet Toilet Toilet # Voids 5 3 3 - Labs CBC & Chem 7: 03/03/21 05:00 03/03/21 05:00 Labs: Abnormal Lab Results - Last 24 Hours (Table) 03/02/21 03/03/21 03/03/21 Range/Units 21:24 05:00 05:00 WBC 11.0 H (3.8-10.6) k/uL MCV 108.0 H (80.0-100.0) fL Macrocytosis Marked A Sodium 123 L 130 L (137-145) mmol/L Chloride 95 L (96-109) mmol/L
--- NOTE | 2021-03-03 14:21 | P.PN ---
Subjective Patient was seen and evaluated by me this morning. She is awake and alert. She does not have any complaints. Sodium level improved today. Objective - Vital Signs Vital signs: Vital Signs Temp 98.5 F 03/03/21 11:39 Pulse 71 03/03/21 11:39 Resp 19 03/03/21 11:39 BP 123/68 03/03/21 11:39 Pulse Ox 97 03/03/21 11:39 Intake & Output 03/02/21 03/03/21 03/03/21 18:59 06:59 18:59 Intake Total 1600 740 Balance 1600 740 Weight 67.132 kg Intake: Intake, IV Titration 800 Amount Magnesium Sulfate-D5w Pmx 200 1 gm In Dextrose/Water 1 100ml.bag @ 100 mls/hr IVPB Q1H DAJA Rx#: [id number] Sodium Chloride 0.9% 1, 600 000 ml @ 75 mls/hr IV . [id number] DAJA Rx#:[id number] Oral 800 740 Other: Voiding Method Toilet Toilet Toilet # Voids 5 3 3 - Exam General: The patient is awake and alert, in no distress Eye: there is normal conjunctiva bilaterally. Neck: The neck is supple, there is no JVD. Cardiovascular: Normal S1-S2, no S3-S4, no murmurs. Respiratory: Lungs clear to auscultation bilaterally Gastrointestinal: Abdomen is soft, nontender Musculoskeletal: There is no pedal edema. Neurological:. Speech is normal. Skin: Skin is warm and dry - Labs CBC & Chem 7: 03/03/21 05:00 03/03/21 05:00 Labs: Abnormal Lab Results - Last 24 Hours (Table) 03/02/21 03/03/21 03/03/21 Range/Units 21:24 05:00 05:00 WBC 11.0 H (3.8-10.6) k/uL MCV 108.0 H (80.0-100.0) fL Macrocytosis Marked A Sodium 123 L 130 L (137-145) mmol/L Chloride 95 L (96-109) mmol/L Assessment and Plan Assessment: Patient is in 80s initial female with history of hypertension, dyslipidemia, and leukemia presented to the emergency department with complaints of multiple falls and rib pain. In the ER she underwent an extensive evaluation. On arrival she was hypertensive with a blood pressure of 178/90. Initial laboratory analysis showed white blood cell count 11.7, sodium 122, chloride 89, TSH 4.780, coated testing was negative. Chest x-ray demonstrated right lateral eighth and ninth nondisplaced rib fractures, COPD, and known large hiatal hernia. KUB demonstrated ileitis or enteritis, intrathoracic stomach with some air-fluid levels. In the ER she was given a minimum 1 L bolus was started on normal saline. Because of his of her medical problems addressed during this hospitalization Hyponatremia Weakness Fall Hypothyroidism Right rib fractures - IVF fluids, hold lasix, consulted nephrology s/p Samsca - Serial BMP - Increased Levothyroxine dosing - PT/OT GERD - likely related to hiatial hernia - GI coccktail X 1 - Protonix IVP - if worse in AM then CT scan, likely related to known significanat hiatal hernia HLD - statin HTN - lopressor - norvasc - follow BP Vertigo - as needed antivert Thrombocytosis unknwon diagnosis - resume home hydrea and Anagrelide The patient is admitted with an anticipated greater than 2 midnight stay for evaluation of rib pain Surrogate decision-maker: grandson CODE STATUS:DNR DVT prophylaxis: Lovenox Discussed with: patient, nursing, ED provider Anticipated discharge date: in 1-[address]: vs SNF A total of 60 minutes was spent on the care of this complex patient more than 50% of the time was spent in counseling and care coordination.
--- NOTE | 2021-03-03 20:08 | PN ---
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 The patient is maintained on fluid restriction. She also received a couple of doses of tolvaptan and her sodium level this morning is up to 130. Patient has been encouraged to increase oral intake of protein along with fluid restriction. I did give her a dose of sodium chloride tabs 1 gram last night. Blood pressure is controlled. It did not increase significantly. PHYSICAL EXAMINATION: On examination today, blood pressure was 123/68, heart rate 71 per minute. Patient is afebrile. EXAMINATION OF THE HEART: S1 and S2. EXAMINATION OF LUNGS: Decreased breath sounds at the bases. ABDOMEN: Soft, nontender. LOWER EXTREMITIES: Examination of lower extremities shows no evidence of edema. PATCHING MACHINE OPERATOR EXAM: Grossly intact. LABS: Sodium 130, potassium 5.1, chloride 95. CO2 is 24.9, BUN 12, creatinine 0.8, hemoglobin 13.4 g/dL. ASSESSMENT: 1. Hyponatremia associated with low urine osmoles, improved significantly with sodium chloride tab. Blood pressure also did not increase. I will repeat another dose in the morning if her sodium is not further improved. So far it has increased by about 7 points in about 6 hours. I will repeat a serum sodium tomorrow morning. 2. Hypertension, currently controlled. 3. Right rib fractures. Pain is controlled. 4. Gastroesophageal reflux disease. PLAN: Repeat sodium in a.m. The patient responded very well to sodium chloride tabs. We may need to repeat it if sodium is lower. She is also advised to increase protein intake and maintain some degree of free water restriction. MMODL / IJN: [id number] /
[2021-03-03] MEDS: ASPIRIN 81 MG PO SCH (21:00)
[2021-03-03] MEDS: ATORVASTATIN 10 MG TAB PO SCH (21:00)
[2021-03-04] MEDS: KETOROLAC 15 MG/ML 1 ML VIAL IVP PRN ×2 (00:16→06:14)
[2021-03-04] MEDS: LEVOTHYROXINE 25 MCG TAB PO SCH (06:14)
[2021-03-04] MEDS: FOLIC ACID-VIT B COMPLEX-VIT C 1 CAP PO SCH (08:59)
[2021-03-04] MEDS: MAGNESIUM OXIDE 400 MG TAB PO SCH ×2 (08:59→21:03)
[2021-03-04] MEDS: METOPROLOL TARTRATE 25 MG TAB PO SCH ×2 (08:59→21:02)
[2021-03-04] MEDS: PANTOPRAZOLE 40 MG TABLET PO SCH (08:59)
[2021-03-04] MEDS: amLODIPine 5 MG TAB PO SCH ×2 (08:59→21:03)
[2021-03-04] MEDS: CALCIUM CARB-VIT D 500 MG-5 MCG TAB PO SCH (08:59)
[2021-03-04] MEDS: HYDROXYUREA 500 MG CAP PO SCH (09:00)
[2021-03-04] MEDS: ENOXAPARIN 40 MG/0.4 ML SYRINGE SQ SCH (09:00)
[2021-03-04] MEDS: ANAGRELIDE 0.5 MG CAP PO SCH ×2 (09:00→21:02)
[2021-03-04] MEDS: LIDOCAINE 5% PATCH TOPICAL SCH (09:10)
[2021-03-04 09:35] LABS: African American GFR (CKD) >90 (>60 ml/min/1.73 sqM); Anion Gap 6 mmol/L; Blood Urea Nitrogen 14 mg/dL (7-17); Calcium 9.8 mg/dL (8.4-10.2); Carbon Dioxide 31 mmol/L (22-30); Chloride 94 mmol/L (98-107); Glucose 134 mg/dL (74-99); Magnesium 1.7 mg/dL (1.6-2.3); Non-African American GFR(CKD) 80 (>60 ml/min/1.73 sqM); Potassium 4.6 mmol/L (3.5-5.1); Sodium 131 mmol/L (137-145)
--- NOTE | 2021-03-04 13:30 | PN ---
PROGRESS NOTE Patient is seen for followup for hyponatremia. Patient's sodium level has improved, she is up to 131 today. She has responded to fluid restriction and sodium chloride tabs which she received one time dose. EXAMINATION: Today blood pressure 144/82, heart rate 96 per minute, she is afebrile. Examination of the heart S1, S2. Examination lungs good air entry bilaterally. Abdomen is soft, nontender. Examination of lower extremities shows no evidence of edema. FITNESS SERVICES MANAGER exam grossly intact. LAB: Show sodium of 131, potassium 4.6 serum creatinine 0.6 mg/dL. ASSESSMENT: 1. Hyponatremia associated with lower urinary osmoles and decreased oral intake, particularly protein. This improved significantly with sodium chloride tabs which patient received only once. She is not a candidate for long-term use of sodium chloride tabs given her hypertension and elevated blood pressure. So far, the sodium has improved to 131. Therefore, she is advised to continue with some degree of free water restriction and high-protein intake. We need to avoid thiazide diuretics. 2. Hypertension, now better controlled. 3. Right rib fractures. Pain is controlled. 4. Gastroesophageal reflux disease. PLAN: Monitor serum sodium as outpatient. Maintain good oral protein intake and continue with fluid restriction post discharge. Can use a sodium chloride tabs on and off depending on his serum sodium level. MMODL / IJN: [id number] /
--- NOTE | 2021-03-04 13:41 | P.PN ---
Subjective Progress Note Date: 03/04/21 CHIEF COMPLAINT: Fall with rib fractures HISTORY OF PRESENT ILLNESS: This is a 85-year-old female who fell and had trauma to her right rib cage with evidence of nondisplaced fractures of ribs 8 and 9. Patient reports that her pain is controlled. She has been up and ambulating. She denies any nausea or vomiting. She is tolerating diet. Patient being followed by nephrology in regards to her hyponatremia. Afebrile. Sodium 131 PHYSICAL EXAM: VITAL SIGNS: Reviewed. GENERAL: Well-developed in no acute distress. HEENT: No sclera icterus. Extraocular movements grossly intact. Moist buccal mucosa. Head is atraumatic, normocephalic. ABDOMEN: Soft. Nondistended. Nontender. NEUROLOGIC: Alert and oriented. Cranial nerves II through XII grossly intact. ASSESSMENT: 1. Right-sided nondisplaced rib fractures of the eighth and ninth rib secondary to trauma from fall 2. Chronic large hiatal hernia 3. Hyponatremia PLAN: -Continue supportive care -No surgical intervention planned -Patient to follow-up with Dr. Wolf in the office in one week after discharge -Continue incentive spirometer -Encouraged patient to ambulate -Continue pain medication as needed -Hyponatremia management per nephrology Physician Buggy Driver note has been reviewed by physician. Signing provider agrees with the documented findings, assessment, and plan of care. Objective - Vital Signs Vital signs: Vital Signs Temp 98.7 F 03/04/21 11:05 Pulse 78 03/04/21 11:05 Resp 18 03/04/21 11:05 BP 120/70 03/04/21 11:05 Pulse Ox 95 03/04/21 11:05 Intake & Output 03/03/21 03/04/21 03/04/21 18:59 06:59 18:59 Intake Total 1000 898 Balance 1000 898 Intake: Oral 1000 898 Other: Voiding Method Toilet Toilet Toilet # Voids 5 1 - Labs CBC & Chem 7: 03/03/21 05:00 03/04/21 08:57 Labs: Abnormal Lab Results - Last 24 Hours (Table) 03/04/21 Range/Units 08:57 Sodium 131 L (137-145) mmol/L Chloride 94 L (98-107) mmol/L Carbon Dioxide 31 H (22-30) mmol/L Glucose 134 H (74-99) mg/dL
--- NOTE | 2021-03-04 14:46 | P.DS ---
Providers Date of admission: 03/01/21 09:32 Expected date of discharge: 03/04/21 Attending physician: Brie Cifuentes DO Consults: 03/01/21 09:33 Consult Physician Urgent Consulting Provider: Sanchez Wolf Consult Reason/Comments: Trauma, rib fracture Do you want consulting provider notified?: Yes 03/02/21 08:35 Consult Physician Routine Consulting Provider: Brenda Thompson Consult Reason/Comments: hyponatremia Do you want consulting provider notified?: Yes Primary care physician: Barrington Rivera MD Hospital Course: Patient is in 80s initial female with history of hypertension, dyslipidemia, and leukemia presented to the emergency department with complaints of multiple falls and rib pain. In the ER she underwent an extensive evaluation. On arrival she was hypertensive with a blood pressure of 178/90. Chest x-ray demonstrated right lateral eighth and ninth nondisplaced rib fractures, COPD, and known large hiatal hernia. KUB demonstrated ileitis or enteritis, intrathoracic stomach with some air-fluid levels. Below is a list of her medical problems addressed during this hospitalization Hyponatremia Weakness Fall Hypothyroidism Right rib fractures - Status post IV fluid, discontinue lasix, consulted nephrology s/p Samsca GERD HLD - statin HTN - lopressor - norvasc Vertigo - as needed antivert Patient was seen and evaluated by PT/OT. She'll be discharged home in a stable condition. Home healthcare will be set up. Physical exam: General: The patient is awake and alert, in no distress Eye: there is normal conjunctiva bilaterally. Neck: The neck is supple, there is no JVD. Cardiovascular: Normal S1-S2, no S3-S4, no murmurs. Respiratory: Lungs clear to auscultation bilaterally Gastrointestinal: Abdomen is soft, nontender Musculoskeletal: There is no pedal edema. Neurological:. Speech is normal. Skin: Skin is warm and dry Patient Condition at Discharge: Fair Plan - Discharge Summary Discharge Rx Participant: No New Discharge Prescriptions: Continue amLODIPine BESYLATE [Norvasc] 5 mg PO DAILY Hydroxyurea [Hydrea] 500 mg PO SUTUTHSA Levothyroxine Sodium [Synthroid] 25 mcg PO DAILY@0600 Anagrelide HCl [Agrylin] 0.5 mg PO BID Omeprazole 20 mg PO DAILY@0600 Hydroxyurea 1,000 mg PO MOWEFR Metoprolol Tartrate [Lopressor] 75 mg PO BID Vitamin B Complex 1 cap PO DAILY Vitamin A Red 1 cap PO BID Calcium Carbonate/Vitamin D3 [Calcium 500 mg-Vit D3 5 mcg (200 Unit)] 1 tab PO DAILY Aspirin 81 mg PO HS chew Lovastatin [Altoprev] 20 mg PO HS Meclizine [Antivert] 25 mg PO TID PRN PRN Reason: DIZZINESS Discontinued Furosemide [Lasix] 20 mg PO DAILY Discharge Medication List Anagrelide HCl [Agrylin] 0.5 mg PO BID 11/06/15 [History] Hydroxyurea [Hydrea] 500 mg PO SUTUTHSA 11/06/15 [History] Levothyroxine Sodium [Synthroid] 25 mcg PO DAILY@0600 11/06/15 [History] amLODIPine BESYLATE [Norvasc] 5 mg PO DAILY 11/06/15 [History] Hydroxyurea 1,000 mg PO MOWEFR 04/18/16 [History] Omeprazole 20 mg PO DAILY@0600 04/18/16 [History] Metoprolol Tartrate [Lopressor] 75 mg PO BID 09/03/17 [History] Vitamin A Red 1 cap PO BID 08/09/20 [History] Vitamin B Complex 1 cap PO DAILY 08/09/20 [History] Calcium Carbonate/Vitamin D3 [Calcium 500 mg-Vit D3 5 mcg (200 Unit)] 1 tab PO DAILY 08/16/20 [History] Aspirin 81 mg PO HS chew 08/17/20 [Rx] Lovastatin [Altoprev] 20 mg PO HS 11/24/20 [History] Meclizine [Antivert] 25 mg PO TID PRN 03/01/21 [History] Follow up Appointment(s)/Referral(s): Barrington Rivera MD [Primary Care Provider] - 1-2 days [facility] Visiting Nurse, [NON-STAFF] - 1 Week Sanchez Wolf MD [STAFF PHYSICIAN] - 1 Week Discharge Disposition: HOME WITH HOME HEALTH SERVICES
[2021-03-04] MEDS: HYDROcodone/APAP 5-325MG 1 EACH TAB PO PRN ×2 (17:57→22:15)
[2021-03-04] MEDS ORDERED: polyethylene glycoL 3350 17 GM POWD.PACK PO STA (18:06)
[2021-03-04] MEDS: ATORVASTATIN 10 MG TAB PO SCH (21:02)
[2021-03-04] MEDS: ASPIRIN 81 MG PO SCH (21:03)
[2021-03-05] MEDS: HYDROcodone/APAP 5-325MG 1 EACH TAB PO PRN ×2 (03:24→08:41)
[2021-03-05] MEDS: LEVOTHYROXINE 25 MCG TAB PO SCH (05:49)
[2021-03-05] MEDS: amLODIPine 5 MG TAB PO SCH (08:41)
[2021-03-05] MEDS: METOPROLOL TARTRATE 25 MG TAB PO SCH (08:41)
[2021-03-05] MEDS: MAGNESIUM OXIDE 400 MG TAB PO SCH (08:41)
[2021-03-05] MEDS: CALCIUM CARB-VIT D 500 MG-5 MCG TAB PO SCH (08:41)
[2021-03-05] MEDS: PANTOPRAZOLE 40 MG TABLET PO SCH (08:41)
[2021-03-05] MEDS: ENOXAPARIN 40 MG/0.4 ML SYRINGE SQ SCH (08:42)
[2021-03-05] MEDS: LIDOCAINE 5% PATCH TOPICAL SCH (08:42)
[2021-03-05] MEDS: FOLIC ACID-VIT B COMPLEX-VIT C 1 CAP PO SCH (08:52)
[2021-03-05] MEDS: HYDROXYUREA 500 MG CAP PO SCH (08:52)
[2021-03-05] MEDS: ANAGRELIDE 0.5 MG CAP PO SCH (08:52)
[2021-03-05] MEDS ORDERED: polyethylene glycoL 3350 17 GM POWD.PACK PO SCH (09:00)
[2021-03-05 09:28] LABS: African American GFR (CKD) >90 (>60 ml/min/1.73 sqM); Anion Gap 8 mmol/L; Blood Urea Nitrogen 13 mg/dL (7-17); Carbon Dioxide 29 mmol/L (22-30); Chloride 90 mmol/L (98-107); Glucose 152 mg/dL (74-99); Non-African American GFR(CKD) 82 (>60 ml/min/1.73 sqM); Potassium 5.1 mmol/L (3.5-5.1); Sodium 127 mmol/L (137-145)
[2021-03-05] MEDS ORDERED: SODIUM CHLORIDE TAB 1 GM TAB PO STA (10:09)
--- NOTE | 2021-03-05 11:31 | P.PN ---
Subjective Progress Note Date: 03/05/21 CHIEF COMPLAINT: Fall with rib fractures HISTORY OF PRESENT ILLNESS: This is a 85-year-old female who fell and had trauma to her right rib cage with evidence of nondisplaced fractures of ribs 8 and 9. Patient reports that her pain is controlled. She has been up and ambulating. She denies any nausea or vomiting. She is tolerating diet. Patient being followed by nephrology in regards to her hyponatremia. Afebrile. Sodium 127 PHYSICAL EXAM: VITAL SIGNS: Reviewed. GENERAL: Well-developed in no acute distress. HEENT: No sclera icterus. Extraocular movements grossly intact. Moist buccal mucosa. Head is atraumatic, normocephalic. ABDOMEN: Soft. Nondistended. Nontender. NEUROLOGIC: Alert and oriented. Cranial nerves II through XII grossly intact. ASSESSMENT: 1. Right-sided nondisplaced rib fractures of the eighth and ninth rib secondary to trauma from fall 2. Chronic large hiatal hernia 3. Hyponatremia PLAN: -Continue supportive care -No surgical intervention planned -Patient to follow-up with Dr. Wolf in the office in one week after discharge -Continue incentive spirometer -Encouraged patient to ambulate -Continue pain medication as needed -Hyponatremia management per nephrology -Patient can be discharged from Trauma surgery standpoint when cleared medically Physician Boring Machine Operator Vertical note has been reviewed by physician. Signing provider agrees with the documented findings, assessment, and plan of care. Objective - Vital Signs Vital signs: Vital Signs Temp 97.7 F 03/05/21 05:00 Pulse 79 03/05/21 05:00 Resp 16 03/05/21 05:00 BP 152/79 03/05/21 05:00 Pulse Ox 92 L 03/05/21 05:00 Intake & Output 03/04/21 03/05/21 03/05/21 18:59 06:59 18:59 Intake Total 1016 540 Balance 1016 540 Intake: Oral 1016 540 Other: Voiding Method Toilet Toilet # Voids 1 # Bowel Movements 0 - Labs CBC & Chem 7: 03/03/21 05:00 03/05/21 08:37 Labs: Abnormal Lab Results - Last 24 Hours (Table) 03/05/21 Range/Units 08:37 Sodium 127 L (137-145) mmol/L Chloride 90 L (98-107) mmol/L Glucose 152 H (74-99) mg/dL
[2021-03-05 12:10] VITALS: BP 125/62; PULSE 73; RESP 17; TEMP 98.1
--- NOTE | 2021-03-05 12:19 | P.DS ---
Providers Date of admission: 03/01/21 09:32 Expected date of discharge: 03/05/21 Attending physician: Brie Cifuentes DO Consults: 03/01/21 09:33 Consult Physician Urgent Consulting Provider: Sanchez Wolf Consult Reason/Comments: Trauma, rib fracture Do you want consulting provider notified?: Yes 03/02/21 08:35 Consult Physician Routine Consulting Provider: Brenda Thompson Consult Reason/Comments: hyponatremia Do you want consulting provider notified?: Yes Primary care physician: Barrington Rivera MD Hospital Course: Discharge orders from yesterday was discontinued as patient did not have power at home and her family were not able to make arrangements to take her anywhere until today where she will be discharged to her granddaughter's house in a stable condition. Her sodium level dropped slightly today to 127. Patient advised to repeat BMP early next week with her PCP. Patient is in 80s initial female with history of hypertension, dyslipidemia, and leukemia presented to the emergency department with complaints of multiple falls and rib pain. In the ER she underwent an extensive evaluation. On arrival she was hypertensive with a blood pressure of 178/90. Chest x-ray demonstrated right lateral eighth and ninth nondisplaced rib fractures, COPD, and known large hiatal hernia. KUB demonstrated ileitis or enteritis, intrathoracic stomach with some air-fluid levels. Below is a list of her medical problems addressed during this hospitalization Hyponatremia Weakness Fall Hypothyroidism Right rib fractures - Status post IV fluid, discontinue lasix, consulted nephrology s/p Samsca GERD HLD - statin HTN - lopressor - norvasc Vertigo - as needed antivert Patient was seen and evaluated by PT/OT. She'll be discharged home in a stable condition. Home healthcare set up. Physical exam: General: The patient is awake and alert, in no distress Eye: there is normal conjunctiva bilaterally. Neck: The neck is supple, there is no JVD. Cardiovascular: Normal S1-S2, no S3-S4, no murmurs. Respiratory: Lungs clear to auscultation bilaterally Gastrointestinal: Abdomen is soft, nontender Musculoskeletal: There is no pedal edema. Neurological:. Speech is normal. Skin: Skin is warm and dry Patient Condition at Discharge: Fair Plan - Discharge Summary Discharge Rx Participant: No New Discharge Prescriptions: Continue amLODIPine BESYLATE [Norvasc] 5 mg PO DAILY Hydroxyurea [Hydrea] 500 mg PO SUTUTHSA Levothyroxine Sodium [Synthroid] 25 mcg PO DAILY@0600 Anagrelide HCl [Agrylin] 0.5 mg PO BID Omeprazole 20 mg PO DAILY@0600 Hydroxyurea 1,000 mg PO MOWEFR Metoprolol Tartrate [Lopressor] 75 mg PO BID Vitamin B Complex 1 cap PO DAILY Vitamin A Red 1 cap PO BID Calcium Carbonate/Vitamin D3 [Calcium 500 mg-Vit D3 5 mcg (200 Unit)] 1 tab PO DAILY Aspirin 81 mg PO HS chew Lovastatin [Altoprev] 20 mg PO HS Meclizine [Antivert] 25 mg PO TID PRN PRN Reason: DIZZINESS Discontinued Furosemide [Lasix] 20 mg PO DAILY Discharge Medication List Anagrelide HCl [Agrylin] 0.5 mg PO BID 11/06/15 [History] Hydroxyurea [Hydrea] 500 mg PO SUTUTHSA 11/06/15 [History] Levothyroxine Sodium [Synthroid] 25 mcg PO DAILY@0600 11/06/15 [History] amLODIPine BESYLATE [Norvasc] 5 mg PO DAILY 11/06/15 [History] Hydroxyurea 1,000 mg PO MOWEFR 04/18/16 [History] Omeprazole 20 mg PO DAILY@0600 04/18/16 [History] Metoprolol Tartrate [Lopressor] 75 mg PO BID 09/03/17 [History] Vitamin A Red 1 cap PO BID 08/09/20 [History] Vitamin B Complex 1 cap PO DAILY 08/09/20 [History] Calcium Carbonate/Vitamin D3 [Calcium 500 mg-Vit D3 5 mcg (200 Unit)] 1 tab PO DAILY 08/16/20 [History] Aspirin 81 mg PO HS chew 08/17/20 [Rx] Lovastatin [Altoprev] 20 mg PO HS 11/24/20 [History] Meclizine [Antivert] 25 mg PO TID PRN 03/01/21 [History] Follow up Appointment(s)/Referral(s): Barrington Rivera MD [Primary Care Provider] - 1-2 days (power outage office is closed.patient will have to call and schedule own appt.) [facility] Visiting Nurse, [NON-STAFF] - 1 Week Sanchez Wolf MD [STAFF PHYSICIAN] - 03/11/21 2:45 pm Patient Instructions/Handouts: Pain Management in Older Adults (DC), Rib Fracture (DC), Hyponatremia (DC), Fall Prevention for Older Adults (DC) Activity/Diet/Wound Care/Special Instructions: Continue with fluid restriction of 1500ml per day Discharge Disposition: HOME WITH HOME HEALTH SERVICES
[2021-03-05] MEDS ORDERED: LACTULOSE 20 GM/30 ML CUP PO ONE (14:12)
--- NOTE | 2021-03-05 20:35 | PN ---
PROGRESS NOTE Patient is seen for followup for hyponatremia associated with decreased oral intake and low urinary osmoles, significantly improved with sodium chloride tabs. The patient's sodium was up to 131 and she is being discharged today. However, today her sodium is down to 127. She did get a dose of sodium chloride tab again today. PHYSICAL EXAMINATION: Blood pressure was 125/62, heart rate 73 per minute. Patient is afebrile. EXAMINATION OF THE HEART: S1 and S2. EXAMINATION OF LUNGS: Bilateral breath sounds are heard. ABDOMEN: Soft, nontender. LOWER EXTREMITIES: Examination of lower extremities shows no evidence of edema. TAX COMPLIANCE REPRESENTATIVE EXAM: Grossly intact. LABS: Labs show sodium 127, potassium 5.1, BUN 13, serum creatinine 0.6. ASSESSMENT: 1. 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 Sodium 127 today. We will repeat a dose of sodium chloride and patient will be continued on fluid restriction. Will repeat sodium as outpatient in 3-4 days post discharge. 2. Hypertension, better controlled. 3. Right rib fractures with controlled pain. 4. Gastroesophageal reflux disease. PLAN: Repeat sodium chloride tab 1 gram x1. Repeat labs as outpatient. Continue with fluid restriction. MMODL / IJN: [id number] /
== END 2021-03-05 14:45 | disposition home health service (06) | DRG 184 ==
LOC: EC 06:53 → 5NMEDONC 09:32
PROVIDERS: ADMIT Internal Medicine; ATTEND Internal Medicine
DX: S22.41XA Multiple fractures of ribs, right side, initial encounter for closed fracture (principal); E87.1 Hypo-osmolality and hyponatremia; T21.04XA Burn of unspecified degree of lower back, initial encounter; K44.9 Diaphragmatic hernia without obstruction or gangrene; I10 Essential (primary) hypertension; K52.9 Noninfective gastroenteritis and colitis, unspecified; J44.9 Chronic obstructive pulmonary disease, unspecified; D47.3 Essential (hemorrhagic) thrombocythemia; E87.5 Hyperkalemia; E87.6 Hypokalemia; Z66 Do not resuscitate; K59.00 Constipation, unspecified; Z20.822 Contact with and (suspected) exposure to COVID-19; K21.9 Gastro-esophageal reflux disease without esophagitis; E03.9 Hypothyroidism, unspecified; R79.89 Other specified abnormal findings of blood chemistry; E78.5 Hyperlipidemia, unspecified; E83.42 Hypomagnesemia; R42 Dizziness and giddiness; R29.6 Repeated falls; W01.0XXA Fall on same level from slipping, tripping and stumbling without subsequent striking against object, initial encounter; X15.8XXA Contact with other hot household appliances, initial encounter; Z79.82 Long term (current) use of aspirin; Z79.890 Hormone replacement therapy; Z79.899 Other long term (current) drug therapy; Z85.6 Personal history of leukemia; Z96.652 Presence of left artificial knee joint; Z86.73 Personal history of transient ischemic attack (TIA), and cerebral infarction without residual deficits; Z87.01 Personal history of pneumonia (recurrent); Z88.2 Allergy status to sulfonamides; Z98.42 Cataract extraction status, left eye; Y92.019 Unspecified place in single-family (private) house as the place of occurrence of the external cause
CPT/HCPCS: 36415; 74018; 80048; 80053; 81003; 82150; 83690; 83735; 83935; 84100; 84132; 84295; 84439; 84443; 85025; 85027; 87635; 96361; 96374; 99285

== ENCOUNTER → 2021-03-16 | Outpatient (CLI) | payer MEDICARE, BC ==
[2021-03-17 11:53] LABS: African American GFR (CKD) 73.6 (60.0-200.0); Anion Gap 22.3 mmol/L (4.00-12.00); BUN/Creat Ratio 19.3 Ratio (12.00-20.00); Blood Urea Nitrogen 16.1 mg/dL (9.0-27.0); Calcium 10.9 mg/dL (8.7-10.3); Non-African American GFR(CKD) 63.5 (60.0-200.0); Potassium 4.8 mmol/L (3.5-5.5)
== END | disposition home or self-care (01) ==
LOC: LABWHC1 09:19
PROVIDERS: ATTEND Internal Medicine
DX: I10 Essential (primary) hypertension (principal)
CPT/HCPCS: 36415; 80048

== ENCOUNTER 2021-12-31 13:19 | Observation (INO) | payer MEDICARE, BC ==
[2021-12-31] MEDS ORDERED: NITROGLYCERIN OINT 1 INCH/GM PACKET TOPICAL STA (13:22)
[2021-12-31] MEDS ORDERED: ASPIRIN 81 MG PO STA (13:22)
--- NOTE | 2021-12-31 13:39 | ED ---
General Adult HPI - General Chief complaint: Chest Pain Stated complaint: chest pressure Time Seen by Provider: 12/31/21 13:19 Source: patient, RN notes reviewed, old records reviewed Mode of arrival: ambulatory Limitations: no limitations - History of Present Illness Initial comments: This is an 86-year-old female who has been having intermittent chest pain since 2:30 AM. Patient states she's also shortness of breath associated with it. Patient states the chest pain seems to come on anytime she gets up and starts walking around. Patient states at rest it goes away. Patient denies any radiation of the pain. Patient denies any diaphoretic episodes. Patient denies abdominal pain patient denies nausea vomiting diarrhea. Patient states curren tly she is having no symptoms whatsoever. According to the nursing staff there one point time her heart rate was 130 beats a minute however now it is under 100 beats a minute according to EMS. Patient denies any recent fever chills or cough. Patient denies any lightheadedness dizziness or near syncopal episode. Patient denies any calf pain or leg swelling. - Related Data Home Medications Medication Instructions Recorded Confirmed Anagrelide HCl [Agrylin] 0.5 mg PO BID@0800,1700 11/06/15 12/31/21 Hydroxyurea [Hydrea] 500 mg PO SUTUTHSA@0800 11/06/15 12/31/21 Levothyroxine Sodium [Synthroid] 25 mcg PO DAILY@0800 11/06/15 12/31/21 amLODIPine BESYLATE [Norvasc] 5 mg PO DAILY@0800 11/06/15 12/31/21 Hydroxyurea 1,000 mg PO MOWEFR@0800 04/18/16 12/31/21 Omeprazole 20 mg PO DAILY@0800 04/18/16 12/31/21 Vitamin B Complex 1 cap PO DAILY@1700 08/09/20 12/31/21 Lovastatin [Altoprev] 20 mg PO HS@2100 11/24/20 12/31/21 Acetaminophen [Tylenol] 650 mg PO Q4H PRN 12/31/21 12/31/21 Aspirin 81 mg PO DAILY@1700 12/31/21 12/31/21 Bumetanide [Bumex] 1 mg PO DAILY@0800 12/31/21 12/31/21 Calcium Carbonate 500 mg PO DAILY@0812/31/21 12/31/21 Cholecalciferol [Vitamin D3 (25 50 mcg PO DAILY@169912/31/21 12/31/21 Mcg = 1000 Iu)] Ensure Enlive 120 ml PO TID@0800,1200,1700 12/31/21 12/31/21 Fluticasone Nasal [place] [Flonase 2 spray EA NOSTRIL DAILY@79912/31/21 12/31/21 Nasal [place]] Lidocaine 5% Patch [Lidoderm] 1 patch TOPICAL DAILY@212912/31/21 12/31/21 Magnesium Hydroxide [Milk of 7,200 mg PO Q48H PRN 12/31/21 12/31/21 Magnesia Concentrate] Magnesium Oxide 400 mg PO DAILY@169912/31/21 12/31/21 Metoprolol Tartrate [Lopressor] 75 mg PO BID@0800,1700 12/31/21 12/31/21 Na Phos,M-B/Na Phos,Di-Ba [Fleet 133 ml RECTAL DAILY PRN 12/31/21 12/31/21 Adult] Ondansetron [Zofran] 4 mg PO Q6H PRN 12/31/21 12/31/21 Potassium Chloride [Potassium 10 meq PO DAILY@79912/31/21 12/31/21 Chloride ER] Sodium Chloride Tab 1 gm PO DAILY@79912/31/21 12/31/21 Vit C/E/Zn/Coppr/Lutein/Zeaxan 1 cap PO BID@0800,1700 12/31/21 12/31/21 [Preservision Areds 2 Softgel] Vitamin A Acetate [Vitamin A] 10,000 unit PO DAILY@0812/31/21 12/31/21 bisacodyL [Dulcolax] 10 mg RECTAL DAILY PRN 12/31/21 12/31/21 Allergies Allergy/AdvReac Type Severity Reaction Status Date / Time Sulfa (Sulfonamide Allergy Rash/Hives Verified 12/31/21 15:31 Antibiotics) Review of Systems ROS Statement: Those systems with pertinent positive or pertinent negative responses have been documented in the HPI. ROS Other: All systems not noted in ROS Statement are negative. Past Medical History Past Medical History: Blood Disorder, CVA/TIA, Hyperlipidemia, Hypertension, Pneumonia, Thyroid Disorder Additional Past Medical History / Comment(s): Follow with Dr. Phelps for elevated platelets History of Any Multi-Drug Resistant Organisms: None Reported Past Surgical History: Joint Replacement Additional Past Surgical History / Comment(s): left knee replacement, ovarian cysts removed, left cataracts, Past Anesthesia/Blood Transfusion Reactions: No Reported Reaction Past Psychological History: No Psychological Hx Reported Smoking Status: Never smoker Past Alcohol Use History: None Reported Past Drug Use History: None Reported - Past Family History Father Additional Family Medical History / Comment(s): old age Mother Additional Family Medical History / Comment(s): kidney disease General Exam - General Exam Comments Initial Comments: GENERAL: Patient is well-developed and well-nourished. Patient is nontoxic and well- hydrated and is in no acute distress. ENT: Neck is soft and supple. No significant lymphadenopathy is noted. Oropharynx is clear. Moist mucous membranes. Neck has full range of motion without eliciting any pain. EYES: The sclera were anicteric and conjunctiva were pink and moist. Extraocular movements were intact and pupils were equal round and reactive to light. Eyelids were unremarkable. PULMONARY: Unlabored respirations. Good breath sounds bilaterally. No audible rales rhonchi or wheezing was noted. CARDIOVASCULAR: There is a regular rate and rhythm without any murmurs gallops or rubs. ABDOMEN: Soft and nontender with normal bowel sounds. SKIN: Skin is clear with no lesions or rashes and otherwise unremarkable. NEUROLOGIC: Patient is alert and oriented x3. Cranial nerves II through XII are grossly intact. Motor and sensory are also intact. Normal speech, volume and content. Symmetrical smile. MUSCULOSKELETAL: Normal extremities with adequate strength and full range of motion. No lower extremity swelling or edema. No calf tenderness. LYMPHATICS: No significant lymphadenopathy is noted PSYCHIATRIC: Normal psychiatric evaluation. Limitations: no limitations Course Vital Signs 12/31/21 12/31/21 13:22 13:39 Temperature 98.1 F Pulse Rate 80 Respiratory 18 Rate Blood Pressure 170/80 Fraction of 2 Inspired Oxygen (FIO2) Medical Decision Making - Medical Decision Making EKG shows sinus rhythm at 77 bpm [place] interval 172 QRS is 1:30 for QT interval 392 QTC is 424. Patient's EKG shows a left bundle branch block. Chest x-ray shows no acute abnormality. She does have a hiatal hernia which was seen previously. Patient was chest pain free throughout the ED course however because of her intermittent chest pain with exertion throughout the day I kept the patient I spoke with Dr. Wood he agreed to admit the patient admitted the patient and consult cardiology. - Lab Data Result diagrams: 12/31/21 13:35 12/31/21 13:35 Lab Results 12/31/21 12/31/21 12/31/21 Range/Units 13:35 13:35 13:35 WBC 12.7 H (3.8-10.6) k/uL RBC 4.30 (3.80-5.40) m/uL Hgb 14.5 (11.4-16.0) gm/dL Hct 46.1 H (34.0-46.0) % MCV 107.3 H (80.0-100.0) fL MCH 33.8 (25.0-35.0) pg MCHC 31.5 (31.0-37.0) g/dL RDW 15.9 H (11.5-15.5) % Plt Count 371 (150-450) k/uL MPV 11.7 Neutrophils % (Manual) 53 % Lymphocytes % (Manual) 40 % Monocytes % (Manual) 5 % Eosinophils % (Manual) 2 % Neutrophils # (Manual) 6.73 (1.3-7.7) k/uL Lymphocytes # (Manual) 5.08 H (1.0-4.8) k/uL Monocytes # (Manual) 0.64 (0-1.0) k/uL Eosinophils # (Manual) 0.25 (0-0.7) k/uL Nucleated RBCs 0 (0-0) /100 WBC Manual Slide Review Performed Large Platelets Present Hypochromasia Slight Macrocytosis Marked A Target Cells Present PT 10.5 (9.0-12.0) sec INR 1.0 (<1.2) APTT 26.4 (22.0-30.0) sec Sodium 132 L (137-145) mmol/L Potassium 4.9 (3.5-5.1) mmol/L Chloride 94 L (98-107) mmol/L Carbon Dioxide 30 (22-30) mmol/L Anion Gap 8 mmol/L BUN 30 H (7-17) mg/dL Creatinine 0.79 (0.52-1.04) mg/dL Est GFR (CKD-EPI)AfAm 79 (>60 ml/min/1.73 sqM) Est GFR (CKD-EPI)NonAf 68 (>60 ml/min/1.73 sqM) Glucose 104 H (74-99) mg/dL Calcium 9.4 (8.4-10.2) mg/dL Magnesium 1.5 L (1.6-2.3) mg/dL Total Bilirubin 0.3 (0.2-1.3) mg/dL AST 28 (14-36) U/L ALT 14 (4-34) U/L Alkaline Phosphatase 106 (38-126) U/L Troponin I (0.000-0.034) ng/mL Total Protein 7.6 (6.3-8.2) g/dL Albumin 4.4 (3.5-5.0) g/dL 12/31/21 Range/Units 13:35 WBC (3.8-10.6) k/uL RBC (3.80-5.40) m/uL Hgb (11.4-16.0) gm/dL Hct (34.0-46.0) % MCV (80.0-100.0) fL MCH (25.0-35.0) pg MCHC (31.0-37.0) g/dL RDW (11.5-15.5) % Plt Count (150-450) k/uL MPV Neutrophils % (Manual) % Lymphocytes % (Manual) % Monocytes % (Manual) % Eosinophils % (Manual) % Neutrophils # (Manual) (1.3-7.7) k/uL Lymphocytes # (Manual) (1.0-4.8) k/uL Monocytes # (Manual) (0-1.0) k/uL Eosinophils # (Manual) (0-0.7) k/uL Nucleated RBCs (0-0) /100 WBC Manual Slide Review Large Platelets Hypochromasia Macrocytosis Target Cells PT (9.0-12.0) sec INR (<1.2) APTT (22.0-30.0) sec Sodium (137-145) mmol/L Potassium (3.5-5.1) mmol/L Chloride (98-107) mmol/L Carbon Dioxide (22-30) mmol/L Anion Gap mmol/L BUN (7-17) mg/dL Creatinine (0.52-1.04) mg/dL Est GFR (CKD-EPI)AfAm (>60 ml/min/1.73 sqM) Est GFR (CKD-EPI)NonAf (>60 ml/min/1.73 sqM) Glucose (74-99) mg/dL Calcium (8.4-10.2) mg/dL Magnesium (1.6-2.3) mg/dL Total Bilirubin (0.2-1.3) mg/dL AST (14-36) U/L ALT (4-34) U/L Alkaline Phosphatase (38-126) U/L Troponin I <0.012 (0.000-0.034) ng/mL Total Protein (6.3-8.2) g/dL Albumin (3.5-5.0) g/dL Disposition Clinical Impression: Chest pain Disposition: ADMITTED IP TO THIS [facility] Referrals: Doug Wood MD [Primary Care Provider] - 1-2 days Time of Disposition: 16:20
[2021-12-31 13:56] LABS: Partial Thromboplastin Time 26.4 sec (22.0-30.0); Prothrombin Time 10.5 sec (9.0-12.0)
[2021-12-31 13:58] LABS: Albumin 4.4 g/dL (3.5-5.0); Calcium 9.4 mg/dL (8.4-10.2); HCT 46.1 % (34.0-46.0); HGB 14.5 gm/dL (11.4-16.0); Hypochromasia Slight; MCH 33.8 pg (25.0-35.0); MCHC 31.5 g/dL (31.0-37.0); MCV 107.3 fL (80.0-100.0); Macrocytosis Marked; Magnesium 1.5 mg/dL (1.6-2.3); Mean Platelet Volume 11.7; Platelet Count 371 k/uL (150-450); Potassium 4.9 mmol/L (3.5-5.1); RDW 15.9 % (11.5-15.5); Total Bilirubin 0.3 mg/dL (0.2-1.3); Total Protein 7.6 g/dL (6.3-8.2); WBC 12.7 k/uL (3.8-10.6)
--- NOTE | 2021-12-31 14:31 | XR ---
EXAMINATION TYPE: XR chest 2V DATE OF EXAM: 12/31/2021 COMPARISON: Chest x-ray dated 03/01/2021 HISTORY: Chest pain TECHNIQUE: Frontal and lateral views of the chest are obtained. FINDINGS: Patient is markedly rotated. Lung volumes are low. There are overlying leads. Heart size m ay be stable. No evident pneumothorax. Retrocardiac density with some lucencies present which likely represents hiatal hernia. No evident effusion. Bandlike area of increased attenuation in the right mi dlung may represent atelectasis or scar. IMPRESSION: Hiatal hernia with partial intrathoracic stomach. No definite acute abnormality.
[2021-12-31 15:01] LABS: Eosinophils # (M) 0.25 k/uL (0-0.7); Large Platelets Present; Lymphocytes # (M) 5.08 k/uL (1.0-4.8); Monocytes # (M) 0.64 k/uL (0-1.0); Neutrophils # (M) 6.73 k/uL (1.3-7.7); Neutrophils % (M) 53 %; Nucleated Red Blood Cells 0 /100 WBC (0-0); Target Cells Present; Total Cells Counted 100
[2021-12-31] MEDS ORDERED: NITROGLYCERIN SL TABS 0.4 MG TAB SUBLINGUAL PRN (16:42)
[2021-12-31] MEDS ORDERED: bisacodyL 10 MG SUPP RECTAL PRN (20:51)
[2021-12-31] MEDS ORDERED: MAGNESIUM HYDROXIDE 2,400 MG/10 ML CUP PO PRN (20:51)
[2021-12-31] MEDS ORDERED: FUROSEMIDE 20 MG TAB PO STA (20:56)
[2021-12-31] MEDS: NITROGLYCERIN OINT 1 INCH/GM PACKET TOPICAL SCH ×2 (21:32→23:42)
[2021-12-31] MEDS: METOPROLOL TARTRATE 25 MG TAB PO SCH (21:35)
[2021-12-31] MEDS: ATORVASTATIN 10 MG TAB PO SCH (21:35)
[2021-12-31] MEDS: ACETAMINOPHEN TAB 325 MG TAB PO PRN (21:42)
[2022-01-01] MEDS: NITROGLYCERIN OINT 1 INCH/GM PACKET TOPICAL SCH ×4 (06:11→23:49)
[2022-01-01] MEDS: ACETAMINOPHEN TAB 325 MG TAB PO PRN (08:08)
[2022-01-01] MEDS: FUROSEMIDE 40 MG TAB PO SCH ×2 (08:09→16:18)
[2022-01-01] MEDS: METOPROLOL TARTRATE 25 MG TAB PO SCH ×2 (08:09→17:29)
[2022-01-01] MEDS: amLODIPine 5 MG TAB PO SCH (08:09)
[2022-01-01] MEDS: LEVOTHYROXINE 25 MCG TAB PO SCH (08:09)
[2022-01-01] MEDS: POTASSIUM CHLORIDE ER 10 MEQ TAB.ER.PRT PO SCH (08:10)
[2022-01-01] MEDS: PANTOPRAZOLE 40 MG TABLET PO SCH (08:10)
[2022-01-01] MEDS: ANAGRELIDE 0.5 MG CAP PO SCH ×2 (08:10→17:29)
[2022-01-01] MEDS ORDERED: ASPIRIN 325 MG TAB PO SCH (09:00)
[2022-01-01 09:44] LABS: Chol/HDL Ratio 2.38 Ratio; LDL Cholesterol,Calculated 37.1 mg/dL (0.0-131.0); VLDL Calculation 17.12 mg/dL (5.00-40.00)
[2022-01-01] MEDS: CALCIUM CARBONATE 500 MG CHEWABLE PO PRN ×3 (12:45→21:46)
--- NOTE | 2022-01-01 13:22 | CA ---
Transthoracic Echo Report Name: Bryant Ovalle Age: 86 Gender: F : 1935 Exam Date: 01/01/2022 10:49 Exam Location: [facility] Ht (in): 67 Wt (lb): 141 Ordering Physician: Humphrey Butler MD ([id number]) Attending/Referring Phys: Carrie HENNING Pheresis Nurse Patricia Perales RDCS Procedure CPT: Indications: Chest Pain Cardiac Hx: Technical Quality: Fair Contrast 1: Total Dose (mL): Contrast 2: Total Dose (mL): MEASUREMENTS (Male / Female) Normal Values 2D ECHO LV Diastolic Diameter PLAX 2.7 cm 4.2 - 5.9 / 3.9 - 5.3 cm LV Systolic Diameter PLAX 1.8 cm IVS Diastolic Thickness 1.4 cm 0.6 - 1.0 / 0.6 - 0.9 cm LVPW Diastolic Thickness 1.2 cm 0.6 - 1.0 / 0.6 - 0.9 cm LV Relative Wall Thickness 1.0 LA Volume 79.1 cm??? 18 - 58 / 22 - 52 cm??? M-MODE Aortic Root Diameter MM 2.7 cm LA Systolic Diameter MM 4.7 cm LA Ao Ratio MM 1.7 AV Cusp Separation MM 1.2 cm DOPPLER AV Peak Velocity 225.4 cm/s AV Peak Gradient 20.3 mmHg AV Mean Velocity 174.2 cm/s AV Mean Gradient 13.1 mmHg AV Velocity Time Integral 45.1 cm LVOT Peak Velocity 110.0 cm/s LVOT Peak Gradient 4.8 mmHg MV Area PHT 3.9 cm??? Mitral E Point Velocity 93.9 cm/s Mitral A Point Velocity 150.3 cm/s Mitral E to A Ratio 0.6 MV Deceleration Time 194.7 ms TR Peak Velocity 249.6 cm/s TR Peak Gradient 24.9 mmHg Right Ventricular Systolic Press 29.9 mmHg FINDINGS Left Ventricle Moderately increased left ventricular wall thickness. Normal left ventricular systolic function with no obvious regional wall motion abnormalities. Left ventricular ejection fraction is estimated at 50-55 %. Right Ventricle Normal right ventricular size and function. Right ventricular systolic pressure within normal limits. Right Atrium Right atrium not well visualized. Left Atrium Severely increased left atrial volume. No evidence for an atrial septal defect. Mitral Valve Moderate mitral annular calcification. Moderate mitral regurgitation. Aortic Valve Trace to mild aortic regurgitation. Mild aortic stenosis with a peak gradient of 20 mmHg and a mean gradient of 13 mmHg. Tricuspid Valve No tricuspid stenosis, regurgitation or prolapse. Mild tricuspid regurgitation. Pulmonic Valve Structurally normal pulmonic valve. Trace pulmonic regurgitation. Pericardium No pericardial effusion. Aorta Normal size aortic root and proximal ascending aorta. CONCLUSIONS Concentric left ventricular hypertrophy with normal LV function. Left atrial enlargement. I aortic sclerosis with mild aortic stenosis my clinic calcification with moderate mitral regurgitation Previewed by: Dr. Humphrye Butler MD (Electronically Signed) Final Date: 01 January 2022 13:20
[2022-01-01] MEDS ORDERED: RX INFO: IV CONTRAST WAS GIVEN 1 EACH MISC MISCELLANE PRN (14:24)
--- NOTE | 2022-01-01 14:27 | P.HPIM ---
History of Present Illness H&P Date: 01/01/22 Chief Complaint: Chest pain This is an 86-year-old pleasant lady, patient of Dr. Wood, currently resides at [facility],. Underlying history of CVA TIA hypothyroidism, and thrombocytosis, follows by oncology, was sent in from [facility] secondary to chest pain. Apparently she was noted to have a heart rate between 100-130 over there, and was subsequently sent in, 4 monitory. Patient has chest discomfort whenever she walks and stands or ambulates, it started at 2:30 in the morning, incidentally she also has some hiatal hernia, with intrathoracic stomach is on imaging. Froilan ashby denies any lightheadedness dizziness, no falls, no syncope. No calf, or swelling the leg. Or pain in the leg. Patient is seen in the emergency room, with consult to cardiology Previous review of imaging, 02/06/2019, COPD noted, there is a 4 mm right upper lobe pulmonary nodule, and another 4 mm right upper lobe pulmonary nodule, there is a very large hiatal hernia, containing the entire stomach, and distal half of the transverse colon In emergency room, double basic count is 12.7 hemoglobin 14, MCV 107 iron and 1.0, troponin, creatinine 0.7, liver function tests normal, sodium below 132 EKG, sinus rhythm 77, with AZ interval 172, QTC 392, left bundle branch block which is new ASSESSMENT AND PLAN 1. Chest pain, with new left bundle branch block, episode of tachycardia, patient will be seen consultation by cardiology, echocardiogram is requested, brittney for TSH, troponins are negative 3, LDL of 37, continue metoprolol 75 mg twice a day, nitro when necessary, aspirin 81 mg daily and check fo CT of the chest, for pulmonary nodules that was noted 2. Hypomagnesemia replacements 3. Prior history of TIA 4. Very large Hiatal hernia, intrathoracic stomach left side, patient can get Protonix, and Tums when necessary Pulmonary nodule, noted in 2019, follow-up CT, chest with contrast Hyperlipidemia, on Lipitor 10 mg daily Hypothyroidism check for TSH patient is on levothyroxine 25 g daily Leukocytosis, check for urinalysis, also has elevation of red blood cell volume, check for vitamin B 12, patient has target cells. Review of Systems Constitutional: Reports as per HPI, Denies malaise, Denies night sweats, Denies poor appetite, Denies weight gain Ears, nose, mouth and throat: Reports as per HPI, Denies ant. neck pain, Denies headache, Denies odynophagia Cardiovascular: Reports as per HPI, Reports chest pain, Denies irregular heart beat, Denies leg edema, Denies rapid heart beat Respiratory: Reports as per HPI, Reports dyspnea, Reports pain Gastrointestinal: Reports as per HPI, Reports indigestion, Denies hematemesis, Denies hematochezia, Denies jaundice, Denies melena, Denies nausea, Denies vomiting Genitourinary: Reports as per HPI, Denies kidney stones Menstruation: Reports as per HPI, Reports postmenopausal Musculoskeletal: Reports gait dysfunction, Denies limitation of motion, Denies prior amputations Integumentary: Reports as per HPI Neurological: Reports as per HPI, Denies aphasia, Denies ataxia, Denies balance difficulties, Denies burning pain, Denies change in mentation, Denies change in smell/taste, Denies change in speech, Denies confusion, Denies convulsions, Denies double vision, Denies gait dysfunction, Denies head injury, Denies he adaches, Denies hearing difficulties, Denies lack of coordination, Denies loss of vision, Denies memory loss, Denies migraines, Denies motor disturbance, Denies numbness, Denies paralysis, Denies paresthesias, Denies seizures, Denies sensory deficit, Denies spasticity, Denies syncope, Denies tic, Denies tingling, Denies transient paralysis, Denies tremors, Denies vertigo, Denies weakness, Denies visual changes Psychiatric: Reports as per HPI Endocrine: Reports as per HPI Hematologic/Lymphatic: Reports as per HPI Allergic/Immunologic: Reports as per HPI Past Medical History Past Medical History: Blood Disorder, CVA/TIA, Hyperlipidemia, Hypertension, Pne umonia, Thyroid Disorder Additional Past Medical History / Comment(s): Follow with Dr. Phelps for elevated platelets History of Any Multi-Drug Resistant Organisms: None Reported Past Surgical History: Joint Replacement Additional Past Surgical History / Comment(s): left knee replacement, ovarian cysts removed, left cataracts, pt states "abnormal heart rhythm" Past Anesthesia/Blood Transfusion Reactions: No Reported Reaction Additional Past Anesthesia/Blood Transfusion Reaction / Comment(s): Pt states she will not take any blood transfusions per her religous views. Past Psychological History: No Psychological Hx Reported Smoking Status: Never smoker Past Alcohol Use History: None Reported Past Drug Use History: None Reported - Past Family History Father History Unknown: Yes (Father with heart disease, mother with ovarian cancer, sister with tuberculosis, and bladder cancer, brother with CAD, 3 daughters one of them has AML) Additional Family Medical History / Comment(s): old age Mother Additional Family Medical History / Comment(s): kidney disease Medications and Allergies Home Medications Medication Instructions Recorded Confirmed Type Anagrelide HCl [Agrylin] 0.5 mg PO BID@0800,1700 11/06/15 12/31/21 History Hydroxyurea [Hydrea] 500 mg PO SUTUTHSA@0811/06/15 12/31/21 History Levothyroxine Sodium [Synthroid] 25 mcg PO DAILY@0811/06/15 12/31/21 History amLODIPine BESYLATE [Norvasc] 5 mg PO DAILY@0811/06/15 12/31/21 History Hydroxyurea 1,000 mg PO MOWEFR@0800 04/18/16 12/31/21 History Omeprazole 20 mg PO DAILY@0800 04/18/16 12/31/21 History Vitamin B Complex 1 cap PO DAILY@1700 08/09/20 12/31/21 History Lovastatin [Altoprev] 20 mg PO HS@2100 11/24/20 12/31/21 History Acetaminophen [Tylenol] 650 mg PO Q4H PRN 12/31/21 12/31/21 History Aspirin 81 mg PO DAILY@17012/31/21 12/31/21 History Bumetanide [Bumex] 1 mg PO DAILY@0812/31/21 12/31/21 History Calcium Carbonate 500 mg PO DAILY@0812/31/21 12/31/21 History Cholecalciferol [Vitamin D3 (25 50 mcg PO DAILY@169912/31/21 12/31/21 History Mcg = 1000 Iu)] Ensure Enlive 120 ml PO TID@0800,1200,1700 12/31/21 12/31/21 History Fluticasone Nasal [place] [Flonase 2 spray EA NOSTRIL DAILY@0812/31/21 12/31/21 History Nasal [place]] Lidocaine 5% Patch [Lidoderm] 1 patch TOPICAL DAILY@21312/31/21 12/31/21 History Magnesium Hydroxide [Milk of 7,200 mg PO Q48H PRN 12/31/21 12/31/21 History Magnesia Concentrate] Magnesium Oxide 400 mg PO DAILY@169912/31/21 12/31/21 History Metoprolol Tartrate [Lopressor] 75 mg PO BID@0800,1700 12/31/21 12/31/21 History Na Phos,M-B/Na Phos,Di-Ba [Fleet 133 ml RECTAL DAILY PRN 12/31/21 12/31/21 History Adult] Ondansetron [Zofran] 4 mg PO Q6H PRN 12/31/21 12/31/21 History Potassium Chloride [Potassium 10 meq PO DAILY@0812/31/21 12/31/21 History Chloride ER] Sodium Chloride Tab 1 gm PO DAILY@0800 12/31/21 12/31/21 History Vit C/E/Zn/Coppr/Lutein/Zeaxan 1 cap PO BID@0800,1700 12/31/21 12/31/21 History [Preservision Areds 2 Softgel] Vitamin A Acetate [Vitamin A] 10,000 unit PO DAILY@0800 12/31/21 12/31/21 History bisacodyL [Dulcolax] 10 mg RECTAL DAILY PRN 12/31/21 12/31/21 History Allergies Allergy/AdvReac Type Severity Reaction Status Date / Time Sulfa (Sulfonamide Allergy Rash/Hives Verified 12/31/21 15:31 Antibiotics) Physical Exam Vitals: Vital Signs Temp Pulse Pulse Resp BP BP Pulse Ox 01/01/22 07:00 98.1 F 91 17 148/76 94 L 01/01/22 02:45 98.1 F 84 17 134/68 95 01/01/22 02:00 84 17 12/31/21 20:00 18 12/31/21 19:00 98.1 F 99 17 123/69 94 L 12/31/21 17:01 85 18 160/87 100 12/31/21 13:39 12/31/21 13:22 98.1 F 80 18 170/80 FiO2 01/01/22 07:00 01/01/22 02:45 01/01/22 02:00 12/31/21 20:00 12/31/21 19:00 12/31/21 17:01 12/31/21 13:39 2 12/31/21 13:22 Intake and Output 12/31/21 01/01/22 01/01/22 22:59 06:59 14:59 Intake Total 120 Balance 120 Intake: Oral 120 Other: Voiding Method Toilet # Voids 1 2 # Bowel Movements 1 Weight 63.957 kg - Constitutional General appearance: average body habitus, cooperative, no acute distress - EENT ENT: hearing grossly normal, NA/AT, normal oropharynx - Neck Neck: normal ROM - Respiratory Respiratory: bilateral: CTA, negative: diminished, dullness - Cardiovascular Rhythm: regular Heart sounds: normal: S1, S2 Abnormal Heart Sounds: no systolic murmur, no diastolic murmur, no rub, no S3 G allop, no S4 Gallop, no click, no other - Gastrointestinal General gastrointestinal: organomegaly, soft - Integumentary Integumentary: decreased turgor, normal - Neurologic Neurologic: CNII-XII intact - Musculoskeletal Musculoskeletal: gait normal, strength equal bilaterally - Psychiatric Psychiatric: A&O x's 3, appropriate affect, intact judgment & insight Results CBC & Chem 7: 12/31/21 13:35 12/31/21 13:35 Labs: Abnormal Lab Results - Last 24 Hours (Table) 12/31/21 12/31/21 Range/Units 13:35 13:35 WBC 12.7 H (3.8-10.6) k/uL Hct 46.1 H (34.0-46.0) % MCV 107.3 H (80.0-100.0) fL RDW 15.9 H (11.5-15.5) % Lymphocytes # (Manual) 5.08 H (1.0-4.8) k/uL Macrocytosis Marked A Sodium 132 L (137-145) mmol/L Chloride 94 L (98-107) mmol/L BUN 30 H (7-17) mg/dL Glucose 104 H (74-99) mg/dL Magnesium 1.5 L (1.6-2.3) mg/dL Laboratory Tests Range/Units 12/31/21 12/31/21 12/31/21 13:35 13:35 13:35 WBC (3.8-10.6) k/uL 12.7 H RBC (3.80-5.40) m/uL 4.30 Hgb (11.4-16.0) gm/dL 14.5 Hct (34.0-46.0) % 46.1 H MCV (80.0-100.0) fL 107.3 H MCH (25.0-35.0) pg 33.8 MCHC (31.0-37.0) g/dL 31.5 RDW (11.5-15.5) % 15.9 H Plt Count (150-450) k/uL 371 MPV 11.7 Neutrophils % (Manual) % 53 Lymphocytes % (Manual) % 40 Monocytes % (Manual) % 5 Eosinophils % (Manual) % 2 Neutrophils # (Manual) (1.3-7.7) k/uL 6.73 Lymphocytes # (Manual) (1.0-4.8) k/uL 5.08 H Monocytes # (Manual) (0-1.0) k/uL 0.64 Eosinophils # (Manual) (0-0.7) k/uL 0.25 Nucleated RBCs (0-0) /100 WBC 0 Manual Slide Review Performed Large Platelets Present Hypochromasia Slight Macrocytosis Marked A Target Cells Present PT (9.0-12.0) sec 10.5 INR (<1.2) 1.0 APTT (22.0-30.0) sec 26.4 Sodium (137-145) mmol/L 132 L Potassium (3.5-5.1) mmol/L 4.9 Chloride (98-107) mmol/L 94 L Carbon Dioxide (22-30) mmol/L 30 Anion Gap mmol/L 8 BUN (7-17) mg/dL 30 H Creatinine (0.52-1.04) mg/dL 0.79 Est GFR (CKD-EPI)AfAm (>60 ml/min/1.73 sqM) 79 Est GFR (CKD-EPI)NonAf (>60 ml/min/1.73 sqM) 68 Glucose (74-99) mg/dL 104 H Calcium (8.4-10.2) mg/dL 9.4 Magnesium (1.6-2.3) mg/dL 1.5 L Total Bilirubin (0.2-1.3) mg/dL 0.3 AST (14-36) U/L 28 ALT (4-34) U/L 14 Alkaline Phosphatase (38-126) U/L 106 Troponin I (0.000-0.034) ng/mL Total Protein (6.3-8.2) g/dL 7.6 Albumin (3.5-5.0) g/dL 4.4 Triglycerides (0.00-149.00) mg/dL Cholesterol (0.00-200.00) mg/dL LDL Cholesterol, Calc (0.0-131.0) mg/dL VLDL Cholesterol, Calc (5.00-40.00) mg/dL HDL Cholesterol (40.00-60.00) mg/dL Cholesterol/HDL Ratio Ratio Range/Units 12/31/21 12/31/21 12/31/21 13:35 13:35 17:03 WBC (3.8-10.6) k/uL RBC (3.80-5.40) m/uL Hgb (11.4-16.0) gm/dL Hct (34.0-46.0) % MCV (80.0-100.0) fL MCH (25.0-35.0) pg MCHC (31.0-37.0) g/dL RDW (11.5-15.5) % Plt Count (150-450) k/uL MPV Neutrophils % (Manual) % Lymphocytes % (Manual) % Monocytes % (Manual) % Eosinophils % (Manual) % Neutrophils # (Manual) (1.3-7.7) k/uL Lymphocytes # (Manual) (1.0-4.8) k/uL Monocytes # (Manual) (0-1.0) k/uL Eosinophils # (Manual) (0-0.7) k/uL Nucleated RBCs (0-0) /100 WBC Manual Slide Review Large Platelets Hypochromasia Macrocytosis Target Cells PT (9.0-12.0) sec INR (<1.2) APTT (22.0-30.0) sec Sodium (137-145) mmol/L Potassium (3.5-5.1) mmol/L Chloride (98-107) mmol/L Carbon Dioxide (22-30) mmol/L Anion Gap mmol/L BUN (7-17) mg/dL Creatinine (0.52-1.04) mg/dL Est GFR (CKD-EPI)AfAm (>60 ml/min/1.73 sqM) Est GFR (CKD-EPI)NonAf (>60 ml/min/1.73 sqM) Glucose (74-99) mg/dL Calcium (8.4-10.2) mg/dL Magnesium (1.6-2.3) mg/dL Total Bilirubin (0.2-1.3) mg/dL AST (14-36) U/L ALT (4-34) U/L Alkaline Phosphatase (38-126) U/L Troponin I (0.000-0.034) ng/mL <0.012 <0.012 Total Protein (6.3-8.2) g/dL Albumin (3.5-5.0) g/dL Triglycerides (0.00-149.00) mg/dL 85.60 Cholesterol (0.00-200.00) mg/dL 94.00 LDL Cholesterol, Calc (0.0-131.0) mg/dL 37.1 VLDL Cholesterol, Calc (5.00-40.00) mg/dL 17.12 HDL Cholesterol (40.00-60.00) mg/dL 39.30 L Cholesterol/HDL Ratio Ratio 2.38 Range/Units 12/31/ 19:03 WBC (3.8-10.6) k/uL RBC (3.80-5.40) m/uL Hgb (11.4-16.0) gm/dL Hct (34.0-46.0) % MCV (80.0-100.0) fL MCH (25.0-35.0) pg MCHC (31.0-37.0) g/dL RDW (11.5-15.5) % Plt Count (150-450) k/uL MPV Neutrophils % (Manual) % Lymphocytes % (Manual) % Monocytes % (Manual) % Eosinophils % (Manual) % Neutrophils # (Manual) (1.3-7.7) k/uL Lymphocytes # (Manual) (1.0-4.8) k/uL Monocytes # (Manual) (0-1.0) k/uL Eosinophils # (Manual) (0-0.7) k/uL Nucleated RBCs (0-0) /100 WBC Manual Slide Review Large Platelets Hypochromasia Macrocytosis Target Cells PT (9.0-12.0) sec INR (<1.2) APTT (22.0-30.0) sec Sodium (137-145) mmol/L Potassium (3.5-5.1) mmol/L Chloride (98-107) mmol/L Carbon Dioxide (22-30) mmol/L Anion Gap mmol/L BUN (7-17) mg/dL Creatinine (0.52-1.04) mg/dL Est GFR (CKD-EPI)AfAm (>60 ml/min/1.73 sqM) Est GFR (CKD-EPI)NonAf (>60 ml/min/1.73 sqM) Glucose (74-99) mg/dL Calcium (8.4-10.2) mg/dL Magnesium (1.6-2.3) mg/dL Total Bilirubin (0.2-1.3) mg/dL AST (14-36) U/L ALT (4-34) U/L Alkaline Phosphatase (38-126) U/L Troponin I (0.000-0.034) ng/mL <0.012 Total Protein (6.3-8.2) g/dL Albumin (3.5-5.0) g/dL Triglycerides (0.00-149.00) mg/dL Cholesterol (0.00-200.00) mg/dL LDL Cholesterol, Calc (0.0-131.0) mg/dL VLDL Cholesterol, Calc (5.00-40.00) mg/dL HDL Cholesterol (40.00-60.00) mg/dL Cholesterol/HDL Ratio Ratio Thrombosis Risk Factor Assmnt - Choose All That Apply Any of the Below Risk Factors Present?: Yes Each Factor Represents 1 point: Swollen legs (current) Each Risk Factor Represents 3 Points: Age 75 years or older Thrombosis Risk Factor Assessment Total Risk Factor Score: 4 Thrombosis Risk Factor Assessment Level: Moderate Risk
--- NOTE | 2022-01-01 16:05 | CT ---
EXAMINATION TYPE: CT chest w con CT DLP: 134.1 mGycm, Automated exposure control for dose reduction was used. DATE OF EXAM: 01/01/2022 3:33 PM COMPARISON: CT chest 02/06/2019. CLINICAL INDICATION:Female, 86 years old with history of Pulmonary nodule, chest pain leukocytosis; TECHNIQUE: Multiple axial images were obtained through the chest following the administration of 100 cc of Isovue 300. Coronal and sagittal reformats reviewed. FINDINGS: LUNGS/ PLEURA: No pneumothorax or pleural effusion. No focal consolidation. Stable peripheral left up per lobe groundglass nodule (series 4, image 16). Previously demonstrated right upper lobe nodule is less conspicuous on today's exam. No new or enlarging pulmonary nodules. Right apical scarring. Right basilar subsegmental atelectasis. AIRWAY: Patent and unremarkable. HEART: The heart is mildly increased in size. Coronary artery calcifications. Mitral annulus calcific ations. MEDIASTINUM: No gross evidence of adenopathy. Scattered mediastinal and left hilar calcified lymph no sabas. VASCULATURE: No aortic aneurysm. MUSCULOSKELETAL: Healing right-sided rib fractures with calcification. Posttraumatic deformity of the [id number] body with chronic collapse and partial interbody ankylosis at T3-T4. Grade 1 anterolisth esis at T2-T3. Accentuated thoracic kyphosis. SOFT TISSUES/LYMPH NODES: Unremarkable. LOWER NECK: No significant findings. UPPER ABDOMEN: Bilateral renal cysts with left upper pole cyst slightly increased in size from prior examination. Similar irregular appearance of the spleen likely related to prior injury. Scattered col onic diverticulosis without evidence for acute diverticulitis. Large left hiatal hernia containing th e entire stomach and portion of nonobstructive colon. Stomach demonstrates an organoaxial position. IMPRESSION: * Stable left lobe pulmonary nodule with less conspicuous appearance of right upper lobe pulmonary n odule. No new or enlarging pulmonary nodules. * Redemonstration of large hiatal hernia containing entire stomach with organoaxial positioning. Add ition there is a portion of nonobstructive colon demonstrated within the hernia. * Sequelae of granulomatous disease.
--- NOTE | 2022-01-01 16:38 | CONS ---
PETE Hurtado is an 86-year-old lady who [facility] because of recurrent [facility]. She presented to hospital having had an episode of chest pain. There is no prior history of coronary artery disease. Her chest pain is sharp, mild in intensity, pericardial, unrelated to exertion and not associated with diaphoresis. She had an EKG on this admission that revealed sinus rhythm with left bundle branch block. She has had 3 sets of cardiac enzymes that are negative. Labs show that the hemoglobin is normal. Creatinine is normal. The patient's clinical presentation is consistent with atypical chest pain. I will obtain a 2D echo to assess LV function and wall motion. If that looks normal, ambulate her. Hopefully home later today and outpatient followup with Cardiology. Past medical history is significant for recurrent falls, hypothyroidism, hypertension. Current medications include Zofran, Tylenol, Lopressor, , K-Dur, Synthroid, Hydrea, Bumex, Norvasc and aspirin. ALLERGIC TO SULFA. Family history is negative for premature coronary artery disease. Social history is negative for current smoking, EtOH abuse or drug abuse. REVIEW OF SYSTEMS: HEENT is unremarkable. CARDIAC: As described above. RESPIRATORY: Negative. On exam, patient appears comfortable at rest. Vital signs are stable. There is no jugular venous distention. Chest exam reveals good air entry bilaterally. Heart exam reveals first and second heart sounds, systolic murmur at the apex. Abdomen is soft. Examination of extremities reveals 1+ edema. Peripheral pulses are felt. Labs are as described. ASSESSMENT AND PLAN: 1. Precordial chest pain, sharp, atypical. 2. Hypertension. 3. History of recurrent falls. PLAN: Will obtain a 2D echo and decide on further course of action based on the echo findings. MMODL / IJN: [id number] /
[2022-01-01] MEDS: ASPIRIN 81 MG PO SCH (16:51)
[2022-01-01] MEDS: MAGNESIUM OXIDE 400 MG TAB PO SCH (17:29)
[2022-01-01 17:45] LABS: Appearance,Urine Clear (Clear); Bilirubin,Urine Negative (Negative); Blood,Urine Negative (Negative); Color,Urine Colorless; Glucose,Urine (UA) Negative (Negative); Ketones,Urine Negative (Negative); Leukocyte Esterase,Urine Negative (Negative); Nitrite,Urine Negative (Negative); Protein,Urine Negative (Negative); Specific Gravity,Urine 1.017 (1.001-1.035); Urobilinogen,Urine <2.0 mg/dL (<2.0)
[2022-01-01] MEDS: ATORVASTATIN 10 MG TAB PO SCH (20:21)
[2022-01-01 23:52] LABS: Protein, Total 7.7 g/dL (6.2-8.2)
[2022-01-02] MEDS: NITROGLYCERIN OINT 1 INCH/GM PACKET TOPICAL SCH ×3 (06:30→17:16)
[2022-01-02] MEDS: PANTOPRAZOLE 40 MG TABLET PO SCH (08:23)
[2022-01-02] MEDS: amLODIPine 5 MG TAB PO SCH (08:23)
[2022-01-02] MEDS: POTASSIUM CHLORIDE ER 10 MEQ TAB.ER.PRT PO SCH (08:23)
[2022-01-02] MEDS: LEVOTHYROXINE 25 MCG TAB PO SCH (08:23)
[2022-01-02] MEDS: FUROSEMIDE 40 MG TAB PO SCH ×2 (08:23→17:00)
[2022-01-02] MEDS: ANAGRELIDE 0.5 MG CAP PO SCH ×2 (08:23→17:05)
[2022-01-02] MEDS: METOPROLOL TARTRATE 25 MG TAB PO SCH ×2 (08:23→17:05)
--- NOTE | 2022-01-02 13:10 | PN ---
PROGRESS NOTE 86-year-old lady who is admitted to hospital with recurrent falls and an episode of chest pain. At the time of my evaluation this morning, she appears comfortable at rest and is free of significant symptoms. An echocardiogram showed normal left ventricular size, wall motion systolic function and she has mild aortic stenosis. Three sets of cardiac enzymes are negative. On exam, comfortable at rest. Heart rate is 70 beats per minute. Blood pressure is 150/78, respiratory rate 18. Chest exam reveals good air entry bilaterally. Heart exam reveals first and second heart sounds. Ejection systolic murmur in the aortic area. Abdomen is soft. Exam of extremities did not reveal any edema. Peripheral pulses are felt. ASSESSMENT AND PLAN: 1. Precordial chest pain, sharp, atypical. Myocardial infarction ruled out. 2. Recurrent falls, noncardiac in origin. PLAN: Continue the patient on current medication. We will follow the patient with you. MIKE / GINNYN: [id number] /
--- NOTE | 2022-01-02 16:09 | P.PN ---
Subjective Progress Note Date: 01/02/22 Principal diagnosis: Chest pain History of Present Illness H&P Date: 01/01/22 Chief Complaint: Chest pain This is an 86-year-old pleasant lady, patient of Dr. Wood, currently resides at [facility],. Underlying history of CVA TIA hypothyroidism, and thrombocytosis, follows by oncology, was sent in from [facility] secondary to chest pain. Apparently she was noted to have a heart rate between 100-130 over there, and was subsequently sent in, 4 monitory. Patient has chest discomfort whenever she walks and stands or ambulates, it started at 2:30 in the morning, incidentally she also has some hiatal hernia, with intrathoracic stomach is on imaging. Patient denies any lightheadedness dizziness, no falls, no syncope. No calf, or swelling the leg. Or pain in the leg. Patient is seen in the emergency room, with consult to cardiology Previous review of imaging, 02/06/2019, COPD noted, there is a 4 mm right upper lobe pulmonary nodule, and another 4 mm right upper lobe pulmonary nodule, there is a very large hiatal hernia, containing the entire stomach, and distal half of the transverse colon In emergency room, double basic count is 12.7 hemoglobin 14, MCV 107 iron and 1.0, troponin, creatinine 0.7, liver function tests normal, sodium below 132 EKG, sinus rhythm 77, with IA interval 172, QTC 392, left bundle branch block which is new 01/02 patient seen for follow-up, no chest pain no shortness of breath, cardiology is following, no current recommendation, has mild aortic stenosis, pulse ox 95% on room air, no fever, heart rate in the 60s to 80s, urinalysis negative B12 normal, LDL 37 medical management at this time awaiting return to [facility], in the next 24 hours ASSESSMENT AND PLAN 1. Chest pain, with new left bundle branch block, episode of tachycardia, rule out myocardial infarction patient will be seen consultation by cardiology, echocardiogram is requested, check for TSH, troponins are negative 3, LDL of 37, continue metoprolol 75 mg twice a day, nitro when necessary, aspirin 81 mg daily and check fo CT of the chest, for pulmonary nodules that was noted 2. Hypomagnesemia replacements 3. Prior history of TIA 4. Very large Hiatal hernia, intrathoracic stomach left side, patient can get Protonix, and Tums when necessary Pulmonary nodule, noted in 2019, follow-up CT, chest with contrast Hyperlipidemia, on Lipitor 10 mg daily Hypothyroidism check for TSH patient is on levothyroxine 25 g daily Leukocytosis, check for urinalysis, also has elevation of red blood cell volume, check for vitamin B 12, patient has target cells. Review of Systems Constitutional: Reports as per HPI, Denies malaise, Denies night sweats, Denies poor appetite, Denies weight gain Ears, nose, mouth and throat: Reports as per HPI, Denies ant. neck pain, Denies headache, Denies odynophagia Cardiovascular: Reports as per HPI, Reports chest pain, Denies irregular heart beat, Denies leg edema, Denies rapid heart beat Respiratory: Reports as per HPI, Reports dyspnea, Reports pain Gastrointestinal: Reports as per HPI, Reports indigestion, Denies hematemesis, Denies hematochezia, Denies jaundice, Denies melena, Denies nausea, Denies vomiting Genitourinary: Reports as per HPI, Denies kidney stones Menstruation: Reports as per HPI, Reports postmenopausal Musculoskeletal: Reports gait dysfunction, Denies limitation of motion, Denies prior amputations Integumentary: Reports as per HPI Neurological: Reports as per HPI, Denies aphasia, Denies ataxia, Denies balance difficulties, Denies burning pain, Denies change in mentation, Denies change in smell/taste, Denies change in speech, Denies confusion, Denies convulsions, Denies double vision, Denies gait dysfunction, Denies head injury, Denies headaches, Denies hearing difficulties, Denies lack of coordination, Denies loss of vision, Denies memory loss, Denies migraines, Denies motor disturbance, Denies numbness, Denies paralysis, Denies paresthesias, Denies seizures, Denies sensory deficit, Denies spasticity, Denies syncope, Denies tic, Denies tingling, Denies transient paralysis, Denies tremors, Denies vertigo, Denies weakness, Denies visual changes Psychiatric: Reports as per HPI Endocrine: Reports as per HPI Hematologic/Lymphatic: Reports as per HPI Allergic/Immunologic: Reports as per HPI Physical Exam Vitals: Vital Signs Temp Pulse Pulse Resp BP BP Pulse Ox 01/01/22 07:00 98.1 F 91 17 148/76 94 L 01/01/22 02:45 98.1 F 84 17 134/68 95 01/01/22 02:00 84 17 12/31/21 20:00 18 12/31/21 19:00 98.1 F 99 17 123/69 94 L 12/31/21 17:01 85 18 160/87 100 12/31/21 13:39 12/31/21 13:22 98.1 F 80 18 170/80 FiO2 01/01/22 07:00 01/01/22 02:45 01/01/22 02:00 12/31/21 20:00 12/31/21 19:00 12/31/21 17:01 12/31/21 13:39 2 12/31/21 13:22 Intake and Output 12/31/21 01/01/22 01/01/22 22:59 06:59 14:59 Intake Total 120 Balance 120 Intake: Oral 120 Other: Voiding Method Toilet # Voids 1 2 # Bowel Movements 1 Weight 63.957 kg - Constitutional General appearance: average body habitus, cooperative, no acute distress - EENT ENT: hearing grossly normal, NA/AT, normal oropharynx - Neck Neck: normal ROM - Respiratory Respiratory: bilateral: CTA, negative: diminished, dullness - Cardiovascular Rhythm: regular Heart sounds: normal: S1, S2 Abnormal Heart Sounds: no systolic murmur, no diastolic murmur, no rub, no S3 Gallop, no S4 Gallop, no click, no other - Gastrointestinal General gastrointestinal: organomegaly, soft - Integumentary Integumentary: decreased turgor, normal - Neurologic Neurologic: CNII-XII intact - Musculoskeletal Musculoskeletal: gait normal, strength equal bilaterally - Psychiatric Psychiatric: A&O x's 3, appropriate affect, intact judgment & insight Current Medications Acetaminophen (Acetaminophen Tab 325 Mg Tab) 650 mg PO Q4H PRN PRN Reason: Fever and/ or Pain Last Admin: 01/01/22 08:08 Dose: 650 mg Amlodipine Besylate (Amlodipine 5 Mg Tab) 5 mg PO DAILY@0800 [facility] Last Admin: 01/02/22 08:23 Dose: 5 mg Anagrelide HCl (Anagrelide 0.5 Mg Cap) 0.5 mg PO BID@0800,1700 [facility] Last Admin: 01/02/22 08:23 Dose: 0.5 mg Aspirin (Aspirin 81 Mg) 81 mg PO DAILY@1700 [facility] Last Admin: 01/01/22 16:51 Dose: Not Given Atorvastatin Calcium (Atorvastatin 10 Mg Tab) 10 mg PO HS@2100 [facility] Last Admin: 01/01/22 20:21 Dose: 10 mg Bisacodyl (Bisacodyl 10 Mg Supp) 10 mg RECTAL DAILY PRN PRN Reason: Constipation Calcium Carbonate/Glycine (Calcium Carbonate 500 Mg Chewable) 500 mg PO TID PRN PRN Reason: Heartburn Last Admin: 01/01/22 21:46 Dose: 500 mg Furosemide (Furosemide 40 Mg Tab) 40 mg PO BID@0900,1500 [facility] Last Admin: 01/02/22 08:23 Dose: 40 mg Levothyroxine Sodium (Levothyroxine 25 Mcg Tab) 25 mcg PO DAILY@0800 [facility] Last Admin: 01/02/22 08:23 Dose: 25 mcg Magnesium Hydroxide (Magnesium Hydroxide 2,400 Mg/10 Ml Cup) 2,400 mg PO Q48H PRN PRN Reason: Constipation Magnesium Oxide (Magnesium Oxide 400 Mg Tab) 400 mg PO DAILY@1700 [facility] Last Admin: 01/01/22 17:29 Dose: 400 mg Metoprolol Tartrate (Metoprolol Tartrate 25 Mg Tab) 75 mg PO BID@0800,1700 [facility] Last Admin: 01/02/22 08:23 Dose: 75 mg Miscellaneous Information (Rx Info: Iv Contrast Was Given 1 Each Misc) 1 each MISCELLANE DAILY PRN PRN Reason: Per Protocol Stop: 01/03/22 14:26 Nitroglycerin (Nitroglycerin Sl Tabs 0.4 Mg Tab) 0.4 mg SUBLINGUAL Q5M PRN PRN Reason: Chest Pain Nitroglycerin (Nitroglycerin Oint 1 Inch/Gm Packet) 1 inch TOPICAL Q6HR [facility] Last Admin: 01/02/22 11:32 Dose: Not Given Pantoprazole Sodium (Pantoprazole 40 Mg Tablet) 40 mg PO DAILY@0800 [facility] Last Admin: 01/02/22 08:23 Dose: 40 mg Potassium Chloride (Potassium Chloride Er 10 Meq Tab.Er.Prt) 10 meq PO DAILY@0800 [facility] Last Admin: 01/02/22 08:23 Dose: 10 meq Laboratory Results - Last 24 Hours 01/01/22 01/01/22 01/01/22 15:07 15:07 17:02 Total Protein (PEP) 7.7 Vitamin B12 974.0 H Urine Color Colorless Urine Appearance Clear Urine pH 7.0 Ur Specific [place] 1.017 Urine Protein Negative Urine Glucose (UA) Negative Urine Ketones Negative Urine Blood Negative Urine Nitrite Negative Urine Bilirubin Negative Urine Urobilinogen <2.0 Ur Leukocyte Esterase Negative Vital Signs - 24 hr 01/01/22 01/01/22 01/01/22 17:00 19:49 20:00 Temperature 98.1 F Pulse Rate [ 82 Pulse Oximetery ] Respiratory 18 17 Rate Blood Pressure [Left Arm Sitting] Blood Pressure 149/79 [Right Arm] O2 Sat by Pulse 95 92 L Oximetry 01/02/22 01/02/22 01/02/22 01:35 02:00 07:00 Temperature 98.3 F 98 F Pulse Rate [ 84 56 L Pulse Oximetery ] Respiratory 16 16 19 Rate Blood Pressure [Left Arm Sitting] Blood Pressure 143/71 150/78 [Right Arm] O2 Sat by Pulse 93 L 93 L Oximetry 01/02/22 01/02/22 08:26 14:53 Temperature 97.5 F L Pulse Rate [ 97 82 Pulse Oximetery ] Respiratory 18 Rate Blood Pressure 135/83 [Left Arm Sitting] Blood Pressure [Right Arm] O2 Sat by Pulse 95 Oximetry Objective - Vital Signs Vital signs: Vital Signs Temp 98 F 01/02/22 07:00 Pulse 97 01/02/22 08:26 Resp 19 01/02/22 07:00 BP 150/78 01/02/22 07:00 Pulse Ox 93 L 01/02/22 07:00 FiO2 2 12/31/21 13:39 Intake & Output 01/01/22 01/02/22 01/02/22 18:59 06:59 18:59 Intake Total 256 Balance 256 Intake: Oral 256 Other: Voiding Method Toilet Toilet # Voids 1 1 # Bowel Movements 1 - Labs CBC & Chem 7: 12/31/21 13:35 12/31/21 13:35 Labs: Abnormal Lab Results - Last 24 Hours (Table) 01/01/22 Range/Units 15:07 Vitamin B12 974.0 H (200.0-944.0) pg/mL
[2022-01-02] MEDS: ASPIRIN 81 MG PO SCH (17:05)
[2022-01-02] MEDS: MAGNESIUM OXIDE 400 MG TAB PO SCH (17:06)
[2022-01-02] MEDS: ACETAMINOPHEN TAB 325 MG TAB PO PRN (22:28)
[2022-01-02] MEDS: ATORVASTATIN 10 MG TAB PO SCH (22:29)
[2022-01-03] MEDS: NITROGLYCERIN OINT 1 INCH/GM PACKET TOPICAL SCH ×3 (06:17→11:02)
[2022-01-03] MEDS: METOPROLOL TARTRATE 25 MG TAB PO SCH ×2 (07:28→16:27)
[2022-01-03] MEDS: ANAGRELIDE 0.5 MG CAP PO SCH ×2 (07:28→16:27)
[2022-01-03] MEDS: PANTOPRAZOLE 40 MG TABLET PO SCH (07:28)
[2022-01-03] MEDS: POTASSIUM CHLORIDE ER 10 MEQ TAB.ER.PRT PO SCH (07:28)
[2022-01-03] MEDS: LEVOTHYROXINE 25 MCG TAB PO SCH (07:28)
[2022-01-03] MEDS: amLODIPine 5 MG TAB PO SCH (07:28)
[2022-01-03] MEDS: FUROSEMIDE 40 MG TAB PO SCH ×2 (07:28→15:00)
[2022-01-03 07:49] VITALS: RESP 16
[2022-01-03 09:24] LABS: African American GFR (CKD) 66.6 (60.0-200.0); Anion Gap 10.3 mmol/L (10.00-18.00); BUN/Creat Ratio 26.11 Ratio (12.00-20.00); Blood Urea Nitrogen 23.5 mg/dL (9.0-27.0); Calcium 9.7 mg/dL (8.7-10.3); Carbon Dioxide 27.7 mmol/L (20.0-27.5); Non-African American GFR(CKD) 57.5 (60.0-200.0)
[2022-01-03 09:46] LABS: HCT 39.2 % (37.2-46.3); HGB 12.7 g/dL (12.0-15.0); MCH 32.7 pg (27.0-32.0); MCHC 32.4 g/dL (32.0-37.0); NRBC Per 100 WBC 0 /100 WBCS (0.0-0.0); Platelet Count 351 X 10*3/uL (140-440); RBC 3.88 X 10*6/uL (4.10-5.20); RDW 15.2 % (11.5-14.5); WBC 12.34 X 10*3/uL (4.50-10.00)
[2022-01-03 10:13] LABS: Basophils # (A) 0.08 X 10*3/uL (0.00-0.10); Basophils % (A) 0.6 %; Eosinophils # (A) 0.47 X 10*3/uL (0.04-0.35); Eosinophils % (A) 3.8 %; Immature Grans, Automated 0.4 %; Lymphocytes # (A) 4.38 X 10*3/uL (0.90-5.00); Lymphocytes % (A) 35.5 %; Monocytes # (A) 0.96 X 10*3/uL (0.20-1.00); Monocytes % (A) 7.8 %; Neutrophils % (A) 51.9 %
[2022-01-03 11:10] LABS: Albumin 4.34 g/dL (3.80-4.90); Gamma Globulin 1.15 g/dL (0.70-1.50)
--- NOTE | 2022-01-03 14:05 | P.DS ---
Providers Date of admission: 12/31/21 16:16 Expected date of discharge: 01/03/22 Attending physician: Doug Wood Primary care physician: Doug Wood [facility] Course: Final diagnosis Chest pain, new left bundle branch block with an episode of tachycardia, ruled out myocardial infarction Hypomagnesemia, improved History of TIA History of very large hiatal hernia with no plans for surgical intervention Pulmonary nodule that has been followed since 2019 Hyperlipidemia Hypothyroidism Leukocytosis, possibly reactive with no fever or UTI noted on urinalysis No code Discharge disposition Patient is being discharged in a stable condition with guarded prognosis to [facility] . Patient will follow-up with Dr. Wood in the outpatient setting upon discharge. Continue holding Hydrea and sodium chloride tabs until follow-up. Recommend repeat CBC and BMP in the next 2-3 days Total time taken is greater than 35 minutes. Hospital course This is a 86-year-old female who was recently admitted with chest pain and lives at [facility]. Patient reportedly had heart rates that were elevated and sent here for telemetry monitoring. Cardiology evaluated the patient with no plans at this time. Patient will need repeat labs as patient did have a mildly elevated white blood count and per her primary Hydrea and sodium bicarb tablets have been on hold and will need repeat labs and follow-up with primary care provider in the next couple of days. Currently no reports of chest pain, shortness of breath, or palpitations. Patient is afebrile. No reports of nausea or vomiting and patient is tolerating diet. Patient will be going to [facility] today. Physical exam: Gen: This is a 86-year-old female awake, alert and oriented 3, well-developed, well-nourished. HEENT: Head is atraumatic, normocephalic. Pupils equal, round. Sclerae is anicteric. NECK: Supple. No JVD. No lymphadenopathy. No thyromegaly. LUNGS: Clear to auscultation. No wheezes or rhonchi. No intercostal retractions. HEART: Regular rate and rhythm. No murmur. ABDOMEN: Soft. Bowel sounds are present. No masses. No tenderness. EXTREMITIES: No pedal edema. No calf tenderness. NEUROLOGICAL: Patient is awake, alert and oriented x3. Cranial nerves 2 through 12 are grossly intact. Please refer to medication reconciliation sheet for a list of medications. The impression and plan of care has been dictated by Stephanie Harrison, Nurse Practitioner as directed. Dr. Rusty MD I have performed a history and examination and MDM of this patient, discussed the same with the dictator, and agree with the dictator's assessment and plan as written ,documented as a scribe. Based on total visit time, I have performed more than 50% of the visit. Patient Condition at Discharge: Fair Plan - Discharge Summary New Discharge Prescriptions: New Furosemide [Lasix] 40 mg PO BID@0900,1500 tab Calcium Carbonate [Tums] 500 mg PO TID PRN tab PRN Reason: Heartburn Nitroglycerin Sl Tabs [Nitrostat] 0.4 mg SUBLINGUAL Q5M PRN tab PRN Reason: Chest Pain Continue amLODIPine BESYLATE [Norvasc] 5 mg PO DAILY@0800 Levothyroxine Sodium [Synthroid] 25 mcg PO DAILY@0800 Anagrelide HCl [Agrylin] 0.5 mg PO BID@0800,1700 Omeprazole 20 mg PO DAILY@0800 Vitamin B Complex 1 cap PO DAILY@1700 Lovastatin [Altoprev] 20 mg PO HS@2100 Ondansetron [Zofran] 4 mg PO Q6H PRN PRN Reason: Nausea Cholecalciferol [Vitamin D3 (25 Mcg = 1000 Iu)] 50 mcg PO DAILY@1700 Lidocaine 5% Patch [Lidoderm 5% Patch] 1 patch TOPICAL DAILY@2130 Potassium Chloride [Potassium Chloride ER] 10 meq PO DAILY@0800 Fluticasone Nasal Taylor [Flonase Nasal Taylor] 2 spray EA NOSTRIL DAILY@0800 Magnesium Hydroxide [Milk of Magnesia Concentrate] 7,200 mg PO Q48H PRN PRN Reason: Constipation bisacodyL [Dulcolax] 10 mg RECTAL DAILY PRN PRN Reason: Constipation Na Phos,M-B/Na Phos,Di-Ba [Fleet Adult] 133 ml RECTAL DAILY PRN PRN Reason: Constipation Ensure Enlive 120 ml PO TID@0800,1200,1700 Acetaminophen [Tylenol] 650 mg PO Q4H PRN PRN Reason: Fever And/ Or Pain Vit C/E/Zn/Coppr/Lutein/Zeaxan [Preservision Areds 2 Softgel] 1 cap PO BID@0800,1700 Metoprolol Tartrate [Lopressor] 75 mg PO BID@0800,1700 Vitamin A Acetate [Vitamin A] 10,000 unit PO DAILY@0800 Magnesium Oxide 400 mg PO DAILY@1700 Aspirin 81 mg PO DAILY@1700 Discontinued Hydroxyurea [Hydrea] 500 mg PO SUTUTHSA@0800 Hydroxyurea 1,000 mg PO MOWEFR@0800 Sodium Chloride Tab 1 gm PO DAILY@0800 Bumetanide [Bumex] 1 mg PO DAILY@0800 Calcium Carbonate 500 mg PO DAILY@0800 Discharge Medication List Anagrelide HCl [Agrylin] 0.5 mg PO BID@0800,1700 11/06/15 [History] Levothyroxine Sodium [Synthroid] 25 mcg PO DAILY@0800 11/06/15 [History] amLODIPine BESYLATE [Norvasc] 5 mg PO DAILY@0800 11/06/15 [History] Omeprazole 20 mg PO DAILY@0800 04/18/16 [History] Vitamin B Complex 1 cap PO DAILY@17008/09/20 [History] Lovastatin [Altoprev] 20 mg PO HS@2100 11/24/20 [History] Acetaminophen [Tylenol] 650 mg PO Q4H PRN 12/31/21 [History] Aspirin 81 mg PO DAILY@169912/31/21 [History] Cholecalciferol [Vitamin D3 (25 Mcg = 1000 Iu)] 50 mcg PO DAILY@169912/31/21 [History] Ensure Enlive 120 ml PO TID@0800,1200,1700 12/31/21 [History] Fluticasone Nasal Taylor [Flonase Nasal Taylor] 2 spray EA NOSTRIL DAILY@79912/31/21 [History] Lidocaine 5% Patch [Lidoderm 5% Patch] 1 patch TOPICAL DAILY@212912/31/21 [History] Magnesium Hydroxide [Milk of Magnesia Concentrate] 7,200 mg PO Q48H PRN 12/31/21 [History] Magnesium Oxide 400 mg PO DAILY@169912/31/21 [History] Metoprolol Tartrate [Lopressor] 75 mg PO BID@0800,1700 12/31/21 [History] Na Phos,M-B/Na Phos,Di-Ba [Fleet Adult] 133 ml RECTAL DAILY PRN 12/31/21 [History] Ondansetron [Zofran] 4 mg PO Q6H PRN 12/31/21 [History] Potassium Chloride [Potassium Chloride ER] 10 meq PO DAILY@0800 12/31/21 [History] Vit C/E/Zn/Coppr/Lutein/Zeaxan [Preservision Areds 2 Softgel] 1 cap PO BID@0800,1700 12/31/21 [History] Vitamin A Acetate [Vitamin A] 10,000 unit PO DAILY@0800 12/31/21 [History] bisacodyL [Dulcolax] 10 mg RECTAL DAILY PRN 12/31/21 [History] Calcium Carbonate [Tums] 500 mg PO TID PRN tab 01/03/22 [Rx] Furosemide [Lasix] 40 mg PO BID@0900,1500 tab 01/03/22 [Rx] Nitroglycerin Sl Tabs [Nitrostat] 0.4 mg SUBLINGUAL Q5M PRN tab 01/03/22 [Rx] Follow up Appointment(s)/Referral(s): Doug Wood MD [Primary Care Provider] - 1-2 days Ambulatory/Diagnostic Orders: Complete Blood Count w/diff [LAB.AMB] Time Frame: 3 Days, Location: None Selected Activity/Diet/Wound Care/Special Instructions: Patient is returning to [facility] Activity as tolerated Continue taking medications as prescribed Continue holding hydroxyurea and sodium bicarb until follow-up with primary Dr. Wood recommend repeat labs of CBC and BMP in 2-3 days Discharge Disposition: TRANSFER TO SNF/ECF
[2022-01-03 15:18] VITALS: BP 147/74; PULSE 81; TEMP 97.7
[2022-01-03] MEDS: MAGNESIUM OXIDE 400 MG TAB PO SCH (16:27)
[2022-01-03] MEDS: ASPIRIN 81 MG PO SCH (16:28)
== END 2022-01-03 16:45 ==
LOC: EC 13:19 → 6NMEDSUR 16:16
PROVIDERS: ADMIT Internal Medicine Geriatric Medicine; ATTEND Internal Medicine Geriatric Medicine
DX: I44.7 Left bundle-branch block, unspecified (principal); I35.0 Nonrheumatic aortic (valve) stenosis; R91.8 Other nonspecific abnormal finding of lung field; R07.2 Precordial pain; R07.89 Other chest pain; R29.6 Repeated falls; Z20.822 Contact with and (suspected) exposure to COVID-19; E03.9 Hypothyroidism, unspecified; I10 Essential (primary) hypertension; Z86.73 Personal history of transient ischemic attack (TIA), and cerebral infarction without residual deficits; D75.839 Thrombocytosis, unspecified; R00.0 Tachycardia, unspecified; D72.829 Elevated white blood cell count, unspecified; E78.5 Hyperlipidemia, unspecified; E83.42 Hypomagnesemia; J44.9 Chronic obstructive pulmonary disease, unspecified; K44.9 Diaphragmatic hernia without obstruction or gangrene; Z96.652 Presence of left artificial knee joint; Z98.42 Cataract extraction status, left eye; Z98.890 Other specified postprocedural states; Z79.890 Hormone replacement therapy; Z79.899 Other long term (current) drug therapy; Z79.82 Long term (current) use of aspirin; Z88.2 Allergy status to sulfonamides
CPT/HCPCS: 99285; 36415; 93005; 93306; 80061; 80053; 80048; 82607; 83735; 84484; 85025 ×2; 85610; 85730; 81003; 84165; 86334; 87635; 71046; 71260; G0378 ×4; Q9967